=== PATIENT | male | born 1975 | race Caucasian/White ===

== ENCOUNTER 2024-09-29 12:29 | Inpatient (IN) | payer OTHER, SELFPAY ==
[2024-09-29] VITALS (29 sets, daily range): BP systolic 121–157; BP diastolic 81–102; PULSE 94–114; RESP 15–33; TEMP 36.7–36.9; O2SAT 94–100; BMI 35.4; BMI 35.6
--- NOTE | ~2024-09-29 | XR_ITS ---
CHEST RADIOGRAPH, PA AND LATERAL CLINICAL HISTORY: lower extremity edema . COMPARISON: 04/22/2013 TECHNIQUE: PA and lateral views of the chest. FINDINGS The cardiomediastinal silhouette is unremarkable. Blunting of the bilateral costophrenic sulci consistent with small bilateral pleural effusions. Increased interstitial markings are identified bilaterally, findings suggesting mild pulmonary vascul ar congestion. The lungs are otherwise clear. IMPRESSION: Bilateral pleural effusions, left greater than right. Mild pulmonary vascular congestion. Reviewed, dictated and finalized at location A.
--- NOTE | ~2024-09-29 | CT_ITS ---
EXAMINATION: CT abdomen pelvis w con DATE: 09/29/2024 16:26 INDICATION: Lower abdominal pain. Diarrhea TECHNIQUE: Computed tomography (CT) of the abdomen and pelvis was performed without intravenous contr ast. The dose-length product was 1207.41 mGy-cm. COMPARISON: None. FINDINGS: Small bilateral pleural effusions. Small consolidations in the lower lobes likely compressi ve atelectasis. Heart is borderline enlarged. There are a few coronary artery calcifications. There i s a gastric band. There are a few small patchy opacities in the lower lungs. The spleen, adrenal glan ds, pancreas are unremarkable. Gallbladder is unremarkable. There are a few too small to characterize low-attenuation lesions in the kidneys. Abdominal aorta is not aneurysmal. No enlarged lymph nodes i n the abdomen. Liver is heterogeneous. No enlarged lymph nodes in the pelvis. Bladder is unremarkable. Small amount of nonspecific anasarca. Prostate gland is mildly enlarged and partially calcified. Small amount of nonspecific fluid and fat stranding scattered throughout the abdomen and pelvis. No appendicitis. Segment focal thickening of the green of the mid transverse colon. Differential includes incomplete b owel wall distention, focal colitis or mass. Direct visualization is recommended. Probable congenital variant of the L4 vertebral body. IMPRESSION: 1. Segment focal thickening of the green of the mid transverse colon. Differential includes incomplet e bowel wall distention, focal colitis or mass. Direct visualization is recommended. 2. Small amount of nonspecific fluid and fat saturated scattered throughout the abdomen and pelvis. 3. Small bilateral pleural effusions. 4. Small consolidations in the lower lobes likely compressive atelectasis. 5. Small patchy opacities in the lower lungs. 6. Liver is heterogeneous possibly due to patchy focal fatty infiltration or hepatocellular disease. Other etiologies are possible. Consider a liver mass MRI for further assessment. Findings as above. Reviewed, dictated and finalized at location A. IMPRESSION: 1. Segment focal thickening of the green of the mid transverse colon. Different ial includes incomplete bowel wall distention, focal colitis or mass. Direct vi sualization is recommended. 2. Small amount of nonspecific fluid and fat saturated scattered throughout the abdomen and pelvis. 3. Small bilateral pleural effusions. 4. Small consolidations in the lower lobes likely compressive atelectasis. 5. Small patchy opacities in the lower lungs. 6. Liver is heterogeneous possibly due to patchy focal fatty infiltration or he patocellular disease. Other etiologies are possible. Consider a liver mass MRI for further assessment. Findings as above.
--- OUTSIDE RECORDS SUMMARY | 2024-09-29 13:16 | XMS_ITS | Encounter Summary ---
Author Organization [facility] Healthcare Address [address] [place] [address] Care Team Providers Care Bottler Helper Name Role Phone Roland Salmeron MD Primary Care Provider [phone] Reason for Visit * Reason Comments Abdominal Pain Pressure in his abdo marino area, X 4 weeks, Bowel movements are very small amounts, Gained 20 to 30 pounds since the beginning of August Encounter Details Date Type Department Care Team (Late st Contact Info) Description 09/29/2024 11:45 AM CDT Office Visit [facility] [address] [address] Maribel Doss NP [address] [place] [address] [address] [place] [address] Abdominal pressure (Primary Dx); Weight gain; Change in bowel movement; Elevated blood pressure reading in office with diagnosis of hypertension; Wound of right lower extremity, initial encounter Social History Tobacco Use Types Packs/Day Years Used Date Smoking Tobacco: Former Cigars Q uit: 2009 Passive Smoke Exposure: Never Smokeless Tobacco: Never Alcohol Use Standard Drinks/Week Comments No 0 (1 standard drink = 0.6 oz pur e alcohol) AUDIT-C Answer Date Recorded Q1: How often do you have a drink containing alcohol? Never 04/07/2024 Q2: How many drinks containi ng alcohol do you have on a typical day when you are drinking? Patient does not drink Q3: How often do you have si x or more drinks on one occasion? Never 04/07/2024 PHQ-2 Answer Date Recorded PHQ-2 Total Score (If total score is 3 or more points, staff should administer the PHQ-9) 0 08/14/2023 Education Answer Date Recorded What is the highest level of school you have completed or the highest degree you have received? 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 Not on file Not on f ile documented as of this encounter Last Filed Vital Signs Vital Sign Reading Time Taken Comments Blood Pressure 170/106 09/29/2024 11:43 AM CDT Pulse 114 09/29/2024 11:43 AM CDT Temperature 36.3 C (97.3 F) 09/29/2024 11:43 AM CDT Respiratory Rate 18 09/29/2024 11:4 3 AM CDT Oxygen Saturation 99% 09/29/2024 11: 43 AM CDT Inhaled Oxygen Concentration - - Weight 115.3 kg (254 lb 3.2 oz) 025 11:43 AM CDT Height 175.3 cm (5' 9.02) 09/29/2024 1 1:43 AM CDT Body Mass Index 37.52 09/29/2024 11:43 AM CDT documented in this encounter Patient Instructions * Patient Instructions* Maribel Doss NP - 09/29/2024 11:45 AM CDT documented in this encounter Ordered Prescriptions Prescription Sig Dispense Quantity Refills Last Filled Start Date End Date mupirocin (BACTROBAN) 2 % ointmentIndication s:Wound of right lower extremity, initial encounter Apply topically 3 (three) times a day 22 g 09/29/2024 doxycycline (VIBRAMYCIN) 100 mg capsuleIndications :Wound of right lower extremity, initial encounter Take 1 tablet/capsule (100 mg total) by mouth 2 (two) times a day for 10 days 20 tablet/capsule 09/29/2024 documented in this encounter Progress Notes * Maribel Doss, SCREEN PRINTING MACHINE OPERATOR HELPER - 09/29/2024 11:45 AM CDT Images from the original note were not included. Subjective/Objective Patient ID: Dillon Alex is a 49 y.o. male. This patient has verbally consented to recording this visit in order to utilize AI technology in generating this note. Chief Complaint Abdominal Pain (Pressure in his abdominal area, X 4 weeks, /Bowel movements are very small amounts,/Gained 20 to 30 pounds since the beginning of August) History of Present Illness Dillon Alex is a 49 year old male with diabetes who presents with abdominal pressure and significant weight gain. He has been experiencing abdominal pressure for the past four weeks, beginning around early August. The pressure is described as a feeling of compaction in the abdomen, particularly noticeable when lying down or engaging in physical activities such as moving furniture. No sharp abdominal pain is present, but he describes a sensation sanjay to being 'punched in the stomach'. He noted a significant weight gain of thirty pounds over the last four to five weeks, initially attributing some of it to birthday celebrations. He has a history of gastric band surgery, which affects his ability to vomit; only saliva or stomach acid may come up if he eats too fast. He has not experienced recent vomiting episodes. He reports decreased urination despite high water intake, consuming three to four 40-ounce bottles of water daily. He also notes a change in bowel habits over the past month, with bowel movements becoming less frequent and consisting of small, pebble-like stools. His last bowel movement was the daybefore the visit and was described as very difficult. He has noticed swelling in his feet and legs. He does not wear compression socks and has not experienced numbness or loss of sensation in his legs. He has a wound on his right leg, which has been present for about a week following an injury. The wound is weeping, and he is concerned about it due to his diabetic status. Both legs are equally swollen, but only the right leg has the wound. No recent vomiting, sharp abdominal pain, or numbness in the legs. He confirms swelling in both feet and legs, decreased urination, and changes in bowel movements. Review of Systems All other systems reviewed and are negative. Physical Exam EXTREMITIES: 1+ pitting edema in both legs and feet. SKIN: Weeping wound on right lower leg. Physical Exam Vitals reviewed. Constitutional: General: He is not in acute distress. Appearance: Normal appearance. He is not ill-appearing. HENT: Head: Normocephalic. Mouth/Throat: Lips: [place]. Cardiovascular: Rate and Rhythm: Regular rhythm. Tachycardia present. Heart sounds: Normal heart sounds. Pulmonary: Effort: Pulmonary effort is normal. Breath sounds: Normal breath sounds. Abdominal: General: Bowel sounds are normal. There is no distension. Palpations: Abdomen is soft. Tenderness: There is abdominal tenderness. There is no guarding or rebound. Comments: Patient with generalized tenderness/pressure with palpation over his abdomen. Musculoskeletal: Right lower le+ Edema present. Left lower le+ Edema present. Skin: General: Skin is warm. Comments: Right lower leg abrasion that is approximately 6 cm in diameter, there is macerated skin noted to wound bed. Wound is surrounded with erythema. No active drainage noted. Neurological: Mental Status: He is alert and oriented to person, place, and time. Psychiatric: Mood and Affect: Mood normal. Behavior: Behavior is cooperative. Vitals: 09/29/24 1143 BP: (!) 170/106 Pulse: 114 Resp: 18 Temp: 36.3 ??C (97.3 ??F) SpO2: 99% Weight: 115.3 kg (254 lb 3.2 oz) Height: 175.3 cm (5' 9.02) Past Medical History: Diagnosis Date Chronic combined systolic and diastolic heart failure (HCC) 2013 Congestive heart failure, NYHA class 1, chronic, combined - (Added by TW Conv) COVID 03/06/2021 History of noncompliance with medical treatment, presenting hazards to health 05/19/2021 Other benign neoplasm of skin of unspecified part of face Benign neoplasm of skin of face - (Added by TW Conv) Personal history of other endocrine, nutritional and metabolic disease History of type 2 diabetes mellitus - (Added by TW Conv) Type 2 diabetes mellitus with hyperglycemia (HCC) Diabetes mellitus type 2, uncontrolled - (Added by TW Conv) Current Outpatient Medications: amLODIPine (NORVASC) 5 mg tablet, Take 2 tablets (10 mg total) by mouth daily, Disp: 90 tablet, Rfl: 3 atorvastatin (LIPITOR) 20 mg tablet, Take 1 tablet (20 mg total) by mouth daily, Disp: 90 tablet, Rfl: 3 benzonatate (TESSALON) 200 mg capsule, Take 1 capsule (200 mg total) by mouth 3 (three) times a dayas needed for cough, Disp: 30 capsule, Rfl: 0 diclofenac sodium (VOLTAREN) 1 % gel, Apply 2 g topically 4 (four) times a day as needed, Disp: , Rfl: empagliflozin (JARDIANCE) 25 mg tablet, Take 1 tablet (25 mg total) by mouth daily, Disp: , Rfl: ergocalciferol (VITAMIN D) 50,000 unit capsule, Take 1 capsule (50,000 Units total) by mouth once aweek, Disp: 12 capsule, Rfl: 3 fluticasone propionate (FLONASE) 50 mcg/actuation nasal spray, 2 sprays daily, Disp: , Rfl: furosemide (LASIX) 20 mg tablet, Take 1 tablet (20 mg total) by mouth daily, Disp: 90 tablet, Rfl: 3 gabapentin (NEURONTIN) 300 mg capsule, Take 1 capsule (300 mg total) by mouth 3 (three) times a day, Disp: 270 capsule, Rfl: 3 hydroCHLOROthiazide (HYDRODIURIL) 25 mg tablet, Take 1 tablet (25 mg total) by mouth daily, Disp: 30 tablet, Rfl: 2 insulin glargine (LANTUS) 100 unit/mL vial for injection, Inject 80 Units under the skin nightly PLEASE DISPENSE PENS NOT THE VIALS, Disp: 67.5 mL, Rfl: 3 lancets 33 gauge misc, , Disp: , Rfl: lidocaine viscous (XYLOCAINE) 2 % solution, Apply 10 mL to the mouth or throat every 6 (six) hours as needed (sore throat) May mix with 30 ml of Mylanta, Disp: 100 mL, Rfl: 0 losartan (COZAAR) 100 mg tablet, Take 1 tablet (100 mg total) by mouth daily, Disp: 90 tablet, Rfl:3 metFORMIN (GLUCOPHAGE) 1,000 mg tablet, Take 1 tablet (1,000 mg total) by mouth 2 (two) times a daywith meals, Disp: 180 tablet, Rfl: 3 naproxen (NAPROSYN) 500 mg tablet, Take 1 tablet (500 mg total) by mouth, Disp: , Rfl: omeprazole (PriLOSEC) 40 mg capsule, Take 1 capsule (40 mg total) by mouth daily, Disp: 90 capsule,Rfl: 3 ondansetron (ZOFRAN) 4 mg tablet, , Disp: , Rfl: OneTouch Verio test strips strip, Use to test blood sugar 2 times per day., Disp: 100 each, Rfl: 11 pregabalin (LYRICA) 50 mg capsule, Take 1 capsule (50 mg total) by mouth 2 (two) times a day, Disp:30 capsule, Rfl: 0 sod picosulf-mag ox-citric ac (Clenpiq) 10 mg-3.5 gram- 12 gram/175 mL solution, Take as directed, Disp: 350 mL, Rfl: 0 spironolactone (ALDACTONE) 25 mg tablet, Take 1 tablet (25 mg total) by mouth daily, Disp: 30 tablet, Rfl: 2 doxycycline (VIBRAMYCIN) 100 mg capsule, Take 1 tablet/capsule (100 mg total) by mouth 2 (two) times a day for 10 days, Disp: 20 tablet/capsule, Rfl: 0 mupirocin (BACTROBAN) 2 % ointment, Apply topically 3 (three) times a day, Disp: 22 g, Rfl: 0 Allergies Allergen Reactions No Known Allergies Other (See comments) Reaction: Social History Tobacco Use Smoking status: Former Types: Cigars Quit date: 2009 Years since quittin.6 Passive exposure: Never Smokeless tobacco: Never Substance and Sexual Activity Drug use: Not Currently Comment: quit alcohol 8 years ago Sexual activity: Not Currently Partners: Female Alcohol Use: Not At Risk (04/07/2024) AUDIT-C Frequency of Alcohol Consumption: Never Average Number of Drinks: Patient does not drink Frequency of Binge Drinking: Never Past Surgical History: Procedure Laterality Date LAPAROSCOPIC GASTRIC BANDING Laparosc Gastric Restrictive Proc By Adjustable Gastric Band - (Added by TW Conv) Assessment/Plan 1. Abdominal pressure (Primary) 2. Weight gain 3. Change in bowel movement 4. Elevated blood pressure reading in office with diagnosis of hypertension 5. Wound of right lower extremity, initial encounter - doxycycline (VIBRAMYCIN) 100 mg capsule; Take 1 tablet/capsule (100 mg total) by mouth 2 (two) times a day for 10 days Dispense: 20 tablet/capsule; Refill: 0 - mupirocin (BACTROBAN) 2 % ointment; Apply topically 3 (three) times a day Dispense: 22 g; Refill:0 Results No results found for this or any previous visit (from the past 4 hours). Assessment & Plan Abdominal distension and pressure with abnormal bowel movements and rapid abnormal weight gain Abdominal distension, pain, and rapid weight gain suggest possible intestinal blockage or abdominalpathology. Differential includes fluid retention possibly due to renal dysfunction. Gastric band surgery may contribute. - Order abdominal CT scan to evaluate for intestinal blockage or other abdominal pathology. - Order blood work to assess renal function and other potential causes of fluid retention. - Recommend follow-up with primary care for further evaluation and management. - Consider ER evaluation if symptoms worsen. Bilateral lower extremity edema Bilateral lower extremity edema with pitting suggests fluid retention possibly due to renal dysfunction or systemic causes. Compression socks not used. - Recommend follow-up with primary care for evaluation of potential renal dysfunction and management of edema. - Consider use of compression socks after further evaluation. Right lower extremity wound with drainage in diabetic patient Right lower extremity wound with drainage in diabetic patient poses high risk for infection and complications such as osteomyelitis or sepsis. - Prescribe antibiotics to treat the wound infection. - Take a picture of the wound for medical records. - Recommend follow-up with primary care for wound management and monitoring. Education --Pt advise going to the ER for further workup and testing to rule out potential acute abdomen versus abdominal blockage versus acute kidney failure. Discussed with patient that the [facility] unfortunately does not order blood work or do CT scans. Patient verbalized understanding and states that he will go to the ER. EMS declined Disposition Treatment plan including expectations, follow up, and return precautions discussed with patient/parent, verbalizes understanding. Medication dosage, use, and potential adverse reactions discussed with patient/parent. Advised to follow up with PCP if symptoms do not resolve as expected or sooner if condition worsens. Signs/symptoms warranting ER evaluation reviewed. Patient and/or guardian was given an opportunity to ask questions, questions answered. Maribel Doss NP This office note has been partially dictated using Empriv[employer] software, and as a result portions of the record may have been created with this software. Occasional wrong-word or '[id number]' substitutions may have occurred due to the inherent limitations of voice recognition software. Read the chartcarefully and recognize, using context, where substitutions have occurred. Cosigned by Ruben Reyes MD at 09/29/2024 12:10 PM CDT documented in this encounter Plan of Treatment Not on file documented as of this encounter Visit Diagnoses Diagnosis Abdominal pressure- Primary Abdominal pain, unspecified site Weight gain Other symptoms concerning nutrition, metabolism, and development Change in bowel movement Elevated blood pressure reading in office with diagnosis of hypertension Wound of right lower extremity, initial encounter documented in this encounter Discontinued Medications Medication Sig Discontinue Reason Start Date End Da te mupirocin (BACTROBAN) 2 % ointmentIndications:Helen lulitis of left lower extremity Apply topically 3 (three) times a day Therapy completed 03/01/2024 09/29/2024 documented as of this encounter Care Teams Bottler Helper Relationship Specialty Start Date End Date Roland Salmeron MD [address] [place] [address] PCP - General Family Medicine 05/17/21 documented as of this encounter
--- OUTSIDE RECORDS SUMMARY | 2024-09-29 13:16 | XMS_ITS | Clinical Summary ---
Author Organization [facility] Address [address] [place] [address] Care Team Providers Care Retail Assistant Name Role Phone Unavailable Primary Care Provider Unavailabl e Source Comments [facility],non-owned Affiliates and Associated Physician Practices is amultiple site organization consisting of ambulatory clinics and hospital sitesin [place], [place], [place] and [place]. This disclosure is being madepursuant to the Care Everywhere program and may not contain all information available regarding this patient. Last updated 17.[facility] Allergies No known active allergies Medications * Be aware that medications may not be up to date on this document. Alwaysverify current medications with the patient. diclofenac sodium (Voltaren) 1 % gel Apply 2 (two) g to affected area 4 times daily as needed 2 g 3 3 Active atorvastatin (Lipitor) 20 MG tablet Take 1 (one) tablet by mouth once daily 2 Active empagliflozin (Jardiance) 25 MG tablet Take 1 (one) tablet by mouth once daily 2 Active fluticasone propionate (Flonase) 50 MCG/ACT nasal spray SHAKE LIQUID AND USE 2 SPRAYS IN EACH NOSTRIL DAILY 2 Active insulin glargine (Lantus/Semgle e) 100 units/ml injection Inject 80 (eighty) Units subcutaneously at bedtime 2 Active B-D ULTRA-FINE 33 LANCETS MISC Use to test blood sugar 2 times per day. 1 Active naproxen (Naprosyn) 500 MG tablet Take 1 (one) tablet by mouth 2 times daily with morning and evening meal 2 Active ondansetron (Zofran) 4 MG tablet 2 Active pregabalin (Lyrica) 50 MG capsule Take 1 (one) capsule by mouth 2 times daily 2 Active furosemide (Lasix) 20 MG tablet Take 1 (one) tablet by mouth once daily 2 Active vitamin D, ergocalciferol , (Drisdol) 1.25 MG (15436 UT) capsuleIndicat ions:Idiopathi c peripheral neuropathy,Low vitamin D level TAKE 1 CAPSULE BY MOUTH EVERY 7 DAYS 12 capsule 4 Active gabapentin (Neurontin) 300 MG capsule Take 1 (one) capsule by mouth 3 times daily 90 capsule 3 4 Active Active Problems No known active problems Social History Tobacco Use Types Packs/Day Years Used Date Smoking Tobacco: Never Smokeless Tobacco: Never Tobacco Cessation:Counseling Given: Not Answered PHQ-2 Answer Date Recorded Patient Health Questionnaire-2 Score 0 10/08/2023 Sex and Gender Information Value Date Recorded Sex Assigned at Not on file 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 Gender Identity Not on file Sexual Orientation Not on file Last Filed Vital Signs Vital Sign Reading Time Taken Comments Blood Pressure 157/98 06/26/2023 1:50 PM CDT Pulse 98 06/26/2023 1:50 PM CDT Temperature 36.8 C (98.3 F) 06/26/2023 1:50 PM CDT Respiratory Rate 16 06/26/2023 1:50 PM CDT Oxygen Saturation 99% 06/19/2023 1:23 PM CDT Inhaled Oxygen Concentration - - Weight 106.6 kg (235 lb) 06/26/2023 1:50 PM CDT Height 175.3 cm (5' 9) 06/26/2023 1:50 PM CDT Body Mass Index 34.7 06/26/2023 1:50 PM CDT Plan of Treatment Health Maintenance Due Date Last Done Comments COLOGUARD (AGES 45-75) - COLON CA SCREENING 1977 COLON MONITORING 1977 COLONOSCOPY - COLON CA SCREENING 1977 CT COLONOGRAPHY - COLON CA SCREENING 1977 Colorectal Cancer Screening 1977 FIT - COLON CA SCREENING 1977 FLEX SIG - COLON CA SCREENING 1977 HIV SCREENING 1992 HEPATITIS C SCREENING 08/12/1995 DTAP/TDAP/TD VACCINES (1 - Tdap) 1996 HEPATITIS B VACCINE (1 of 3 - 19+ 3-dose series) 1996 COVID-19 VACCINE (1 - season) 2023 DEPRESSION SCREENING 02/13/2024 10/09/2023 INFLUENZA VACCINE (#1) 2024 2, 12/29/2018, 01/27/2018, Additional history exists SCREENING FOR DIABETES 05/30/2025 3, 02/21/2022, 02/21/2022, Additional history exists ZOSTER VACCINE (1 of 2) 08/17/2027 HIB VACCINE Aged Out No longer eligi ble based on patient's age to complete this topic HPV VACCINE Aged Out No longer eligi ble based on patient's age to complete this topic MENINGOCOCCAL (Group B) VACCINE SHARED DECISION-MAKING Aged Out No longer eligible based on patient's age to complete this topic MENINGOCOCCAL GROUPS A/C/Y/W VACCINE Aged Out No longer eligible based on patient's age to complete this topic PNEUMOCOCCAL VACCINE Aged Out No long er eligible based on patient's age to complete this topic Insurance [facility]
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
--- NOTE | 2024-09-29 13:45 | ED.EXTPRO ---
HPI - Extremity Problem General Chief complaint: Extremity Problem,Nontraumatic <Reena Fowler PA-C - Last Filed: 09/30/24 09:32> Stated complaint: bilateral leg swelling <Reena Fowler PA-C - Last Filed: 09/30/24 09:32> Time Seen by Provider: 09/29/24 13:45 <Reena Fowler PA-C - Last Filed: 09/30/24 09:32> Focused HPI: This is a 49 year old male that presents to the ER for lower extremity edema. Reports he has gained about 30 lbs in the last month. Reports constipation. He is not urinating that much. Reports abdominal bloating/fullness. Reports history of CHF. He is not currently on diuretics. GENERAL: Well-appearing, well-nourished, and in no acute distress. HEAD: Normocephalic, atraumatic. CHEST: Clear to auscultation. ?No respiratory distress. HEART: Regular rate and rhythm.? NEURO: ?Alert and oriented x3. Patient screened in triage and initial orders placed.? ?Additional care and disposition to be based upon?diagnostic testing and treatment. <Reena Fowler PA-C - Last Filed: 09/30/24 09:32> History of Present Illness HPI Narrative: Agree with HPI <Brian Sifuentes MD - Last Filed: 09/29/24 21:54> Related Data Home medications: Home Medications ?Medication ?Instructions ?Recorded ?Confirmed ?Last Taken ?Type doxycycline hyclate 100 mg capsule 100 mg PO Q12H 09/29/24 09/29/24 Unknown History insulin glargine 100 unit/mL 80 unit subcut QPM 09/29/24 09/29/24 09/28/24 History subcutaneous solution (Lantus U-100 Insulin) metformin 1,000 mg tablet 1,000 mg PO DAILY 09/29/24 09/29/24 09/29/24 History mupirocin 2 % topical ointment 1 applic topical TID 09/29/24 09/29/24 Unknown History <RAVI Carrera Last Filed: 09/30/24 09:32> Allergies/Adverse reactions: Allergies Allergy/AdvReac Type Severity Reaction Status Date / Time No Known Allergies Allergy Verified 09/29/24 12:51 <Reena Fowler PA-C - Last Filed: 09/30/24 09:32> Review of Systems Review of Systems: Gen.: Denies fevers or chills Eyes: Denies eye pain or visual change ENT: Denies congestion Respiratory: Denies shortness of breath or cough CV: Denies chest pain or palpitations GI: Denies abdominal pain nausea, emesis or diarrhea denies burning, urgency, frequency or hematuria Musculoskeletal: Denies back pain or muscle pain. Leg swelling Neuro: Denies numbness, tingling, weakness or focal weakness Skin: Denies rash Except as documented, all other systems reviewed and negative <Brian Sifuentes MD - Last Filed: 09/29/24 21:54> [facility] Past Medical History Medical History: Medical History (Updated 09/30/24 @ 09:21 by Laila Bragg DO) Alcoholism in recovery In recovery since 2013 Essential hypertension Type 2 diabetes mellitus treated with insulin CHF (congestive heart failure) <Reena Fowler PA-C - Last Filed: 09/30/24 09:32> Surgical History Surgical History: Surgical History (Updated 09/29/24 @ 23:27 by Laila Bragg DO) History of laparoscopic adjustable gastric banding <Reena Fowler PA-C - Last Filed: 09/30/24 09:32> Family History Family History: Family History (Updated 09/29/24 @ 21:24 by Nenita Solano RN) Father Aortic valve replaced <Reena Fowler PA-C - Last Filed: 09/30/24 09:32> Social History Social History: Social History (Updated 09/29/24 @ 23:31 by Laila Bragg DO) Social History: He lives in [place]. 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 Code status: Full code (patient has living will) Surrogate decision maker: Smoking status: Never smoker Alcohol intake: former Substance use: never Lack of Transportation: No Lack of Food: Never True Current Housing: I Have Housing Concerned About Future Housing: No Difficulty Paying Gas/Electric Bills: No Difficulty Paying for Meds: No Currently Unemployed: No Education: Associate Degree Difficulty w/ Childcare or Family Care: No Spiritual care concerns: No <Reena Fowler PA-C - Last Filed: 09/30/24 09:32> Exam Narrative: APPEARANCE: No acute distress, nontoxic, resting in bed EYES: EOMI HEENT: Normocephalic, atraumatic, OMM RESPIRATORY: No respiratory distress Clear to auscultation bilaterally with no rhonchi wheezing or rales. CARDIOVASCULAR: Regular rate and rhythm without murmurs rubs or gallops. ABDOMINAL: Soft, nontender, nondistended, no rebound or guarding MUSCULOSKELETAl: Moves all extremities. 2+ pitting edema bilateral lower extremities. NEURO: Awake and alert. Following commands, speech normal, no focal deficits SKIN:: Open wound to the RLE without active drainage. PSYCHIATRIC: Normal affect/mood, <Brian Sifuentes MD - Last Filed: 09/29/24 21:54> Course Vital Signs Vital signs: Vital Signs Temperature 98.4 F 09/29/24 12:50 Pulse Rate 110 H 09/29/24 12:50 Respiratory Rate 18 09/29/24 12:50 Blood Pressure 148/102 H 09/29/24 12:50 Pulse Oximetry 98 09/29/24 12:50 Oxygen Delivery Room Air 09/29/24 12:50 Temperature 97.8 F 09/30/24 07:15 Pulse Rate 90 09/30/24 07:15 Respiratory Rate 14 09/30/24 07:15 Blood Pressure 111/66 09/30/24 07:15 Pulse Oximetry 98 09/30/24 07:15 Oxygen Delivery Room Air 09/30/24 04:00 <Reena Fowler PA-C - Last Filed: 09/30/24 09:32> Vital Signs Temperature 98.4 F 09/29/24 12:50 Pulse Rate 110 H 09/29/24 12:50 Respiratory Rate 18 09/29/24 12:50 Blood Pressure 148/102 H 09/29/24 12:50 Pulse Oximetry 98 09/29/24 12:50 Oxygen Delivery Room Air 09/29/24 12:50 Temperature 97.8 F 09/30/24 07:15 Pulse Rate 90 09/30/24 07:15 Respiratory Rate 14 09/30/24 07:15 Blood Pressure 111/66 09/30/24 07:15 Pulse Oximetry 98 09/30/24 07:15 Oxygen Delivery Room Air 09/30/24 04:00 <Brian Sifuentes MD - Last Filed: 09/29/24 21:54> MDM - Extremity (Nontraumatic) MDM Narrative Medical decision making narrative: 49-year-old male presents to the ED for leg swelling and lower abdominal distension/swelling. Initial EKG was obtained and did show concerns for ST elevations. At, 1435, I spoke with Dr. Traore, interventional cardiology, suspects these are old ST elevations given he is asymptomatic. Patient was adamant that he was not having any chest pain, shortness of breath, abdominal pain, numbness, tingling. Patient's symptomatology is reassuring that there is no active ischemia. BNP was significantly elevated at greater than 5000. Chest x-ray did show pulmonary vascular congestion. Troponin elevated at 1.1, spoke with cards again, continues to recommend trending trops, start heparin if increasing, no heparin if decreasing. Repeat troponin was stable so heparin was not started at this time patient was given 40 mg Lasix due to the pulmonary vascular congestion and significant leg swelling. He will require admission given elevated troponins with EKG changes as well as CHF. Patient was agreeable to plan. I discussed the case with hospitalist who will admit the patient. <Brian Sifuentes MD - Last Filed: 09/29/24 21:54> Differential Diagnosis Differential diagnosis: Likely other (ACS, CHF, stasis ulcers, cellulitis, electrolyte abnormality) <Brian Sifuentes MD - Last Filed: 09/29/24 21:54> Lab Data Attestation: I reviewed the patient's lab results. <Brian Sifuentes MD - Last Filed: 09/29/24 21:54> Result diagrams: 09/30/24 03:42 09/30/24 03:42 <Reena Fowler PA-C - Last Filed: 09/30/24 09:32> Labs: Lab Results 09/29/24 09/29/24 09/29/24 Range/Units 14:41 16:09 17:30 WBC 8.1 (4.5-10.0) K/mm3 RBC 4.81 (4.6-6.20) M/mm3 Hgb 13.5 L (14.0-18.0) g/dL Hct 41.2 L (42.0-52.0) % MCV 85.7 (80-100) fl MCH 28.1 (26-34) pg MCHC 32.8 (32-36) g/dl RDW 14.3 (11.5-14.5) % Plt Count 392 H (150-375) k/mm3 MPV 9.9 (7.4-10.4) fl Immature Gran % (Auto) 0.4 (0-0.5) % Neut % (Auto) 63.1 (45.5-73.1) % Lymph % (Auto) 26.9 (18.3-44.2) % Linn % (Auto) 8.0 (2.6-8.5) % Eos % (Auto) 0.9 (0-4.4) % Baso % (Auto) 0.7 (0.2-1.2) % Lymph # (Auto) 2.19 (0.9-3.2) K/mm3 Linn # (Auto) 0.7 H (0.1-0.6) K/mm3 Eos # (Auto) 0.1 (0-0.3) K/mm3 Baso # (Auto) 0.1 (0.0-0.1) K/mm3 Abs Immat Gran (auto) 0.03 (0.00-0.031) K/mm3 Absolute Neuts (auto) 5.1 (1.3-6.7) K/mm3 Absolute Nucleated RBC 0.000 (0.0-0.012) K/mm3 Nucleated RBC % 0.0 (0.0-0.2) % PT 14.8 H (11.1-14.7) Seconds INR 1.2 APTT 25.2 (22.3-36.8) Seconds Sodium 134 L (137-145) mmol/L Potassium 4.2 (3.4-5.0) mmol/L Chloride 102 (98-107) mmol/L Carbon Dioxide 27 (22-30) mmol/L Anion Gap 5 (4-12) mmol/L BUN 17 (9-20) mg/dL Creatinine 0.78 (0.7-1.3) mg/dL Estim Creat Clear Calc 127 ml/min Estimated GFR > 60 (59 - ) Glucose 269 H (65-110) mg/dL Calcium 9.0 (8.4-10.2) mg/dL Total Bilirubin 0.7 (0.2-1.3) mg/dL AST 46 (17-59) U/L ALT 83 H (6-50) U/L Alkaline Phosphatase 112 (38-126) U/L Troponin I 1.350 H* 1.350 H* (0.000-0.034) ng/mL NT-Pro-B Natriuret Pep 5660 H (19.9-100) pg/mL Total Protein 6.9 (6.3-8.2) g/dL Albumin 3.3 L (3.5-5.1) g/dL Lipase 40 (23-300) U/L Urine Color Yellow (Yellow) Urine Appearance Cloudy H (Clear) Urine pH 7.5 (5.0-9.0) Ur Specific [place] 1.012 (1.001-1.035) Urine Protein 2+ H (Negative) mg/dL Urine Glucose (UA) 3+ H (Negative) mg/dL Urine Ketones Negative (Negative) mg/dL Ur Blood (Man) Trace (Negative) Urine Nitrate Negative (Negative) Urine Bilirubin Negative (Negative) Urine Urobilinogen 0.2 (<2.0) mg/dL Leukocyte Esterase Rfl 2+ H (Negative) YAW/UL Urine RBC 0-2 (0-2) /hpf Urine WBC 11-20 H (0-3) /hpf Ur Squamous Epith Cells Occasional (Few) /hpf Urine Bacteria Rare /hpf Urine Casts 0-2 <Reena Fowler PA-C - Last Filed: 09/30/24 09:32> Lab Results 09/29/24 09/29/24 09/29/24 Range/Units 14:41 16:09 17:30 WBC 8.1 (4.5-10.0) K/mm3 RBC 4.81 (4.6-6.20) M/mm3 Hgb 13.5 L (14.0-18.0) g/dL Hct 41.2 L (42.0-52.0) % MCV 85.7 (80-100) fl MCH 28.1 (26-34) pg MCHC 32.8 (32-36) g/dl RDW 14.3 (11.5-14.5) % Plt Count 392 H (150-375) k/mm3 MPV 9.9 (7.4-10.4) fl Immature Gran % (Auto) 0.4 (0-0.5) % Neut % (Auto) 63.1 (45.5-73.1) % Lymph % (Auto) 26.9 (18.3-44.2) % Linn % (Auto) 8.0 (2.6-8.5) % Eos % (Auto) 0.9 (0-4.4) % Baso % (Auto) 0.7 (0.2-1.2) % Lymph # (Auto) 2.19 (0.9-3.2) K/mm3 Linn # (Auto) 0.7 H (0.1-0.6) K/mm3 Eos # (Auto) 0.1 (0-0.3) K/mm3 Baso # (Auto) 0.1 (0.0-0.1) K/mm3 Abs Immat Gran (auto) 0.03 (0.00-0.031) K/mm3 Absolute Neuts (auto) 5.1 (1.3-6.7) K/mm3 Absolute Nucleated RBC 0.000 (0.0-0.012) K/mm3 Nucleated RBC % 0.0 (0.0-0.2) % PT 14.8 H (11.1-14.7) Seconds INR 1.2 APTT 25.2 (22.3-36.8) Seconds Sodium 134 L (137-145) mmol/L Potassium 4.2 (3.4-5.0) mmol/L Chloride 102 (98-107) mmol/L Carbon Dioxide 27 (22-30) mmol/L Anion Gap 5 (4-12) mmol/L BUN 17 (9-20) mg/dL Creatinine 0.78 (0.7-1.3) mg/dL Estim Creat Clear Calc 127 ml/min Estimated GFR > 60 (59 - ) Glucose 269 H (65-110) mg/dL Calcium 9.0 (8.4-10.2) mg/dL Total Bilirubin 0.7 (0.2-1.3) mg/dL AST 46 (17-59) U/L ALT 83 H (6-50) U/L Alkaline Phosphatase 112 (38-126) U/L Troponin I 1.350 H* 1.350 H* (0.000-0.034) ng/mL NT-Pro-B Natriuret Pep 5660 H (19.9-100) pg/mL Total Protein 6.9 (6.3-8.2) g/dL Albumin 3.3 L (3.5-5.1) g/dL Lipase 40 (23-300) U/L Urine Color Yellow (Yellow) Urine Appearance Cloudy H (Clear) Urine pH 7.5 (5.0-9.0) Ur Specific Mes[place] 1.012 (1.001-1.035) Urine Protein 2+ H (Negative) mg/dL Urine Glucose (UA) 3+ H (Negative) mg/dL Urine Ketones Negative (Negative) mg/dL Ur Blood (Man) Trace (Negative) Urine Nitrate Negative (Negative) Urine Bilirubin Negative (Negative) Urine Urobilinogen 0.2 (<2.0) mg/dL Leukocyte Esterase Rfl 2+ H (Negative) YAW/UL Urine RBC 0-2 (0-2) /hpf Urine WBC 11-20 H (0-3) /hpf Ur Squamous Epith Cells Occasional (Few) /hpf Urine Bacteria Rare /hpf Urine Casts 0-2 <Brian Sifuentes MD - Last Filed: 09/29/24 21:54> Imaging Data Radiologist's impression: Impressions Chest X-Ray 09/29/24 15:20 IMPRESSION: Bilateral pleural effusions, left greater than right. Mild pulmonary vascular congestion. Abdomen/Pelvis CT 09/29/24 16:27 IMPRESSION: 1. Segment focal thickening of the green of the mid transverse colon. Differential includes incomplete bowel wall distention, focal colitis or mass. Direct visualization is recommended. 2. Small amount of nonspecific fluid and fat saturated scattered throughout the abdomen and pelvis. 3. Small bilateral pleural effusions. 4. Small consolidations in the lower lobes likely compressive atelectasis. 5. Small patchy opacities in the lower lungs. 6. Liver is heterogeneous possibly due to patchy focal fatty infiltration or hepatocellular disease. Other etiologies are possible. Consider a liver mass MRI for further assessment. Findings as above. <Brian Sifuentes MD - Last Filed: 09/29/24 21:54> ECG Data EKG #1: Attestation EKG: I personally reviewed and interpreted this ECG as follows: <Brian Sifuentes MD - Last Filed: 09/29/24 21:54> ECG completion date: 09/29/24 <Brian Sifuentes MD - Last Filed: 09/29/24 21:54> ECG completion time: 14:28 <Brian Sifuentes MD - Last Filed: 09/29/24 21:54> Interpretation: Sinus tachycardia rate of 108, normal axis, normal intervals, ST elevations in III and AVF with depression in I aVL <Brian Sifuentes MD - Last Filed: 09/29/24 21:54> EKG #2: Attestation EKG: I personally reviewed and interpreted this ECG as follows: <Brian Sifuentes MD - Last Filed: 09/29/24 21:54> ECG completion date: 09/29/24 <Brian Sifuentes MD - Last Filed: 09/29/24 21:54> ECG completion time: 14:33 <Brian Sifuentes MD - Last Filed: 09/29/24 21:54> Interpretation: Sinus tachycardia rate of 109, normal axis, normal intervals, ST elevations in III and AVF with depression in I aVL. No change from prior <Brian Sifuentes MD - Last Filed: 09/29/24 21:54> EKG #3: Attestation EKG: I personally reviewed and interpreted this ECG as follows: <Brian Sifuentes MD - Last Filed: 09/29/24 21:54> ECG completion date: 09/29/24 <Brian Sifuentes MD - Last Filed: 09/29/24 21:54> ECG completion time: 17:13 <Brian Sifuentes MD - Last Filed: 09/29/24 21:54> Prior ECG tracings: available for review <Brian Sifuentes MD - Last Filed: 09/29/24 21:54> Interpretation: Sinus tachycardia rate of 106 normal axis and intervals, continued ST-elevation mentioned in III and AVF with depression in aVL. No change from prior <Brian Sifuentes MD - Last Filed: 09/29/24 21:54> Critical Care Time Critical Care Time Critical Care Time: Yes <Reena Fowler PA-C - Last Filed: 09/30/24 09:32> Total Critical Care Time: 35 <Reena Fowler PA-C - Last Filed: 09/30/24 09:32> Discharge Plan Discharge Clinical Impression: Elevated troponin, Acute electrocardiogram changes, Acute hyperglycemia CHF (congestive heart failure) Qualifiers: Heart failure type: unspecified Heart failure chronicity: acute on chronic Qualified Code(s): I50.9 - Heart failure, unspecified <Reena Fowler PA-C - Last Filed: 09/30/24 09:32> Patient Disposition: Still a Patient <Reena Fowler PA-C - Last Filed: 09/30/24 09:32> Condition: Stable <Reena Fowler PA-C - Last Filed: 09/30/24 09:32>
--- NOTE | 2024-09-29 13:46 | ECG_ITS ---
Test Date: 2024-09-29 14:28:39 Measurements Intervals [place] Rate: 108 P: 35 AR: 151 QRS: 37 QRSD: 114 T: -63 QT: 338 QTc: 454 Interpretive Statements SINUS TACHYCARDIA INCOMPLETE LEFT BUNDLE BRANCH BLOCK INFERIOR INFARCT, AGE INDETERMINATE ANTEROLATERAL INFARCT, AGE INDETERMINATE ST-T WAVE ABNORMALITY IN HIGH LATERAL LEADS- CONSIDER ISCHEMIA ABNORMAL ECG No previous ECG available for comparison Electronically Signed On 09-29-2024 15:03:39 CDT by Colin Perdomo D.O.
[2024-09-29 14:55] LABS: Hematocrit 41.2 % (42.0-52.0); Hemoglobin 13.5 g/dL (14.0-18.0); Immature Granulocyte Percent A 0.4 % (0-0.5); Lymphocytes Absolute Auto 2.19 K/mm3 (0.9-3.2); Mean Corpuscular HGB Conc 32.8 g/dl (32-36); Mean Corpuscular Hemoglobin 28.1 pg (26-34); Mean Corpuscular Volume 85.7 fl (80-100); Nucleated Red Blood Cells Absolute Auto 0.000 K/mm3 (0.0-0.012); Nucleated Red Blood Cells Perc 0.0 % (0.0-0.2); Platelet Count Result 392 k/mm3 (150-375); Red Blood Count 4.81 M/mm3 (4.6-6.20); White Blood Count 8.1 K/mm3 (4.5-10.0)
[2024-09-29 15:05] LABS: Alanine Aminotransferase 83 U/L (6-50); Albumin Level 3.3 g/dL (3.5-5.1); Alkaline Phosphatase 112 U/L (38-126); Anion Gap 5 mmol/L (4-12); Aspartate Amino Transferase 46 U/L (17-59); Bilirubin,Total 0.7 mg/dL (0.2-1.3); Blood Urea Nitrogen 17 mg/dL (9-20); Calcium 9.0 mg/dL (8.4-10.2); Carbon Dioxide 27 mmol/L (22-30); Chloride 102 mmol/L (98-107); Estimated CRCL calculation 127 ml/min; Estimated Glomerular Filt Rate > 60; Glucose 269 mg/dL (65-110); Lipase 40 U/L (23-300); Potassium 4.2 mmol/L (3.4-5.0); Sodium 134 mmol/L (137-145); Total Protein 6.9 g/dL (6.3-8.2)
[2024-09-29 15:09] LABS: INR 1.2; Partial Thromboplastin Time 25.2 Seconds (22.3-36.8); Prothrombin Time 14.8 Seconds (11.1-14.7)
[2024-09-29 15:14] LABS: NT Pro B Type Natriuretic Pept 5660 pg/mL (19.9-100)
[2024-09-29 16:12] LABS: Troponin I 1.350 ng/mL (0.000-0.034)
[2024-09-29 16:40] LABS: Add Urine Microscopic? YES; Appearance Urine Cloudy (Clear); Glucose Urine UA 3+ mg/dL (Negative); Leukocyte Esterase Ur 2+ LEU/UL (Negative); Nitrate Urine Negative (Negative); Non Pathogenic Casts 0-2; Specific Grav Ur 1.012 (1.001-1.035)
--- OUTSIDE RECORDS SUMMARY | 2024-09-29 16:42 | XMS_ITS | Clinical Summary ---
Author Organization [facility] Address [address] [place] [address] Care Team Providers Care Roller Shop Supervisor Name Role Phone Roland Salemron MD Primary Care Provider [phone] Allergies Active Allergy Reactions Criticality Noted Date [...] a1c Assessment & Plan (03/25/2022 12:31 PM FUR DRUMMER): BMI Follow-up includes: nutrition counseling, exercise counseling and education provided. Weight is down from last couple visits Continuing insulin, Jardiance, metformin BP has worsened, increasing amlodipine to 10 mg daily Continue losartan, furosemide Assessment & Plan (02/22/2022 3:04 PM FUR DRUMMER): BMI Follow-up includes: nutrition counseling, exercise counseling and education provided. Referral to religious educator, number to schedule has been given [...] 08/22/2021 Assessment & Plan (04/22/2022 2:05 PM FUR DRUMMER): Adding hydrochlorothiazide 25 mg daily Continue amlodipine, [...] 05/18/2021 Assessment & Plan (04/22/2022 2:07 PM FUR DRUMMER): BMI Follow-up includes: nutrition counseling, exercise counseling and education provided. Assessment & Plan (05/19/2021 11:21 AM CDT): BMI Follow-up includes: nutrition counseling, exercise counseling and education provided. Dysphagia, oropharyngeal phase 05/13/2020 Overview (05/13/2020): Over the past year 8197-3712 a slow onset of food sticking has [...] call them to schedule the initial visit ([phone]) Will repeat overdue echocardiogram as well Assessment & Plan (03/25/2020 8:36 AM FUR DRUMMER): I explained today that his lifestyle and [...] plan Assessment & Plan (03/25/2020 8:30 AM FUR DRUMMER): Today is uncontrolled with marked lack of [...] months. Assessment & Plan (02/25/2018 4:31 PM FUR DRUMMER): Diabetes is improving with treatment. Continue current treatment regimen. Dietary recommendations for ADA diet. Regular aerobic exercise. Discussed foot care. Diabetes will be reassessed in 3 months. Bacterial sinusitis 04/13/2016 Adverse effect of angiotensin-converting enzyme inhibitor 12/02/2015 Tinea corporis 02/18/2015 Nondependent alcohol abuse, in remission 014 Overview (05/25/2017): Impression: SOBER 2 YEARS 05/20/15 Hypertension 02/27/2013 Assessment & Plan (03/25/2020 8:29 AM FUR DRUMMER): Uncomntrolled, the compliance is a question Obstructive sleep apnea syndrome 02/27/2013 Snoring 12/11/2011 Morbid obesity 12/02/2009 Overview (05/25/2017): Impression: losing weight but paradoxically the A1C is up Resolved Problems Problem Noted Date Diagnosed Date Resolved Date COVID 03/06/2021 05/18/2021 Type 2 diabetes mellitus with hyperglycemia 06/05/2017 11/19/2017 Encounters Date Type Department Care Team Description 09/29/2024 11:45 AM CDT Office Visit [facility] [address] [phone] Maribel Doss NP Abdominal pressure (Primary Dx); Weight gain; Change in bowel movement; Elevated blood pressure reading in office with diagnosis of hypertension; Wound of right lower extremity, initial encounter 07/04/2024 Results Follow-Up [facility] [address] [phone] Evens Larose NP Throat culture Throat 07/02/2024 3:39 PM CDT - 07/02/2024 11:59 PM CDT Hospital Encounter [address] [id number] Sore throat Discharge Disposition: Discharge to home or self care 07/02/2024 3:00 PM CDT Office Visit [facility] [address] [phone] Gregoria Escobar NP Nasal congestion [...] on file Legal Sex Male 12:30 AM FUR DRUMMER Gender Identity Male 08/22/2021 1:34 PM CDT [...] (HCC) LIPID PANEL Routine 02/21/2022 9:17 AM FUR DRUMMER Hypertensive heart disease with chronic combined systolic and diastolic congestive heart failure (HCC) ALBUMIN CREATININE RATIO, URINE Routine 02/21/2022 9:17 AM FUR DRUMMER Obesity, diabetes, and hypertension syndrome (HCC) DIABETES FOOT EXAM Routine 03/25/2020 from Last 3 Months or Most Recently Relevant to Health Maintenance Results * Throat culture Throat (07/02/2024 3:39 PM CDT) Report Final Report: Negative Comment:Testing performed by : [facility], [address] [place]., [address] Throat 07/02/2024 3:39 PM CDT 07/03/2024 12:55 AM CDT Narrative EULALIO Brown 07/03/2024 10:03 PM CDT Testing performed by [facility] ([phone]). Gregoria Escobar NP LAB MICROBIOLOGY - GENERAL ORDERABLES Final Result EULALIO [address] Department [place] [address] * POCT rapid strep A [...] Ag POC Presumptive Negative Presumptive Negative, Invalid [facility] Nasal 07/02/2024 3:24 PM CDT Gregoria Escobar NP POINT OF CARE TEST ORDERAB LES Edited Result - Final Performing Organization Address City/[facility]/ZIP Co de Phone Number [facility] ED[facility] [address] * eGFR (05/30/2022 2:58 PM CDT) [...] LAB BLOOD ORDERABLES Final Result EULALIO ROMEO [address] Department [place] [address] * (ABNORMAL) Hemoglobin A1c (05/30/2022 2:58 PM CDT) Hgb A1C 11.5(H) 4.0 - 5.6 % EULALIO ROMEO Estimated Average Glucose 283 mg/dL EULALIO Comment: The ADA recommends reporting an estimated Average Glucose (eAG) with all Hemoglobin A1c results using the equation derived from a study of 507 normal and diabetic adults. Minority populations were underrepresented and children were not included. (Diabetes Care 31:1204-2939, 2008). The eAG is not equivalent to a fasting glucose. Blood 05/30/2022 2:58 PM CDT 05/30/2022 6:40 PM CDT Result [facility] Roland Salmeron MD LAB BLOOD ORDERABLES Final Result Performing Organization Address [facility] Phone Number [facility] [id number] [place] [address] * (ABNORMAL) Albumin Creatinine Ratio, Urine (02/21/2022 9:17 AM FUR DRUMMER) Albumin Ur 987.5 mg/L EULALIO Comment: Interpretive Data No reference range established. Current interpretive data was last revised 2018. Creatinine Ur 57.7 mg/dL EULALIO Comment: Interpretive Data No reference range established. Current interpretive data was last revised 2018. Albumin Creatinine Ratio, Ur 1,711(H) 1 - 29 mg/g EULALIO Urine 02/21/2022 9:17 AM FUR DRUMMER 02/21/2022 6:01 PM FUR DRUMMER Result [facility] Roland Salmeron MD LAB URINE ORDERABLES Final Result Performing Organization Address [facility] Phone Number [facility] [address] [address] [place] [address] * (ABNORMAL) Lipid panel (02/21/2022 9:17 AM FUR DRUMMER) Cholesterol 201(H) 30 - 199 mg/dL EULALIO [...] 6 EULALIO ROMEO Blood 02/21/2022 9:17 AM FUR DRUMMER 02/21/2022 6:01 PM FUR DRUMMER Roland Salmeron MD LAB BLOOD ORDERABLES Final Result EULALIO [address] [address] Department [place] [address] * DIABETES FOOT EXAM (03/25/2020) Diabetic Foot Exam Normal Historical Provider HEALTH MAINTENANCE Final Result from Last 3 Months or Most Recently Relevant to Health Maintenance Insurance CHOICE [facility] [place] [facility] H[facility]/PPO Address: [address] [place] [address] [facility] H[facility]/PPO Address: [address] [place] [address] [facility] CHOICE PLUS [employer] OPEN ACCESS [facility] CHOICE PLUS Care Teams Roller Shop Supervisor Relationship Specialty Start Date End Date Roland Salmeron MD [address] [place], [place] [id number] PCP - General Family Medicine 05/17/21
--- OUTSIDE RECORDS SUMMARY | 2024-09-29 16:42 | XMS_ITS | Encounter Summary ---
Author Organization [facility] Healthcare Address [address] [place] [address] Care Team Providers Care Tetryl Screen Operator Name Role Phone Roland Salmeron MD Primary Care Provider [phone] Reason for Visit * Reason Comments Abdominal Pain Pressure in his abdo marino area, X 4 weeks, Bowel movements are very small amounts, Gained 20 to 30 pounds since the beginning of August Encounter Details Date Type Department Care Team (Late st Contact Info) Description 09/29/2024 11:45 AM CDT Office Visit [facility] at [address] [address] Maribel Doss NP [address] [place] [address] [address] [place] [address] Abdominal pressure (Primary Dx); Weight [...] on file Legal Sex Male 12:30 AM REGISTRAR MUSEUM Gender Identity Male 08/22/2021 1:34 PM CDT [...] this encounter Progress Notes * Maribel Doss, SPEECH PATHOLOGY TEACHER - 09/29/2024 11:45 AM CDT Images from [...] not ill-appearing. HENT: Head: Normocephalic. Mouth/Throat: Lips: [place]. Cardiovascular: Rate and Rhythm: Regular rhythm. Tachycardia [...] office note has been partially dictated using Aw[employer] software, and as a result portions of the record may have been created with this software. Occasional wrong-word or '[id number]' substitutions may have occurred due to the [...] documented as of this encounter Care Teams Tetryl Screen Operator Relationship Specialty Start Date End Date Roland Salmeron MD [address] [place] [address] PCP - General Family Medicine 05/17/21 documented as of this encounter
--- OUTSIDE RECORDS SUMMARY | 2024-09-29 16:42 | XMS_ITS | Clinical Summary ---
Author Organization [facility] [employer] Address [address] [facility] [place] [address] Care Team Providers Care Airline Customer Service Agent Name Role Phone Unavailable Primary Care Provider Unavailabl e Source Comments [facility] [employer],non-owned Affiliates and Associated Physician Practices is amultiple site organization consisting of ambulatory clinics and hospital sitesin [place], [place], [place] and [place]. This disclosure is being madepursuant to the Care Everywhere program and may not contain all information available regarding this patient. 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
--- NOTE | 2024-09-29 17:40 | ECG_ITS ---
Test Date: 2024-09-29 17:13:00 Measurements Intervals Cash Rate: 106 P: 37 MN: 150 QRS: 58 QRSD: 114 T: -72 QT: 336 QTc: 447 Interpretive Statements SINUS TACHYCARDIA INCOMPLETE LEFT BUNDLE BRANCH BLOCK INFERIOR INFARCT, AGE INDETERMINATE ANTEROLATERAL INFARCT, AGE INDETERMINATE BORDERLINE ST-T WAVE ABNORMALITY- HIGH LATERAL LEADS BASELINE ARTIFACT- I, II, AVR ABNORMAL ECG Compared to ECG 09/29/2024 14:28:39 NO SIGNIFICANT CHANGE Electronically Signed On 09-29-2024 19:47:23 CDT by Colin Perdomo D.O.
[2024-09-29 17:59] LABS: Troponin I 1.350 ng/mL (0.000-0.034)
[2024-09-29] MEDS: FUROSEMIDE INJ 40 MG/4 ML VIAL IV PUSH (18:19)
--- NOTE | 2024-09-29 21:21 | ADMGEN ---
This patient, Dillon Alex, was admitted to IMU Room 200-01 at 2108. Patient/family oriented to hospital policies and general routines including ID bracelet, bed and alarms, visiting hours, pain management, procedures, bathroom and other care routines, personal items, smoking policy, room service/diet, and visiting hours. Information on how to activate the Rapid Response Team has been discussed. Patient/Family are encouraged to report perceived risks to care and to ask questions if they do not understand what they are told or what they should do.
--- NOTE | 2024-09-29 23:17 | PM.IMHP ---
H&P: HPI History of Present Illness Date/Time: 09/29/24 23:17 Chief Complaint: Abdominal and leg swelling Narrative: 49-year-old male with a past medical history of insulin-dependent diabetes mellitus, CHF, essential hypertension and prior lap band surgery who presented to the ER from home due to lower extremity edema, abdominal swelling and 30 lb weight gain in the last month. The patient reports that he keeps a close track of his weight since he had the gastric band procedure about 15 years ago. He reports that his weight usually runs around 215-220 lb. Over the last month despite in a changing his diet he has gained 30 lb. He reports that over the last week is subsequently noticed increasing lower extremity swelling. He reports that swelling a goes all the way up into his thighs and reports that his abdomen also feels bloated. He denies any shortness of breath or cough. He reports that he was diagnosed with CHF 11 years ago but he has not followed up with a lute packer or applier in many years. He is not on any diuretics. On review of the old electronic medical record system the patient's echocardiogram at that time demonstrated normal diastolic and systolic function but the patient's right ventricle was not well visualized. The patient does have diabetes that is poorly controlled. He only checks his blood sugar once in the morning. He reports that his glucoses range between 150 into the mid 200s. He does not know what his last A1c was. He denies any diagnosis of diabetic retinopathy neuropathy or nephropathy. However he does admit that he has been having foamy urine for quite some time he also has a distant history of heavy alcohol use but quit drinking alcohol when he became ill in 2013 with the last episode of ?CHF?. He reports that he does not drink at all now. He states that he did develop an area of ulcer infection on his right lower extremity a couple of weeks ago. It sounds like he may have developed the ulcer due to discomfort from his skin being tight and scratching at his legs. He denies any drainage from the area or increased warmth. He was prescribed doxycycline and Bactroban ointment as outpatient and just got them filled before coming to the ER. He had not taken a doses of the antibiotics. He denies any fevers or chills. He denies any nausea or vomiting. He denies known history of cirrhosis or liver disease. CT in the ER demonstrated changes that be consistent with hepatic steatosis. He does report some lower abdominal discomfort that he associates with just generalized so loading. He states that he usually has normally formed bowel movements but over the last few days has been having some harder stools that her ball like in nature. He denies any hematochezia or melena. Patient body habitus and posterior oropharynx leave him at risk for obstructive sleep apnea however he denies any history of snoring or daytime fatigue. Although it does sound like he does fall asleep in his recliner somewhat frequently. Chest x-ray in the ER demonstrated bilateral pleural effusions left greater than right and mild pulmonary vascular congestion. EKG demonstrated ST and T-wave abnormalities high lateral leads, inferior and anterior lateral infarct age indeterminate, incomplete left bundle-branch block with sinus tachycardia. Patient's initial troponin was elevated to 1.1 with repeat troponin profile flat. Patient was prescribed doxycycline and Bactroban ointment today as outpatient. Review of Systems Review of Systems: 12 systems were reviewed with pertinent positives and negatives per HPI. Except as documented in the HPI, all other systems were reviewed and are negative. [facility] Past Medical History Medical History Alcoholism in recovery In recovery since 2013 Essential hypertension Type 2 diabetes mellitus treated with insulin CHF (congestive heart failure) Surgical History Surgical History History of laparoscopic adjustable gastric banding Family History Family History Father Aortic valve replaced Social History Social History (Updated 10/01/24 @ 01:04 by Laila Bragg DO) Social History: He lives in [place]. 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 He has a history of alcoholism in recovery she she she. The the drink heavily for about 10 years but quit drinking alcohol in 2014. Code status: Full code (patient has living will) Surrogate decision maker: Ruben (brother) Smoking status: Never smoker Alcohol intake: former Alcohol use details: Quit 2014 Substance use: never Lack of Transportation: No Lack of Food: Never True Current Housing: I Have Housing Concerned About Future Housing: No Difficulty Paying Gas/Electric Bills: No Difficulty Paying for Meds: No Currently Unemployed: No Education: Associate Degree Difficulty w/ Childcare or Family Care: No Spiritual care concerns: No Meds Home Medications and Allergies Home Medications ?Medication ?Instructions ?Recorded ?Confirmed ?Type doxycycline hyclate 100 mg capsule 100 mg PO Q12H 09/29/24 09/29/24 History insulin glargine 100 unit/mL 80 unit subcut QPM 09/29/24 09/29/24 History subcutaneous solution (Lantus U-100 Insulin) metformin 1,000 mg tablet 1,000 mg PO DAILY 09/29/24 09/29/24 History mupirocin 2 % topical ointment 1 applic topical TID 09/29/24 09/29/24 History Allergies Allergy/AdvReac Type Severity Reaction Status Date / Time No Known Allergies Allergy Verified 09/29/24 12:51 Vital Signs Vital Signs - 24 hr 09/29/24 12:50 09/29/24 15:13 09/29/24 15:15 Temperature 98.4 F Pulse Rate 110 H 114 H 109 H Respiratory Rate 18 15 30 H Blood Pressure 148/102 H Pulse Oximetry 98 Oxygen Delivery Room Air 09/29/24 15:30 09/29/24 15:31 09/29/24 16:54 Temperature Pulse Rate 106 H 106 H 104 H Respiratory Rate 27 H 27 H 27 H Blood Pressure 142/87 H Pulse Oximetry 98 99 100 Oxygen Delivery 09/29/24 17:00 09/29/24 17:01 09/29/24 17:15 Temperature Pulse Rate 103 H 100 107 H Respiratory Rate 30 H 26 H 29 H Blood Pressure 140/95 H 154/98 H Pulse Oximetry 100 Oxygen Delivery 09/29/24 17:16 09/29/24 17:30 09/29/24 17:31 Temperature Pulse Rate 103 H 98 99 Respiratory Rate 33 H 29 H 28 H Blood Pressure 148/98 H Pulse Oximetry 100 100 100 Oxygen Delivery 09/29/24 17:45 09/29/24 17:46 09/29/24 18:00 Temperature Pulse Rate 98 97 101 H Respiratory Rate 26 H 24 H 21 H Blood Pressure 141/97 H 141/97 H Pulse Oximetry 100 100 98 Oxygen Delivery 09/29/24 18:01 09/29/24 18:18 09/29/24 18:59 Temperature Pulse Rate 101 H 97 96 Respiratory Rate 26 H 21 H 17 Blood Pressure Pulse Oximetry 100 99 98 Oxygen Delivery 09/29/24 19:00 09/29/24 19:35 09/29/24 19:46 Temperature Pulse Rate 96 Respiratory Rate 20 Blood Pressure Pulse Oximetry 98 100 98 Oxygen Delivery 09/29/24 20:09 09/29/24 20:15 09/29/24 20:16 Temperature Pulse Rate 98 97 94 Respiratory Rate 23 H 21 H 22 H Blood Pressure 131/88 Pulse Oximetry 97 100 100 Oxygen Delivery 09/29/24 20:32 09/29/24 20:45 09/29/24 20:47 Temperature Pulse Rate Respiratory Rate Blood Pressure 121/81 Pulse Oximetry 96 94 95 Oxygen Delivery 09/29/24 21:25 Temperature 98.1 F Pulse Rate 102 H Respiratory Rate 19 Blood Pressure 157/98 H Pulse Oximetry 99 Oxygen Delivery Exam Narrative: Weight 109.3 kg BMI 35.6 Const: Other: Obese, no acute distress HENMT: Other: Mucous membranes are moist, no oral pharyngeal erythema, crowded posterior oropharynx Eyes: Other: Pupils are equal and reactive, no scleral icterus, no conjunctival pallor Neck: Other: Large neck circumference, no lymphadenopathy, no JVD Resp: Other: Clear to auscultation bilaterally, no increased work of breathing Cardio: Other: Regular rate, regular rhythm, 2+ bilateral radial pedal pulses, no JVD GI: Other: Distended, non tender, normoactive bowel sounds Skin: Other: The irregularly shaped ulcer of the knee right lateral cummins with no surrounding erythema or evidence of infection, no drainage,, patient also has a smaller area of irritation the medial right ankle and the ER shallow ulceration on the is lateral or the left as well, he has a hematoma to the tip of the right great toe Neuro: Other: Alert oriented x4, speech is clear, no facial asymmetry, no localizing neurologic deficits noted during the course of casual conversation Extrem: Other: 2+ pitting edema of lower extremities up to the calf, no clubbing, no cyanosis, moves all extremities equally, ulcers as discussed above Psych: Other: Unusual affect but overall all generally pleasant and cooperative, intact judgment and insight H&P: Results Labs Labs: Laboratory Tests 09/29/24 14:41 09/29/24 14:41 09/29/24 09/29/24 09/29/24 14:41 16:09 17:30 WBC 8.1 RBC 4.81 Hgb 13.5 L Hct 41.2 L MCV 85.7 MCH 28.1 MCHC 32.8 RDW 14.3 Plt Count 392 H MPV 9.9 Immature Gran % (Auto) 0.4 Neut % (Auto) 63.1 Lymph % (Auto) 26.9 [place] % (Auto) 8.0 Eos % (Auto) 0.9 Baso % (Auto) 0.7 Lymph # (Auto) 2.19 [place] # (Auto) 0.7 H Eos # (Auto) 0.1 Baso # (Auto) 0.1 Abs Immat Gran (auto) 0.03 Absolute Neuts (auto) 5.1 Absolute Nucleated RBC 0.000 Nucleated RBC % 0.0 PT 14.8 H INR 1.2 APTT 25.2 Sodium 134 L Potassium 4.2 Chloride 102 Carbon Dioxide 27 Anion Gap 5 BUN 17 Creatinine 0.78 Estim Creat Clear Calc 127 Estimated GFR > 60 Glucose 269 H Calcium 9.0 Total Bilirubin 0.7 AST 46 ALT 83 H Alkaline Phosphatase 112 Troponin I 1.350 H* 1.350 H* NT-Pro-B Natriuret Pep 5660 H Total Protein 6.9 Albumin 3.3 L Lipase 40 Urine Color Yellow Urine Appearance Cloudy H Urine pH 7.5 Ur Specific [place] 1.012 Urine Protein 2+ H Urine Glucose (UA) 3+ H Urine Ketones Negative Ur Blood (Man) Trace Urine Nitrate Negative Urine Bilirubin Negative Urine Urobilinogen 0.2 Leukocyte Esterase Rfl 2+ H Urine RBC 0-2 Urine WBC 11-20 H Ur Squamous Epith Cells Occasional Urine Bacteria Rare Urine Casts 0-2 Impressions Chest X-Ray 09/29/24 15:20 IMPRESSION: Bilateral pleural effusions, left greater than right. Mild pulmonary vascular congestion. Abdomen/Pelvis CT 09/29/24 16:27 IMPRESSION: 1. Segment focal thickening of the green of the mid transverse colon. Differential includes incomplete bowel wall distention, focal colitis or mass. Direct visualization is recommended. 2. Small amount of nonspecific fluid and fat saturated scattered throughout the abdomen and pelvis. 3. Small bilateral pleural effusions. 4. Small consolidations in the lower lobes likely compressive atelectasis. 5. Small patchy opacities in the lower lungs. 6. Liver is heterogeneous possibly due to patchy focal fatty infiltration or hepatocellular disease. Other etiologies are possible. Consider a liver mass MRI for further assessment. Findings as above. EK EKGs personally reviewed interpreted Cardiology interpretation of most recent EKG below Test Date: 2024-09-29 17:13:00 Measurements Intervals [place] Rate: 106 P: 37 NM: 150 QRS: 58 QRSD: 114 T: -72 QT: 336 QTc: 447 Interpretive Statements SINUS TACHYCARDIA INCOMPLETE LEFT BUNDLE BRANCH BLOCK INFERIOR INFARCT, AGE INDETERMINATE ANTEROLATERAL INFARCT, AGE INDETERMINATE BORDERLINE ST-T WAVE ABNORMALITY- HIGH LATERAL LEADS BASELINE ARTIFACT- I, II, AVR ABNORMAL ECG Compared to ECG 09/29/2024 14:28:39 NO SIGNIFICANT CHANGE All imaging and EKGs personally reviewed and interpreted. And unless stated otherwise agree with radiologic and cardiology interpretation. Assessment and Plan Assessment and plan (1) Elevated troponin: Code(s): R79.89 - Other specified abnormal findings of blood chemistry Status: Acute (2) CHF (congestive heart failure): Qualifiers: Heart failure chronicity: acute on chronic Heart failure type: unspecified Qualified Code(s): I50.9 - Heart failure, unspecified Code(s): I50.9 - Heart failure, unspecified Status: Acute (3) Acute electrocardiogram changes: Code(s): R94.31 - Abnormal electrocardiogram [ECG] [EKG] Status: Acute (4) Type 2 diabetes mellitus with hyperglycemia, with long-term current use of insulin: Code(s): E11.65 - Type 2 diabetes mellitus with hyperglycemia; 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 Status: Acute (5) Proteinuria: Qualifiers: Proteinuria type: unspecified Qualified Code(s): R80.9 - Proteinuria, unspecified Code(s): R80.9 - Proteinuria, unspecified Status: Acute (6) Hepatic steatosis: Code(s): K76.0 - Fatty (change of) liver, not elsewhere classified Status: Acute (7) Ulcer of right lower extremity: Qualifiers: Non-pressure ulcer stage: unspecified non-pressure ulcer stage Qualified Code(s): L97.919 - 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 lower leg with unspecified severity Code(s): L97.919 - 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 lower leg with unspecified severity Status: Acute Plan Patient presents with significant weight gain and pleural effusions with clinical picture consistent with CHF exacerbation. Patient not on diuretics at home or on any antihypertensives. Patient's blood pressures were ranging in the 130s to 150s range systolic. Patient did receive 40 of IV Lasix in the ER. Will continue Lasix 40 mg IV daily. Will monitor strict I&O's and daily weights. Will obtain echocardiogram to further evaluate patient's baseline cardiac structure and function. Will change patient's diet to consistent carbohydrate fluid restricted to 1.5 L. will check BMP and magnesium level with a.m. labs. The patient's EKG was abnormal but changes appear to be chronic and patient's troponin was also elevated but with flat troponin profile. Patient is not having current chest pain. Troponin elevation likely due to patient's CHF exacerbation. He likely does have some underlying coronary artery disease in would benefit from further evaluation by Cardiology as outpatient. The patient would benefit from beta-divina and if systolic function is low he would also benefit from addition of Entresto. The patient is edema could also be multifactorial due to proteinuria. Proteinuria likely due to diabetes. Patient may also have some component of synthetic dysfunction of his liver given his distant history of alcohol abuse. All of which may be playing component in the patient's lower extremity and abdominal edema. Patient does have type 2 diabetes mellitus treated as type 1 with insulin therapy with hyperglycemia. Will obtain A1c to evaluate patient's baseline glycemic control bilious significantly elevated currently with glucoses in the 200s. Will add high-dose sliding scale insulin and Accu-Cheks a.c. HS as well as hypoglycemia protocol as needed. Will discontinue patient's metformin. Given his heart failure he would benefit from the addition of Jardiance. Patient also has evidence of proteinuria he likely has at least some component of diabetic nephropathy. And again would benefit from initiation of CHRISTINE-inhibitor for kidney protective indications. Patient does have a ulceration of the right lower extremity. The patient denies any fevers or chills and does not have a white count. The ulcer is by the patient's report of being relatively new seems to be more chronic and edges seem consistent with some portion of granulation tissue in appearance to me. There is no surrounding erythema or drainage to suggest acute infection. Will hold off on antibiotic therapy at this time. Will consult Wound Care. The importance of glycemic control was discussed with the patient in great detail MEDICAL DECISION MAKING NARRATIVE -Spoke with the ED provider in detail regarding patient's evaluation, workup and management -Patient seen and examined at bedside -Collaborated with patient's nurse at the bedside in detail and addressed all concerns -Labs, electrolytes, radiology, investigations and test results reviewed -ED/Consult/Nursing/Ancilliary notes on the chart reviewed and appreciated -Spoke with patient and all questions answered. Patient is in agreement with plan. Quality VTE Prophylaxis VTE prophylaxis: pharmacologic ordered (Lovenox 40 mg subQ daily.) Hospitalist [facility] Advance Care Plan I have confirmed that the patient's Advanced Care Plan is present, code status is documented, or surrogate decision maker is listed in patient medical record.: Yes Medication Reconciliation I have utilized all available resources to obtain, update and review the patients current medications (includes all prescriptions, OTC, herbals, cannabis, and nutritional supplements).: Yes
[2024-09-30] VITALS (17 sets, daily range): BP systolic 109–146; BP diastolic 66–95; PULSE 85–98; RESP 14–20; TEMP 36.4–36.9; O2SAT 95–100; BMI 35.1
--- NOTE | 2024-09-30 | ECHO_ITS ---
Patient Info Name: Dillon Alex Age: 49 years : 1975 Gender: Male Ht: 69 in Wt: 240 lbs BSA: 2.34 m2 HR: 85 bpm BP: 131 / 86 mmHg Heart Rhythm: Sinus Rhythm Technical Quality: Fair Exam Date: 09/30/2024 7:33 AM Patient Status: I Admit Date: 09/29/2024 Exam Type: CA echo dop color flow w con Complete two-dimensional, color flow and Doppler transthoracic echocardiogram is performed with contrast to opacify the left ventricle and to improve the deliniation of the left ventricle endocardial borders. Staff Referring Physician: Brian Sifuentes Nuclear Medicine Specialist: Micaela Sandhu Attending Provider: Ivan Parker Contrast/Agitated Saline Contrast/Ag. Saline: Definity Amount: 3.00 ml Administered By: Micaela Sandhu Existing IV Access: Yes IV Access Condition: patent with no signs of infiltration Summary 1. Left ventricular systolic function is mildly reduced, estimated at 40-45. 2. There is mildly increased left ventricular wall thickness. 3. The left ventricular diastolic function is grade II diastolic dysfunction. 4. The mid anteroseptal is akinetic. 5. The apical septum, apical lateral wall, apical inferior wall, apical cap, and mid anterior wall are hypokinetic. 6. There is mild mitral valve regurgitation. 7. There is mild tricuspid valve regurgitation. 8. No pulmonary hypertension, estimated pulmonary arterial systolic pressure is 24 mmHg. 9. Pleural effusion. Left Ventricle Left ventricular chamber dimension is normal. Left ventricular systolic function is mildly reduced, estimated at 40-45. There is mildly increased left ventricular wall thickness. Left ventricular septal wall motion is normal. The left ventricular diastolic function is grade II diastolic dysfunction. The mid anteroseptal is akinetic. The apical septum, apical lateral wall, apical inferior wall, apical cap, and mid anterior wall are hypokinetic. Right Ventricle Right ventricular chamber dimension is normal. Right ventricular systolic function is normal. Left Atria Left atrial chamber dimension is normal. Right Atria Right atrial chamber dimension is normal. Aortic Valve The aortic valve is trileaflet. There is no aortic valve sclerosis. There is no aortic valve stenosis. There is no aortic valve regurgitation. Pulmonic Valve The pulmonic valve is normal. There is no pulmonic valve stenosis. There is no pulmonic regurgitation. Mitral Valve The mitral valve has normal leaflets. There is no mitral valve stenosis. There is mild mitral valve regurgitation. Tricuspid Valve The tricuspid valve leaflets are normal. There is no significant tricuspid valve stenosis. There is mild tricuspid valve regurgitation. No pulmonary hypertension, estimated pulmonary arterial systolic pressure is 24 mmHg. Pericardium/Pleural The pericardium appears normal. There is no pericardial effusion. Inferior Vena Cava Normal inferior vena cava with >50% collapse upon inspiration consistent with normal right atrial pressure, 5 mmHg. Aorta The aortic root size at the sinus of Valsalva is normal. The prox ascending aorta size is normal. Left Ventricular Outflow Tract Name Value Normal LVOT 2D LVOT Diameter 2.0 cm LVOT Doppler LVOT Peak Velocity 93 cm/s LVOT Peak Gradient 3 mmHg LVOT Mean Gradient 2 mmHg LVOT VTI 14 cm LVOT VTI/AV VTI Ratio 0.7 LVOT Stroke Volume 46 ml LVOT CO 4.0 l/min LVOT CI 1.7 l/min/m2 Pulmonic Valve Name Value Normal RVOT Doppler RVOT Peak Velocity 69 cm/s RVOT Peak Gradient 2 mmHg PV Doppler PV Peak Velocity 88 cm/s PV Peak Gradient 3 mmHg Mitral Valve Name Value Normal MV Diastolic Function MV E Peak Velocity 93 cm/s MV A Peak Velocity 53 cm/s MV E/A 1.7 MV Decel Time (PW) 87 ms MV Annular TDI MV E/e' (Septal) 17.6 MV E/e' (Lateral) 9.0 MV E/e' (Average) 13.3 Tricuspid Valve Name Value Normal TV Regurgitation Doppler TR Peak Velocity 219 cm/s TR Peak Gradient 19 mmHg Estimated PAP/RSVP RA Pressure 5 mmHg <=5 PA Systolic Pressure 24 mmHg <36 RV Systolic Pressure 24 mmHg <36 TV Annular TDI TV Lateral Amisha s' Velocity 11.5 cm/s >=9.5 Aorta Name Value Normal Ascending Aorta Ao Root Diameter (MM) 3.3 cm Ao Root Diam Index (MM) 1.4 cm/m2 Aortic Valve Name Value Normal AV Doppler AV Peak Velocity 119 cm/s AV Peak Gradient 6 mmHg AV Mean Gradient 3 mmHg AV VTI 19 cm AV Area (Cont Eq VTI) 2.4 cm2 >=3.0 AV Area (Cont Eq Erasto) 2.5 cm2 AV DI (Erasto) 0.79 AV Regurgitation 2D LVOT Area 3.2 cm2 Ventricles Name Value Normal LV Dimensions 2D/MM IVS Diastolic Thickness (2D) 1.0 cm 0.6-1.0 LVID Diastole (2D) 5.3 cm 4.2-5.8 LVIW Diastolic Thickness (2D) 0.7 cm 0.6-1.0 LVID Systole (2D) 4.3 cm 2.5-4.0 LVOT Diameter 2.0 cm LV Mass (2D Cubed) 170.90 g 88.00-224.00 LV Mass Index (2D Cubed) 73 g/m2 49-115 Relative Wall Thickness (2D) 0.27 <=0.42 LV Fractional Shortening/Ejection Fraction 2D/MM LV Fractional Shortening (2D) 20 % 25-43 LV EF (2D Teichholz) 41 % LV Diastolic Volume (4C MOD) 152 ml LV EF (4C MOD) 40 % LV Diastolic Volume (2C MOD) 150 ml LV EF (2C MOD) 37 % LV Diastolic Volume (BP MOD) 151 ml 62-150 LV Diastolic Volume Index (BP MOD) 64 ml/m2 34-74 LV Systolic Volume (BP MOD) 93 ml 21-61 LV Systolic Volume Index (BP MOD) 40 ml/m2 11-31 LV EF (BP MOD) 38 % 52-72 LV Diastolic Length (4C) 9.7 cm LV Systolic Length (4C) 9.1 cm LV Stroke Volume (4C MOD) 60 ml Atria Name Value Normal LA Dimensions LA Dimension (MM) 5.0 cm 3.0-4.0 LA Volume (4C A-L) 52 ml LA Volume (BP A-L) 58 ml RA Dimensions RA Area (4C) 16.0 cm2 <=18.0 Wall Motion Scoring Report Signatures
[2024-09-30] MEDS: INSULIN GLARGINE (*BKC) 100 UNITS/ML 80 UNITS SUB-Q ×2 (00:13→17:19)
[2024-09-30 05:23] LABS: Hematocrit 41.6 % (42.0-52.0); Hemoglobin 13.4 g/dL (14.0-18.0); Mean Corpuscular HGB Conc 32.2 g/dl (32-36); Mean Corpuscular Hemoglobin 27.9 pg (26-34); Mean Corpuscular Volume 86.7 fl (80-100); Platelet Count Result 385 k/mm3 (150-375); Red Blood Count 4.80 M/mm3 (4.6-6.20); White Blood Count 7.2 K/mm3 (4.5-10.0)
[2024-09-30 05:49] LABS: Hemoglobin A1C 12.4 % (<5.7)
[2024-09-30 05:53] LABS: Thyroid Stimulating Hormone Reflex 2.570 uIU/mL (0.465-4.68)
[2024-09-30 05:55] LABS: Anion Gap 5 mmol/L (4-12); Blood Urea Nitrogen 12 mg/dL (9-20); Calcium 8.9 mg/dL (8.4-10.2); Carbon Dioxide 28 mmol/L (22-30); Chloride 103 mmol/L (98-107); Estimated CRCL calculation 142 ml/min; Estimated Glomerular Filt Rate > 60; Glucose 174 mg/dL (65-110); Magnesium 1.7 mg/dL (1.6-2.3); Potassium 3.4 mmol/L (3.4-5.0); Sodium 136 mmol/L (137-145)
[2024-09-30 06:44] LABS: Cholesterol 164 mg/dL (0-200); HDL Direct 37 mg/dL; Triglycerides 108 mg/dL (<150)
[2024-09-30] MEDS: PERFLUTREN LIPID MICROSPHERES 1.5 ML VIAL DILUTED TO 10 ML TOTAL VOLUME IV PUSH (07:36)
--- NOTE | 2024-09-30 08:44 | P.CONCA_ITS ---
<Statement entered by Moses Chua MD - 10/03/24 10:45> The service was provided by the the nurse practitioner independently. i was available in the hospital in case I was needed Assessment and Plan Assessment and plan (1) CHF (congestive heart failure): Qualifiers: Heart failure chronicity: acute on chronic Heart failure type: u nspecified Qualified Code(s): I50.9 - Heart failure, unspecified Code(s): I50.9 - Heart failure, unspecified Status: Acute Assessment and Plan: Evidence of CHF with significant bilateral lower extremity edema, pulmonary edema and pleural effusions on CXR, and NT-ProBNP 5660. * Increase furosemide to 40mg IV b.i.d. * Echo is ordered and pending * Strict I&O * daily weights (2) Elevated troponin: Code(s): R79.89 - Other specified abnormal findings of blood chemistry Status: Acute Assessment and Plan: Troponin 1.350, 1.350, 1.090. He does not have chest pain and troponin trend not consistent with ACS. Cannot rule out underlying coronary artery disease. Will await results of echocardiogram - if he has LV dyscuntion or wall motion abnormalities will plan for LHC prior to discharge. Otherwise, ischemic evaluation can be pursued as outpatient. 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 Appreciate GI recommendations. (5) Type 2 diabetes mellitus with hyperglycemia, with long-term current use of insulin: Code(s): E11.65 - Type 2 diabetes mellitus with hyperglycemia; Z79.4 - jail (current) use of insulin Status: Acute Assessment and Plan: Uncontrolled Hgb A1c 12.4. Management per hospitalist History of Present Illness History of Present Illness Consult date/time: 09/30/24 08:44 Requesting physician: Laila Bragg, DO Consult reason: Other (elevated trops) Reason For Visit: NSTEMI, CHF Narrative: Dillon Alex is a 49-year-old male with type 2 diabetes mellitus, hypertension, history of congestive heart failure. This is a patient who comes to the hospital with a chief complaint 30 lb weight gain and bilateral lower extremity swelling. Cardiology is consulted because of elevated troponin levels. Patient reports rapid accumulation fluid in bilateral lower extremities over the past 4 days. He has also gained about 30 lb in 1 month. He does report a history of congestive heart failure exacerbation about 11 years ago but he does not remember if an echocardiogram was performed at that time. He has not had any problems with CHF sent. He denies any chest pain, palpitations, syncope, or presyncope. 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 He is resting comfortably in bed at the time of my visit and has no active complaints. Review of Systems 2 Review of Systems: All systems reviewed & are unremarkable except as noted in HPI and below PMFSH Past Medical History Medical History Alcoholism in recovery In recovery since 2013 Essential hypertension Type 2 diabetes mellitus treated with insulin CHF (congestive heart failure) Surgical History Surgical History History of laparoscopic adjustable gastric banding Family History Family History Father Aortic valve replaced Social History Social History Social History: He lives in [place]. 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 Code status: Full code (patient has living will) Surrogate decision maker: Smoking status: Never smoker Alcohol intake: former Substance use: never Lack of Transportation: No Lack of Food: Never True Current Housing: I Have Housing Concerned About Future Housing: No Difficulty Paying Gas/Electric Bills: No Difficulty Paying for Meds: No Currently Unemployed: No Education: Associate Degree Difficulty w/ Childcare or Family Care: No Spiritual care concerns: No Meds Home Medications and Allergies Home Medications ?Medication ?Instructions ?Recorded ?Confirmed ?Type doxycycline hyclate 100 mg capsule 100 mg PO Q12H 09/1209/29/24 History insulin glargine 100 unit/mL 80 unit subcut QPM 09/29/24 History subcutaneous solution (Lantus U-100 Insulin) metformin 1,000 mg tablet 1,000 mg PO DAILY 09/29/24 0 09/29/24 History mupirocin 2 % topical ointment 1 applic topical TID 09/29/24 History Allergies Allergy/AdvReac Type Severity Reaction Status Date / Time No Known Allergies Allergy Verified 09/29/24 12:51 Vital Signs Vital Signs - 24 hr 09/29/24 12:50 09/29/24 15:13 09/29/24 15:15 Temperature 36.9 C Pulse Rate 110 H 114 H 109 H Respiratory Rate 18 15 30 H Blood Pressure 148/102 H Pulse Oximetry 98 Oxygen Delivery Room Air 09/29/24 15:30 09/29/24 15:31 09/29/24 16:54 Temperature Pulse Rate 106 H 106 H 104 H Respiratory Rate 27 H 27 H 27 H Blood Pressure 142/87 H Pulse Oximetry 98 99 100 Oxygen Delivery 09/29/24 17:00 09/29/24 17:01 09/29/24 17:15 Temperature Pulse Rate 103 H 100 107 H Respiratory Rate 30 H 26 H 29 H Blood Pressure 140/95 H 154/98 H Pulse Oximetry 100 Oxygen Delivery 09/29/24 17:16 09/29/24 17:30 09/29/24 17:31 Temperature Pulse Rate 103 H 98 99 Respiratory Rate 33 H 29 H 28 H Blood Pressure 148/98 H Pulse Oximetry 100 100 100 Oxygen Delivery 09/29/24 17:45 09/29/24 17:46 09/29/24 18:00 Temperature Pulse Rate 98 97 101 H Respiratory Rate 26 H 24 H 21 H Blood Pressure 141/97 H 141/97 H Pulse Oximetry 100 100 98 Oxygen Delivery 09/29/24 18:01 09/29/24 18:18 09/29/24 18:59 Temperature Pulse Rate 101 H 97 96 Respiratory Rate 26 H 21 H 17 Blood Pressure Pulse Oximetry 100 99 98 Oxygen Delivery 09/29/24 19:00 09/29/24 19:35 09/29/24 19:46 Temperature Pulse Rate 96 Respiratory Rate 20 Blood Pressure Pulse Oximetry 98 100 98 Oxygen Delivery 09/29/24 20:09 09/29/24 20:15 09/29/24 20:16 Temperature Pulse Rate 98 97 94 Respiratory Rate 23 H 21 H 22 H Blood Pressure 131/88 Pulse Oximetry 97 100 100 Oxygen Delivery 09/29/24 20:32 09/29/24 20:45 09/29/24 20:47 Temperature Pulse Rate Respiratory Rate Blood Pressure 121/81 Pulse Oximetry 96 94 95 Oxygen Delivery 09/29/24 21:25 09/29/24 22:00 09/29/24 23:31 Temperature 36.7 C Pulse Rate 102 H 101 H Respiratory Rate 19 Blood Pressure 157/98 H Pulse Oximetry 99 Oxygen Delivery Room Air 09/30/24 00:00 09/30/24 00:00 09/30/24 00:00 Temperature 36.9 C Pulse Rate 93 97 Respiratory Rate 18 Blood Pressure 146/95 H Pulse Oximetry 100 Oxygen Delivery Room Air 09/30/24 02:00 09/30/24 04:00 09/30/24 04:00 Temperature Pulse Rate 89 89 Respiratory Rate Blood Pressure Pulse Oximetry Oxygen Delivery Room Air 09/30/24 04:00 09/30/24 06:00 09/30/24 07:15 Temperature 36.4 C 36.6 C Pulse Rate 94 85 90 Respiratory Rate 18 14 Blood Pressure 131/86 111/66 Pulse Oximetry 100 98 Oxygen Delivery Exam 2 Const: General: comfortable, no acute distress, alert and awake O rientation/consciousness: patient oriented x3 HENMT: Head: normal to inspection Eyes: General: appearance normal, both eyes and all related structures P upils: Equal, round and reactive pupils present Neck: Neck: normal visual inspection, supple and no JVD Carotids: normal carotid upstroke Resp: Effort & Inspection: normal respiratory effort Auscultation: crackles and diminished lung sounds Cardio: Rate: regular rate Rhythm: regular rhythm Heart sounds: S1 normal heart sound present, S2 normal heart sound present and no murmurs GI: Auscultation: normal bowel sounds Skin: General skin exam: normal color Wounds: wounds noted Neuro: General: patient oriented x3 Cranial nerves: Yes Equal, round and reactive pupils present Extrem: General: normal to inspection, edema and pedal edema Psych: Appearance: grossly normal Mental Status: mental status grossly normal Results Labs and Meds 09/30/24 03:42 09/30/24 03:42 Lab results: Cardiac Enzymes 09/29/24 09/29/24 Range/Units 14:41 17:30 AST 46 (17-59) U/L Troponin I 1.350 H* 1.350 H* (0.000-0.034) ng/mL Coagulation 09/29/24 Range/Units 14:41 PT 14.8 H (11.1-14.7) Seconds APTT 25.2 (22.3-36.8) Seconds Lipids 09/30/24 Range/Units 03:39 Triglycerides 108 (<150) mg/dL Cholesterol 164 (0-200) mg/dL CBC 09/29/24 09/30/24 Range/Units 14:41 03:42 WBC 8.1 7.2 (4.5-10.0) K/mm3 RBC 4.81 4.80 (4.6-6.20) M/mm3 Hgb 13.5 L 13.4 L (14.0-18.0) g/dL Hct 41.2 L 41.6 L (42.0-52.0) % Plt Count 392 H 385 H (150-375) k/mm3 Lymph # (Auto) 2.19 (0.9-3.2) K/mm3 Harvey # (Auto) 0.7 H (0.1-0.6) K/mm3 Eos # (Auto) 0.1 (0-0.3) K/mm3 Baso # (Auto) 0.1 (0.0-0.1) K/mm3 Comprehensive Metabolic Panel 09/29/24 09/30/24 Range/Units 14:41 03:42 Sodium 134 L 136 L (137-145) mmol/L Potassium 4.2 3.4 (3.4-5.0) mmol/L Chloride 102 103 (98-107) mmol/L Carbon Dioxide 27 28 (22-30) mmol/L BUN 17 12 D (9-20) mg/dL Creatinine 0.78 0.67 L (0.7-1.3) mg/dL Glucose 269 H 174 H (65-110) mg/dL Calcium 9.0 8.9 (8.4-10.2) mg/dL AST 46 (17-59) U/L ALT 83 H (6-50) U/L Alkaline Phosphatase 112 (38-126) U/L Total Protein 6.9 (6.3-8.2) g/dL Albumin 3.3 L (3.5-5.1) g/dL Intake and Output 09/29/24 09/30/24 09/30/24 23:59 07:59 15:59 Intake Total 100 Balance 100 Intake: Oral 100 Other: # Unmeasured Voids 4 Patient Weight 09/30/24 23:59 Weight 107.8 kg
--- NOTE | 2024-09-30 09:19 | IVDEFINITY ---
Prior to administration of IV Definity the patient was educated on the risks and benefits of the imaging enhancing agent including potential adverse side effects. The patient verbalized understanding. Allergies were verified. No exclusion criteria were identified and at least one of the following inclusion criteria were met: 1) physician request, 2) patient technically difficult to image (per the [place] [employer] guidelines of two or more segments not discernable within the apical view), or 3) questionable left ventricular function. ?
[2024-09-30] MEDS: FUROSEMIDE INJ 40 MG/4 ML VIAL IV PUSH ×2 (09:57→16:30)
[2024-09-30 10:25] LABS: Troponin I 1.090 ng/mL (0.000-0.034)
--- NOTE | 2024-09-30 10:47 | WPDGICN ---
Assessment and Plan Assessment and plan (1) Lower abdominal pain: Code(s): R10.30 - Lower abdominal pain, unspecified Status: Acute (2) Constipation: Code(s): K59.00 - Constipation, unspecified Status: Acute (3) Colitis: Code(s): K52.9 - Noninfective gastroenteritis and colitis, unspecified Status: Acute (4) Hepatic steatosis: Code(s): K76.0 - Fatty (change of) liver, not elsewhere classified Status: Acute (5) Elevated ALT measurement: Code(s): R74.01 - Elevation of levels of liver transaminase levels Status: Acute (6) CHF (congestive heart failure): Code(s): I50.9 - Heart failure, unspecified Status: Acute (7) Type 2 diabetes mellitus with hyperglycemia, with long-term current use of insulin: Code(s): E11.65 - Type 2 diabetes mellitus with hyperglycemia; Z79.4 - technician terminal and repeater (current) use of insulin Status: Acute Plan 1. Lower abdominal pain/colitis: Patient has never had a colonoscopy. Family Hx negative for CRC or IBD. CT showed segment focal thickening of the green of the mid transverse colon. Differential includes incomplete bowel wall distention, focal colitis or mass. Small amount of nonspecific fluid and fat saturated scattered throughout the abdomen and pelvis. Patient states that prior to his admission he was having lower abdominal discomfort but denies pain. Patient states that he normally has daily BM's but around the same time he started having lower leg swelling he also started having constipation. Patient was having daily BM's but states that they were small and incomplete and required straining. Patient had been off his diuretics for a few months. Uncontrolled CHF and poorly controlled diabetes likely contributing to clinical presentation. A1c on admission 12.4, BNP 5660. patient advised to follow up with me outpatient at which time we can address his constipation if it is still occurring once his CHF and diabetes are addressed this hospitalization and to also schedule a colonoscopy once more stable Start Miralax BID while hospitalized and decrease to once daily if diarrhea occurs no need to emergent endoscopic evvaluation at this time 2. Hepatic steatosis/elevated ALT: CT showed liver is heterogeneous possibly due to patchy focal fatty infiltration or hepatocellular disease. Other etiologies are possible. Consider a liver mass MRI for further assessment. LFT's normal except elevated ALT at 83. Hx of ETOH abuse be denies alcohol use since 2013. Will discuss scheduling repeat imaging outpatient elevated ALT may be secondary to fatty liver as the patient has multiple risk factors 3. CHF/elevated troponin/elevated BNP: Patient with BNP 5660 and positive troponin x 3 primary care team and cardiology following Thank you very much for allowing me to share in the care of this very nice patient. This report may have been done utilizing a voice recognition system. Attempts have been made to correct errors. However, there may be uncorrected grammatical, spelling, and recognition errors present. GI Consult Note Consult date/time: 09/30/24 10:47 Reason for consult: Abnormal CT digestive HPI: Dillon Alex is a 49 year old male with PMSH of insulin depend diabetes, CHF, HTN, lap band and Hx of ETOH abuse in recovery since 2013. He presented to the ER yesterday with complaints of lower extremity swelling. Patient with known Hx of CHF and had not been taking his diuretics. GI has been consulted to abnormal CT digestive. Patient was accompanied by his mother Nimo throughout the entire visit. Patient states that he had not been taking his diuretics for a few months prior to admission and had gained around 30 lb. He was having significant lower extremity edema and wounds as well as abdominal distention over the past few weeks. Around the same time that he started gaining weight in noticing leg swelling he started having constipation. He states that he was having daily bowel movements but states that they were small, hard and incomplete. He has not had a bowel movement over the past 2 days. He has tried no [id number] medications for his constipation but states that he is still passing gas regularly. He complains of generalized abdominal discomfort but denies pain. He denies nausea, vomiting, odynophagia, dysphagia, reflux, regurgitation, early satiety, appetite or weight loss. He denies any diarrhea, hematochezia, or melena. He is a recovering alcoholic and has not had any alcohol consumption since 2013. He denies any tobacco or marijuana use. Family history negative for CRC or IBD. He denies any NSAID, aspirin, or anticoagulant use. ENDOSCOPY HISTORY: Patient has never had an EGD or colonoscopy LABS AND STOOL STUDIES: Labs 09/30/2024: Sodium 136, potassium 3.4, BUN 12, creatinine 0.67, GFR >60, calcium 8.9 WBC 7, Hgb 13, Hct 42, MCV 87, platelets 385, INR 1.2 Total bilirubin 0.7, AST 46, ALT 83, Alkaline Phos 112, albumin 3.3 Troponins positive x3, BNP 5660, triglyceride 108, lipase 40 TSH 2.570, magnesium 1.7 and hemoglobin A1c 12.4 IMAGING: CT abd/pelvis w/contrast 09/29/2024: IMPRESSION: 1. Segment focal thickening of the green of the mid transverse colon. Differential includes incomplete bowel wall distention, focal colitis or mass. Direct visualization is recommended. 2. Small amount of nonspecific fluid and fat saturated scattered throughout the abdomen and pelvis. 3. Small bilateral pleural effusions. 4. Small consolidations in the lower lobes likely compressive atelectasis. 5. Small patchy opacities in the lower lungs. 6. Liver is heterogeneous possibly due to patchy focal fatty infiltration or hepatocellular disease. Other etiologies are possible. Consider a liver mass MRI for further assessment. Chest Xray 09/29/2024: IMPRESSION: Bilateral pleural effusions, left greater than right. Mild pulmonary vascular congestion. Review of Systems Constitutional: Constitutional: Reports as per HPI ENT: Reports as per HPI Cardiovascular: Cardiovascular: Reports as per HPI, Denies chest pain, Reports pedal edema, Reports leg edema and Reports dyspnea (with activity) Respiratory: Respiratory: Denies cough and Reports dyspnea Gastrointestinal: Gastrointestinal: Reports as per HPI Musculoskeletal: Musculoskeletal: Reports as per HPI Integumentary/Breasts: Skin/Breast: Reports wounds Comments: wounds to lower legs and right big toe Psychiatric: Psychiatric: Reports as per HPI Endocrine: Endocrine: Reports no additional endocrine complaints Hematologic/Lymphatic: Hematologic/Lymphatic: Reports no additional hematologic/lymphatic complaints [facility] Past Medical History Medical History (Updated 09/30/24 @ 12:35 by Marisela Sibley APRN) Alcoholism in recovery In recovery since 2013 Essential hypertension Type 2 diabetes mellitus treated with insulin CHF (congestive heart failure) Surgical History Surgical History (Updated 09/29/24 @ 23:27 by Laila Bragg DO) History of laparoscopic adjustable gastric banding Family History Family History (Updated 09/29/24 @ 21:24 by Nenita Solano RN) Father Aortic valve replaced Social History Social History (Updated 09/29/24 @ 23:31 by Laila Bragg DO) Social History: He lives in [place]. 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 Code status: Full code (patient has living will) Surrogate decision maker: Smoking status: Never smoker Alcohol intake: former Substance use: never Lack of Transportation: No Lack of Food: Never True Current Housing: I Have Housing Concerned About Future Housing: No Difficulty Paying Gas/Electric Bills: No Difficulty Paying for Meds: No Currently Unemployed: No Education: Associate Degree Difficulty w/ Childcare or Family Care: No Spiritual care concerns: No Meds Home Medications and Allergies Home Medications ?Medication ?Instructions ?Recorded ?Confirmed ?Type doxycycline hyclate 100 mg capsule 100 mg PO Q12H 09/29/24 09/29/24 History insulin glargine 100 unit/mL 80 unit subcut QPM 09/29/24 09/29/24 History subcutaneous solution (Lantus U-100 Insulin) metformin 1,000 mg tablet 1,000 mg PO DAILY 09/29/24 09/29/24 History mupirocin 2 % topical ointment 1 applic topical TID 09/29/24 09/29/24 History Allergies Allergy/AdvReac Type Severity Reaction Status Date / Time No Known Allergies Allergy Verified 09/29/24 12:51 Vital Signs Vital Signs - 24 hr 09/29/24 12:50 09/29/24 15:13 09/29/24 15:15 Temperature 98.4 F Pulse Rate 110 H 114 H 109 H Respiratory Rate 18 15 30 H Blood Pressure 148/102 H Pulse Oximetry 98 Oxygen Delivery Room Air 09/29/24 15:30 09/29/24 15:31 09/29/24 16:54 Temperature Pulse Rate 106 H 106 H 104 H Respiratory Rate 27 H 27 H 27 H Blood Pressure 142/87 H Pulse Oximetry 98 99 100 Oxygen Delivery 09/29/24 17:00 09/29/24 17:01 09/29/24 17:15 Temperature Pulse Rate 103 H 100 107 H Respiratory Rate 30 H 26 H 29 H Blood Pressure 140/95 H 154/98 H Pulse Oximetry 100 Oxygen Delivery 09/29/24 17:16 09/29/24 17:30 09/29/24 17:31 Temperature Pulse Rate 103 H 98 99 Respiratory Rate 33 H 29 H 28 H Blood Pressure 148/98 H Pulse Oximetry 100 100 100 Oxygen Delivery 09/29/24 17:45 09/29/24 17:46 09/29/24 18:00 Temperature Pulse Rate 98 97 101 H Respiratory Rate 26 H 24 H 21 H Blood Pressure 141/97 H 141/97 H Pulse Oximetry 100 100 98 Oxygen Delivery 09/29/24 18:01 09/29/24 18:18 09/29/24 18:59 Temperature Pulse Rate 101 H 97 96 Respiratory Rate 26 H 21 H 17 Blood Pressure Pulse Oximetry 100 99 98 Oxygen Delivery 09/29/24 19:00 09/29/24 19:35 09/29/24 19:46 Temperature Pulse Rate 96 Respiratory Rate 20 Blood Pressure Pulse Oximetry 98 100 98 Oxygen Delivery 09/29/24 20:09 09/29/24 20:15 09/29/24 20:16 Temperature Pulse Rate 98 97 94 Respiratory Rate 23 H 21 H 22 H Blood Pressure 131/88 Pulse Oximetry 97 100 100 Oxygen Delivery 09/29/24 20:32 09/29/24 20:45 09/29/24 20:47 Temperature Pulse Rate Respiratory Rate Blood Pressure 121/81 Pulse Oximetry 96 94 95 Oxygen Delivery 09/29/24 21:25 09/29/24 22:00 09/29/24 23:31 Temperature 98.1 F Pulse Rate 102 H 101 H Respiratory Rate 19 Blood Pressure 157/98 H Pulse Oximetry 99 Oxygen Delivery Room Air 09/30/24 00:00 09/30/24 00:00 09/30/24 00:00 Temperature 98.4 F Pulse Rate 93 97 Respiratory Rate 18 Blood Pressure 146/95 H Pulse Oximetry 100 Oxygen Delivery Room Air 09/30/24 02:00 09/30/24 04:00 09/30/24 04:00 Temperature Pulse Rate 89 89 Respiratory Rate Blood Pressure Pulse Oximetry Oxygen Delivery Room Air 09/30/24 04:00 09/30/24 06:00 09/30/24 07:15 Temperature 97.6 F 97.8 F Pulse Rate 94 85 90 Respiratory Rate 18 14 Blood Pressure 131/86 111/66 Pulse Oximetry 100 98 Oxygen Delivery Exam Const: General: cooperative, comfortable, no acute distress and well developed Orientation/consciousness: oriented to person, oriented to place, oriented to time and patient oriented x3 HENMT: Head: normal to inspection, normocephalic and atraumatic Mouth: Yes Normal oral and palatal mucosa present and Yes moist mucous membranes Eyes: General: appearance normal, both eyes and all related structures Conjunctivae: conjunctivae normal Sclera: sclerae normal Pupils: Equal, round and reactive pupils present Neck: Neck: normal visual inspection Chest: Chest palpation & inspection: normal inspection of the chest Resp: Effort & Inspection: normal respiratory effort and able to speak in complete sentences Auscultation: clear to auscultation bilaterally Cardio: Jugular venous distension: no JVD Rate: regular rate Rhythm: regular rhythm Heart sounds: S1 normal heart sound present and S2 normal heart sound present GI: Inspection: distended GI Palp: Yes Soft to palpation, No Tenderness to palpation present (GI), No Guarding due to palpation present (GI) and Yes No hepatosplenomegaly present Auscultation: normal bowel sounds Rectal Exam: deferred Skin: General skin exam: normal color Wounds: wounds noted Other: bilateral lower legs and right big toe Neuro: General: oriented to person, oriented to place, oriented to time and patient oriented x3 Cranial nerves: Yes Equal, round and reactive pupils present Speech: normal speech Extrem: General: normal to inspection and no clubbing, cyanosis or edema Psych: Appearance: grossly normal and well kempt Affect: normal affect Results Labs 09/30/24 03:42 09/30/24 03:42 Labs: Short CBC 09/29/24 09/30/24 Range/Units 14:41 03:42 WBC 8.1 7.2 (4.5-10.0) K/mm3 Hgb 13.5 L 13.4 L (14.0-18.0) g/dL Hct 41.2 L 41.6 L (42.0-52.0) % Plt Count 392 H 385 H (150-375) k/mm3 BMP 09/29/24 09/30/24 14:41 03:42 Sodium 134 L 136 L Potassium 4.2 3.4 Chloride 102 103 Carbon Dioxide 27 28 BUN 17 12 D Creatinine 0.78 0.67 L Glucose 269 H 174 H Calcium 9.0 8.9 Cardiac Enzymes 09/29/24 09/29/24 09/30/24 Range/Units 14:41 17:30 03:42 Troponin I 1.350 H* 1.350 H* 1.090 H* (0.000-0.034) ng/mL Liver Function 09/29/24 Range/Units 14:41 Total Bilirubin 0.7 (0.2-1.3) mg/dL AST 46 (17-59) U/L ALT 83 H (6-50) U/L Alkaline Phosphatase 112 (38-126) U/L Albumin 3.3 L (3.5-5.1) g/dL Urine 09/29/24 Range/Units 16:09 Urine Color Yellow (Yellow) Urine Appearance Cloudy H (Clear) Urine pH 7.5 (5.0-9.0) Ur Specific [place] 1.012 (1.001-1.035) Urine Protein 2+ H (Negative) mg/dL Urine Glucose (UA) 3+ H (Negative) mg/dL
[2024-09-30] MEDS: MAGNESIUM SULF 2 GM/WATER 50ML 2 GM/50 ML BAG IVPB (11:41)
[2024-09-30] MEDS: POTASSIUM CHLORIDE INJ 40 MEQ in SODIUM CHLORIDE 0.9% IV 500 ML 130 MEQ IVPB (11:41)
[2024-09-30] MEDS: EMPAGLIFLOZIN 5 MG TABLET PO (11:58)
[2024-09-30] MEDS: ASPIRIN 81 MG ENTERIC TABLET PO (11:59)
[2024-09-30] MEDS: POTASSIUM CHLORIDE 20 MEQ PACKET (FOR LIQUID) 40 MEQ PO (11:59)
[2024-09-30] MEDS: DOCUSATE SODIUM 100 MG CAPSULE PO (11:59)
[2024-09-30] MEDS: ENOXAPARIN 120 MG/0.8 ML SYRINGE 110 MG SUB-Q (12:01)
[2024-09-30] MEDS: MUPIROCIN 2% OINT 22 GM TUBE 1 APPLIC TOPICAL (16:30)
--- NOTE | 2024-09-30 17:08 | P.PNIM_ITS ---
Progress Note: A&P Assessment and Plan (1) Elevated troponin: Code(s): R79.89 - Other specified abnormal findings of blood chemistry Status: Acute (2) CHF (congestive heart failure): Qualifiers: Heart failure chronicity: acute on chronic Heart failure type: unspecified Qualified Code(s): I50.9 - Heart failure, unspecified Code(s): I50.9 - Heart failure, unspecified Status: Acute (3) Acute electrocardiogram changes: Code(s): R94.31 - Abnormal electrocardiogram [ECG] [EKG] Status: Acute (4) Type 2 diabetes mellitus with hyperglycemia, with long-term current use of insulin: Code(s): E11.65 - Type 2 diabetes mellitus with hyperglycemia; Z79.4 - assisted (current) use of insulin Status: Acute (5) Proteinuria: Qualifiers: Proteinuria type: unspecified Qualified Code(s): R80.9 - Proteinuria, unspecified Code(s): R80.9 - Proteinuria, unspecified Status: Acute (6) Hepatic steatosis: Code(s): K76.0 - Fatty (change of) liver, not elsewhere classified Status: Acute (7) Ulcer of right lower extremity: Qualifiers: Non-pressure ulcer stage: unspecified non-pressure ulcer stage Qualif ied Code(s): L97.919 - 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 lower leg with unspecified severity Code(s): L97.919 - 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 lower leg with unspecified severity Status: Acute Plan Elevated Troponin ECHO pendign No chest pain Cardiology evaluated and impression is less likely ACS GIven one dose full dose lovenox, monitor cardiology following Possible CHF Leg edema with pulm edema and pleural effusions continue Lasix F/u with ECHo report cardiology following Focal colonic wall thickening on CT GI consulted, reocmmended outpatient follow up GI following DM2 SSI with accucheks monitor Bilateral lower extremities ulcer with surrounding erythema continue Doxycycline prescribed outpatient DVT prophylaxis on Sq Lovenox Subjective Date/time seen: 09/30/24 17:08 Interval history: Comfortable at bedside Review of Systems Review of Systems: 12 systems were reviewed with pertinent positives and negatives per HPI. Except as documented in the HPI, all other systems were reviewed and are negative. Exam Narrative: Weight 109.3 kg BMI 35.6 Objective Data Vital Signs Vital Signs: Vital Signs - 24 hr 09/29/24 17:15 09/29/24 17:16 09/29/24 17:30 Temperature Pulse Rate 107 H 103 H 98 Respiratory Rate 29 H 33 H 29 H Blood Pressure 154/98 H 148/98 H Pulse Oximetry 100 100 100 Oxygen Delivery 09/29/24 17:31 09/29/24 17:45 09/29/24 17:46 Temperature Pulse Rate 99 98 97 Respiratory Rate 28 H 26 H 24 H Blood Pressure 141/97 H Pulse Oximetry 100 100 100 Oxygen Delivery 09/29/24 18:00 09/29/24 18:01 09/29/24 18:18 Temperature Pulse Rate 101 H 101 H 97 Respiratory Rate 21 H 26 H 21 H Blood Pressure 141/97 H Pulse Oximetry 98 100 99 Oxygen Delivery 09/29/24 18:59 09/29/24 19:00 09/29/24 19:35 Temperature Pulse Rate 96 96 Respiratory Rate 17 20 Blood Pressure Pulse Oximetry 98 98 100 Oxygen Delivery 09/29/24 19:46 09/29/24 20:09 09/29/24 20:15 Temperature Pulse Rate 98 97 Respiratory Rate 23 H 21 H Blood Pressure Pulse Oximetry 98 97 100 Oxygen Delivery 09/29/24 20:16 09/29/24 20:32 09/29/24 20:45 Temperature Pulse Rate 94 Respiratory Rate 22 H Blood Pressure 131/88 121/81 Pulse Oximetry 100 96 94 Oxygen Delivery 09/29/24 20:47 09/29/24 21:25 09/29/24 22:00 Temperature 98.1 F Pulse Rate 102 H 101 H Respiratory Rate 19 Blood Pressure 157/98 H Pulse Oximetry 95 99 Oxygen Delivery 09/29/24 23:31 09/30/24 00:00 09/30/24 00:00 Temperature 98.4 F Pulse Rate 93 Respiratory Rate 18 Blood Pressure 146/95 H Pulse Oximetry 100 Oxygen Delivery Room Air Room Air 09/30/24 00:00 09/30/24 02:00 09/30/24 04:00 Temperature Pulse Rate 97 89 Respiratory Rate Blood Pressure Pulse Oximetry Oxygen Delivery Room Air 09/30/24 04:00 09/30/24 04:00 09/30/24 06:00 Temperature 97.6 F Pulse Rate 89 94 85 Respiratory Rate 18 Blood Pressure 131/86 Pulse Oximetry 100 Oxygen Delivery 09/30/24 07:15 09/30/24 08:00 09/30/24 08:00 Temperature 97.8 F Pulse Rate 90 91 Respiratory Rate 14 Blood Pressure 111/66 Pulse Oximetry 98 97 Oxygen Delivery Room Air 09/30/24 10:00 09/30/24 11:25 09/30/24 12:00 Temperature 97.8 F Pulse Rate 89 95 93 Respiratory Rate 16 Blood Pressure 130/86 Pulse Oximetry 97 Oxygen Delivery 09/30/24 12:00 09/30/24 14:00 09/30/24 15:28 Temperature 98.1 F Pulse Rate 98 93 Respiratory Rate 18 Blood Pressure 109/87 Pulse Oximetry 99 Oxygen Delivery Room Air 09/30/24 16:00 09/30/24 16:00 Temperature Pulse Rate 94 Respiratory Rate Blood Pressure Pulse Oximetry Oxygen Delivery Room Air Intake/Output Intake/Output: Intake & Output 09/27/24 09/28/24 09/29/24 09/30/24 23:59 23:59 23:59 23:59 Intake Total 500 Output Total 2300 Balance -1800 Meds/Results Medications: Active Medications Generic Name Dose Route Start Last Admin Trade Name Freq PRN Reason Stop Dose Admin Aspirin 81 mg 09/30/24 11:00 09/30/24 11:59 Aspirin 81 Mg Enteric Tablet PO 81 mg QAM RIAN Administration Dextrose 12.5 gm 09/29/24 23:18 Dextrose 50% 25 Gm/50 Ml Syringe IV PUSH PRN PRN Hypoglycemia Protocol Docusate Sodium 100 mg 09/30/24 10:14 09/30/24 11:59 Docusate Sodium 100 Mg Capsule PO 100 mg Q12H PRN Administration Constipation Doxycycline Hyclate 100 mg 09/30/24 11:00 09/30/24 11:30 Doxycycline Hyclate 100 Mg Tablet PO Not Given Q12HR RIAN Empagliflozin 5 mg 09/30/24 09:00 09/30/24 11:58 Empagliflozin 5 Mg Tablet PO 5 mg DAILY RIAN Administration Enoxaparin Sodium 40 mg 09/30/24 09:00 Enoxaparin 40 Mg/0.4 Ml Syringe SUB-Q On Hold: 09/30/24 09:00 DAILY RIAN Resume: 10/01/24 09:00 Furosemide 40 mg 09/30/24 17:00 09/30/24 16:30 Furosemide Inj 40 Mg/4 Ml Vial IV PUSH 40 mg BID RIAN Administration Glucagon 1 mg 09/29/24 23:18 Glucagon For Inj 1 Mg Vial IM PRN PRN Hypoglycemia Protocol Glucose 15 gm 09/29/24 23:18 Glucose Oral Gel 15 Gm Of Glucse In 37.5 Gm Tube PO PRN PRN Hypoglycemia Protocol Dextrose 1,000 mls @ 100 mls/hr 09/29/24 23:18 Dextrose 5% 1,000 Ml IVPB PRN PRN Hypoglycemia Protocol Insulin Aspart 4 - 8 units 09/30/24 08:00 09/30/24 16:30 Insulin Aspart (*Bkc) 100 Units/Ml SUB-Q Not Given TIDWM ON LICENSE OF [facility] Protocol Insulin Aspart 1 - 3 units 09/30/24 21:00 Insulin Aspart (*Bkc) 100 Units/Ml SUB-Q HS ON LICENSE OF [facility] Protocol Insulin Glargine 80 units 09/30/24 18:00 Insulin Glargine (*Bkc) 100 Units/Ml SUB-Q QPM ON LICENSE OF [facility] Mupirocin 1 applic 09/30/24 09:30 09/30/24 16:30 Mupirocin 2% Oint 22 Gm Tube TOPICAL 1 applic TID RIAN Administration Ondansetron HCl 4 mg 09/29/24 18:48 Ondansetron Inj 4 Mg/2 Ml Vial IV PUSH Q4H PRN Nausea Radiology Results: ITS Impressions Chest X-Ray 09/29/24 15:20 IMPRESSION: Bilateral pleural effusions, left greater than right. Mild pulmonary vascular congestion. Abdomen/Pelvis CT 09/29/24 16:27 IMPRESSION: 1. Segment focal thickening of the green of the mid transverse colon. Differential includes incomplete bowel wall distention, focal colitis or mass. Direct visualization is recommended. 2. Small amount of nonspecific fluid and fat saturated scattered throughout the abdomen and pelvis. 3. Small bilateral pleural effusions. 4. Small consolidations in the lower lobes likely compressive atelectasis. 5. Small patchy opacities in the lower lungs. 6. Liver is heterogeneous possibly due to patchy focal fatty infiltration or he patocellular disease. Other etiologies are possible. Consider a liver mass MRI for further assessment. Findings as above. Labs Labs: Laboratory Results - last 24 hr 09/29/24 09/30/24 09/30/24 17:30 00:07 03:39 WBC RBC Hgb Hct MCV MCH MCHC RDW Plt Count MPV Sodium Potassium Chloride Carbon Dioxide Anion Gap BUN Creatinine Estim Creat Clear Calc Estimated GFR Glucose POC Capillary Glucose 196 H Hemoglobin A1c Calcium Magnesium Troponin I 1.350 H* Triglycerides 108 Cholesterol 164 LDL Cholesterol Direct 96 HDL Direct 37 TSH (Reflex) 09/30/24 09/30/24 09/30/24 03:42 09:54 11:26 WBC 7.2 RBC 4.80 Hgb 13.4 L Hct 41.6 L MCV 86.7 MCH 27.9 MCHC 32.2 RDW 14.4 Plt Count 385 H MPV 10.5 H Sodium 136 L Potassium 3.4 Chloride 103 Carbon Dioxide 28 Anion Gap 5 BUN 12 D Creatinine 0.67 L Estim Creat Clear Calc 142 Estimated GFR > 60 Glucose 174 H POC Capillary Glucose 93 83 Hemoglobin A1c 12.4 H Calcium 8.9 Magnesium 1.7 Troponin I 1.090 H* Triglycerides Cholesterol LDL Cholesterol Direct HDL Direct TSH (Reflex) 2.570 09/30/24 15:23 WBC RBC Hgb Hct MCV MCH MCHC RDW Plt Count MPV Sodium Potassium Chloride Carbon Dioxide Anion Gap BUN Creatinine Estim Creat Clear Calc Estimated GFR Glucose POC Capillary Glucose 99 Hemoglobin A1c Calcium Magnesium Troponin I Triglycerides Cholesterol LDL Cholesterol Direct HDL Direct TSH (Reflex) Quality VTE Prophylaxis VTE prophylaxis: pharmacologic ordered (Lovenox 40 mg subQ daily.)
[2024-09-30] MEDS: DOXYCYCLINE HYCLATE 100 MG TABLET PO (20:13)
[2024-10-01] VITALS (30 sets, daily range): BP systolic 118–148; BP diastolic 68–99; PULSE 79–105; RESP 14–22; TEMP 36.4–36.9; O2SAT 95–100
[2024-10-01 03:27] LABS: Hematocrit 41.7 % (42.0-52.0); Hemoglobin 13.5 g/dL (14.0-18.0); Immature Granulocyte Percent A 0.4 % (0-0.5); Lymphocytes Absolute Auto 2.04 K/mm3 (0.9-3.2); Mean Corpuscular HGB Conc 32.4 g/dl (32-36); Mean Corpuscular Hemoglobin 27.8 pg (26-34); Mean Corpuscular Volume 86.0 fl (80-100); Nucleated Red Blood Cells Absolute Auto 0.000 K/mm3 (0.0-0.012); Nucleated Red Blood Cells Perc 0.0 % (0.0-0.2); Platelet Count Result 337 k/mm3 (150-375); Red Blood Count 4.85 M/mm3 (4.6-6.20); White Blood Count 7.4 K/mm3 (4.5-10.0)
[2024-10-01 03:40] LABS: Alanine Aminotransferase 52 U/L (6-50); Albumin Level 3.0 g/dL (3.5-5.1); Alkaline Phosphatase 81 U/L (38-126); Anion Gap 6 mmol/L (4-12); Aspartate Amino Transferase 36 U/L (17-59); Bilirubin,Total 0.3 mg/dL (0.2-1.3); Blood Urea Nitrogen 14 mg/dL (9-20); Calcium 8.8 mg/dL (8.4-10.2); Carbon Dioxide 29 mmol/L (22-30); Chloride 105 mmol/L (98-107); Estimated CRCL calculation 125 ml/min; Estimated Glomerular Filt Rate > 60; Glucose 47 mg/dL (65-110); Magnesium 2.0 mg/dL (1.6-2.3); Potassium 3.6 mmol/L (3.4-5.0); Sodium 140 mmol/L (137-145); Total Protein 6.0 g/dL (6.3-8.2)
[2024-10-01] MEDS: DEXTROSE 50% 25 GM/50 ML SYRINGE IV PUSH ×3 (03:53→13:07)
[2024-10-01] MEDS: EMPAGLIFLOZIN 5 MG TABLET PO (09:05)
[2024-10-01] MEDS: DOXYCYCLINE HYCLATE 100 MG TABLET PO ×2 (09:05→20:28)
[2024-10-01] MEDS: ASPIRIN 81 MG ENTERIC TABLET PO (09:05)
[2024-10-01] MEDS: FUROSEMIDE INJ 40 MG/4 ML VIAL IV PUSH ×2 (09:06→17:26)
[2024-10-01] MEDS: MUPIROCIN 2% OINT 22 GM TUBE 1 APPLIC TOPICAL ×2 (09:06→12:33)
[2024-10-01] MEDS: ENOXAPARIN 40 MG/0.4 ML SYRINGE SUB-Q (09:39)
--- NOTE | 2024-10-01 11:18 | PM.IMPN ---
Progress Note: A&P Assessment and Plan (1) Elevated troponin: Code(s): R79.89 - Other specified abnormal findings of blood chemistry Status: Acute (2) CHF (congestive heart failure): Qualifiers: Heart failure chronicity: acute on chronic Heart failure type: unspecified Qualified Code(s): I50.9 - Heart failure, unspecified Code(s): I50.9 - Heart failure, unspecified Status: Acute (3) Acute electrocardiogram changes: Code(s): R94.31 - Abnormal electrocardiogram [ECG] [EKG] Status: Acute (4) Type 2 diabetes mellitus with hyperglycemia, with long-term current use of insulin: Code(s): E11.65 - Type 2 diabetes mellitus with hyperglycemia; Z79.4 - assisted (current) use of insulin Status: Acute (5) Proteinuria: Qualifiers: Proteinuria type: unspecified Qualified Code(s): R80.9 - Proteinuria, unspecified Code(s): R80.9 - Proteinuria, unspecified Status: Acute (6) Hepatic steatosis: Code(s): K76.0 - Fatty (change of) liver, not elsewhere classified Status: Acute (7) Ulcer of right lower extremity: Qualifiers: Non-pressure ulcer stage: unspecified non-pressure ulcer stage Qualified Code(s): L97.919 - 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 lower leg with unspecified severity Code(s): L97.919 - 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 lower leg with unspecified severity Status: Acute Plan Plan Elevated Troponin Troponin 1.35 ECHO Ef 40-45% No chest pain For cardiac cath cardiology following Cardiomyopathy Leg edema with pulm edema and pleural effusions ECHO 40-45% continue Lasix 40mg po cardiology following Focal colonic wall thickening on CT GI consulted, recommended outpatient follow up GI following DM2 SSI with accucheks monitor Bilateral lower extremities ulcer with surrounding erythema continue Doxycycline prescribed outpatient DVT prophylaxis on Sq Lovenox Subjective Date/time seen: 10/01/24 11:18 Interval history: Comfortable at bedside For cardiac cath today per surgery Review of Systems Review of Systems: 12 systems were reviewed with pertinent positives and negatives per HPI. Except as documented in the HPI, all other systems were reviewed and are negative. Exam Narrative: Weight 109.3 kg BMI 35.6 Const: Other: Obese, no acute distress HENMT: Other: Mucous membranes are moist, no oral pharyngeal erythema, crowded posterior oropharynx Eyes: Other: Pupils are equal and reactive, no scleral icterus, no conjunctival pallor Neck: Other: Large neck circumference, no lymphadenopathy, no JVD Resp: Other: Clear to auscultation bilaterally, no increased work of breathing Cardio: Other: Regular rate, regular rhythm, 2+ bilateral radial pedal pulses, no JVD GI: Other: Distended, non tender, normoactive bowel sounds Skin: Other: The irregularly shaped ulcer of the knee right lateral cumm[place] with no surrounding erythema or evidence of infection, no drainage,, patient also has a smaller area of irritation the medial right ankle and the ER shallow ulceration on the is lateral or the left as well, he has a hematoma to the tip of the right great toe Neuro: Other: Alert oriented x4, speech is clear, no facial asymmetry, no localizing neurologic deficits noted during the course of casual conversation Extrem: Other: 2+ pitting edema of lower extremities up to the calf, no clubbing, no cyanosis, moves all extremities equally, ulcers as discussed above Psych: Other: Unusual affect but overall all generally pleasant and cooperative, intact judgment and insight Objective Data Vital Signs Vital Signs: Vital Signs - 24 hr 09/30/24 11:25 09/30/24 12:00 09/30/24 12:00 Temperature 97.8 F Pulse Rate 95 93 Respiratory Rate 16 Blood Pressure 130/86 Pulse Oximetry 97 Oxygen Delivery Room Air 09/30/24 14:00 09/30/24 15:28 09/30/24 16:00 Temperature 98.1 F Pulse Rate 98 93 94 Respiratory Rate 18 Blood Pressure 109/87 Pulse Oximetry 99 Oxygen Delivery 09/30/24 16:00 09/30/24 18:00 09/30/24 19:53 Temperature 98.2 F Pulse Rate 98 98 Respiratory Rate 20 Blood Pressure 126/88 Pulse Oximetry 99 Oxygen Delivery Room Air 09/30/24 20:00 09/30/24 20:00 09/30/24 22:00 Temperature Pulse Rate 98 87 Respiratory Rate Blood Pressure Pulse Oximetry Oxygen Delivery Room Air 09/30/24 23:59 10/01/24 00:00 10/01/24 00:00 Temperature 98.1 F Pulse Rate 85 85 Respiratory Rate 18 Blood Pressure 116/70 Pulse Oximetry 95 Oxygen Delivery Room Air 10/01/24 02:00 10/01/24 03:46 10/01/24 04:00 Temperature 97.6 F Pulse Rate 79 90 Respiratory Rate 16 Blood Pressure 125/68 Pulse Oximetry 95 Oxygen Delivery Room Air 10/01/24 04:00 10/01/24 06:00 10/01/24 07:56 Temperature Pulse Rate 87 96 Respiratory Rate Blood Pressure Pulse Oximetry 95 Oxygen Delivery Room Air 10/01/24 08:00 10/01/24 08:00 10/01/24 08:00 Temperature 97.9 F Pulse Rate 89 96 Respiratory Rate 18 Blood Pressure 148/94 H Pulse Oximetry 100 Oxygen Delivery Room Air 10/01/24 10:00 Temperature Pulse Rate 99 Respiratory Rate Blood Pressure Pulse Oximetry Oxygen Delivery Intake/Output Intake/Output: Intake & Output 09/28/24 09/29/24 09/30/24 10/01/24 23:59 23:59 23:59 23:59 Intake Total 500 994 Output Total 4600 1200 Balance -4100 -206 Meds/Results Medications: Active Medications Generic Name Dose Route Start Last Admin Trade Name Freq PRN Reason Stop Dose Admin Aspirin 81 mg 09/30/24 11:00 10/01/24 09:05 Aspirin 81 Mg Enteric Tablet PO 81 mg QAM RIAN Administration Carvedilol 6.25 mg 10/01/24 21:00 Carvedilol 6.25 Mg Tablet PO Q12HR RIAN Dextrose 12.5 gm 09/29/24 23:18 10/01/24 03:53 Dextrose 50% 25 Gm/50 Ml Syringe IV PUSH 12.5 gm PRN PRN Administration Hypoglycemia Protocol Docusate Sodium 100 mg 09/30/24 10:14 09/30/24 11:59 Docusate Sodium 100 Mg Capsule PO 100 mg Q12H PRN Administration Constipation Doxycycline Hyclate 100 mg 09/30/24 11:00 10/01/24 09:05 Doxycycline Hyclate 100 Mg Tablet PO 100 mg Q12HR RIAN Administration Empagliflozin 5 mg 09/30/24 09:00 10/01/24 09:05 Empagliflozin 5 Mg Tablet PO 5 mg DAILY RIAN Administration Enoxaparin Sodium 40 mg 10/01/24 09:00 10/01/24 09:39 Enoxaparin 40 Mg/0.4 Ml Syringe SUB-Q 40 mg DAILY RIAN Administration Furosemide 40 mg 10/02/24 09:00 Furosemide 40 Mg Tablet PO DAILY RIAN Glucagon 1 mg 09/29/24 23:18 Glucagon For Inj 1 Mg Vial IM PRN PRN Hypoglycemia Protocol Glucose 15 gm 09/29/24 23:18 Glucose Oral Gel 15 Gm Of Glucse In 37.5 Gm Tube PO PRN PRN Hypoglycemia Protocol Dextrose 1,000 mls @ 100 mls/hr 09/29/24 23:18 Dextrose 5% 1,000 Ml IVPB PRN PRN Hypoglycemia Protocol Insulin Aspart 4 - 8 units 09/30/24 08:00 10/01/24 08:50 Insulin Aspart (*Bkc) 100 Units/Ml SUB-Q Not Given TIDWM [facility] Protocol Insulin Aspart 1 - 3 units 09/30/24 21:00 09/30/24 19:53 Insulin Aspart (*Bkc) 100 Units/Ml SUB-Q Not Given HS [facility] Protocol Insulin Glargine 40 units 10/01/24 18:00 Insulin Glargine (*Bkc) 100 Units/Ml SUB-Q QPM RIAN Losartan Potassium 12.5 mg 10/02/24 09:00 Losartan Potassium 12.5 Mg Tablet PO DAILY RIAN Mupirocin 1 applic 09/30/24 09:30 10/01/24 09:06 Mupirocin 2% Oint 22 Gm Tube TOPICAL 1 applic TID RIAN Administration Ondansetron HCl 4 mg 09/29/24 18:48 Ondansetron Inj 4 Mg/2 Ml Vial IV PUSH Q4H PRN Nausea Radiology Results: ITS Impressions Chest X-Ray 09/29/24 15:20 IMPRESSION: Bilateral pleural effusions, left greater than right. Mild pulmonary vascular congestion. Abdomen/Pelvis CT 09/29/24 16:27 IMPRESSION: 1. Segment focal thickening of the green of the mid transverse colon. Differential includes incomplete bowel wall distention, focal colitis or mass. Direct visualization is recommended. 2. Small amount of nonspecific fluid and fat saturated scattered throughout the abdomen and pelvis. 3. Small bilateral pleural effusions. 4. Small consolidations in the lower lobes likely compressive atelectasis. 5. Small patchy opacities in the lower lungs. 6. Liver is heterogeneous possibly due to patchy focal fatty infiltration or hepatocellular disease. Other etiologies are possible. Consider a liver mass MRI for further assessment. Findings as above. Labs Labs: Laboratory Results - last 24 hr 09/30/24 09/30/24 09/30/24 11:26 15:23 19:48 WBC RBC Hgb Hct MCV MCH MCHC RDW Plt Count MPV Immature Gran % (Auto) Neut % (Auto) Lymph % (Auto) [place] % (Auto) Eos % (Auto) Baso % (Auto) Lymph # (Auto) [place] # (Auto) Eos # (Auto) Baso # (Auto) Abs Immat Gran (auto) Absolute Neuts (auto) Absolute Nucleated RBC Nucleated RBC % Sodium Potassium Chloride Carbon Dioxide Anion Gap BUN Creatinine Estim Creat Clear Calc Estimated GFR Glucose POC Capillary Glucose 83 99 102 Calcium Magnesium Total Bilirubin AST ALT Alkaline Phosphatase Total Protein Albumin 10/01/24 10/01/24 10/01/24 03:22 03:52 04:02 WBC 7.4 RBC 4.85 Hgb 13.5 L Hct 41.7 L MCV 86.0 MCH 27.8 MCHC 32.4 RDW 14.4 Plt Count 337 MPV 9.7 Immature Gran % (Auto) 0.4 Neut % (Auto) 59.0 Lymph % (Auto) 27.6 [place] % (Auto) 11.4 H Eos % (Auto) 0.8 Baso % (Auto) 0.8 Lymph # (Auto) 2.04 [place] # (Auto) 0.8 H Eos # (Auto) 0.1 Baso # (Auto) 0.1 Abs Immat Gran (auto) 0.03 Absolute Neuts (auto) 4.4 Absolute Nucleated RBC 0.000 Nucleated RBC % 0.0 Sodium 140 Potassium 3.6 Chloride 105 Carbon Dioxide 29 Anion Gap 6 BUN 14 Creatinine 0.77 Estim Creat Clear Calc 125 Estimated GFR > 60 Glucose 47 L* POC Capillary Glucose 46 L* 117 H Calcium 8.8 Magnesium 2.0 Total Bilirubin 0.3 AST 36 ALT 52 H Alkaline Phosphatase 81 Total Protein 6.0 L Albumin 3.0 L 10/01/24 10/01/24 07:34 08:54 WBC RBC Hgb Hct MCV MCH MCHC RDW Plt Count MPV Immature Gran % (Auto) Neut % (Auto) Lymph % (Auto) [place] % (Auto) Eos % (Auto) Baso % (Auto) Lymph # (Auto) [place] # (Auto) Eos # (Auto) Baso # (Auto) Abs Immat Gran (auto) Absolute Neuts (auto) Absolute Nucleated RBC Nucleated RBC % Sodium Potassium Chloride Carbon Dioxide Anion Gap BUN Creatinine Estim Creat Clear Calc Estimated GFR Glucose POC Capillary Glucose 79 136 H Calcium Magnesium Total Bilirubin AST ALT Alkaline Phosphatase Total Protein Albumin Quality VTE Prophylaxis VTE prophylaxis: pharmacologic ordered (Lovenox 40 mg subQ daily.)
--- NOTE | 2024-10-01 13:53 | PC.NURSE ---
Notified Dr Albert of patients lower POC sugar checks. PT is NPO for cardiac cath that is scheduled for around 1400. Received order for D10 at 125ml/hr and to stop after procedure. Order read back and verified.
[2024-10-01] MEDS: DEXTROSE 10% 1,000 ML 125 ML IV CONT (14:04)
--- NOTE | 2024-10-01 14:25 | WPDMODSED ---
Moderate Sedation Note-Pt Data Patient Data Diagnosis: NSTEMI Procedure to be performed/Plan: Left heart catheterization Coronary angiography Allergies Allergy/AdvReac Type Severity Reaction Status Date / Time No Known Allergies Allergy Verified 09/29/24 12:51 Home Medications ?Medication ?Instructions ?Recorded ?Confirmed ?Type doxycycline hyclate 100 mg capsule 100 mg PO Q12H 09/29/24 09/29/24 History insulin glargine 100 unit/mL 80 unit subcut QPM 09/29/24 09/29/24 History subcutaneous solution (Lantus U-100 Insulin) metformin 1,000 mg tablet 1,000 mg PO DAILY 09/29/24 09/29/24 History mupirocin 2 % topical ointment 1 applic topical TID 09/29/24 09/29/24 History Current Medications: Active Medications Aspirin (Aspirin 81 Mg Enteric Tablet) 81 mg PO QAM [facility] Last Admin: 10/01/24 09:05 Dose: 81 mg Carvedilol (Carvedilol 6.25 Mg Tablet) 6.25 mg PO Q12HR [facility] Dextrose (Dextrose 50% 25 Gm/50 Ml Syringe) 12.5 gm IV PUSH PRN PRN; Protocol PRN Reason: Hypoglycemia Last Admin: 10/01/24 13:07 Dose: 12.5 gm Docusate Sodium (Docusate Sodium 100 Mg Capsule) 100 mg PO Q12H PRN PRN Reason: Constipation Last Admin: 09/30/24 11:59 Dose: 100 mg Doxycycline Hyclate (Doxycycline Hyclate 100 Mg Tablet) 100 mg PO Q12HR [facility] Last Admin: 10/01/24 09:05 Dose: 100 mg Empagliflozin (Empagliflozin 5 Mg Tablet) 5 mg PO DAILY [facility] Last Admin: 10/01/24 09:05 Dose: 5 mg Enoxaparin Sodium (Enoxaparin 40 Mg/0.4 Ml Syringe) 40 mg SUB-Q DAILY [facility] Last Admin: 10/01/24 09:39 Dose: 40 mg Furosemide (Furosemide 40 Mg Tablet) 40 mg PO DAILY [facility] Glucagon (Glucagon For Inj 1 Mg Vial) 1 mg IM PRN PRN; Protocol PRN Reason: Hypoglycemia Glucose (Glucose Oral Gel 15 Gm Of Glucse In 37.5 Gm Tube) 15 gm PO PRN PRN; Protocol PRN Reason: Hypoglycemia Dextrose (Dextrose 5% 1,000 Ml) 1,000 mls @ 100 mls/hr IVPB PRN PRN; Protocol PRN Reason: Hypoglycemia Dextrose (Dextrose 10%) 1,000 mls @ 125 mls/hr IV CONT .Q8H RIAN Last Admin: 10/01/24 14:04 Dose: 125 mls/hr Insulin Aspart (Insulin Aspart (*Bkc) 100 Units/Ml) 4 - 8 units SUB-Q TIDWM RIAN; Protocol Last Admin: 10/01/24 11:54 Dose: Not Given Insulin Aspart (Insulin Aspart (*Bkc) 100 Units/Ml) 1 - 3 units SUB-Q HS RIAN; Protocol Last Admin: 09/30/24 19:53 Dose: Not Given Insulin Glargine (Insulin Glargine (*Bkc) 100 Units/Ml) 40 units SUB-Q QPM RIAN Losartan Potassium (Losartan Potassium 12.5 Mg Tablet) 12.5 mg PO DAILY RIAN Mupirocin (Mupirocin 2% Oint 22 Gm Tube) 1 applic TOPICAL TID RIAN Last Admin: 10/01/24 12:33 Dose: 1 applic Ondansetron HCl (Ondansetron Inj 4 Mg/2 Ml Vial) 4 mg IV PUSH Q4H PRN PRN Reason: Nausea Sedation/Anesthesia: No previous sedation/anesthesia problems (including family history). [facility] Past Medical History Medical History Alcoholism in recovery In recovery since 2013 Essential hypertension Type 2 diabetes mellitus treated with insulin CHF (congestive heart failure) Surgical History Surgical History History of laparoscopic adjustable gastric banding Family History Family History Father Aortic valve replaced Social History Social History (Updated 10/01/24 @ 01:04 by Laila Bragg DO) Social History: He lives in [place]. 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 He has a history of alcoholism in recovery she she she. The the drink heavily for about 10 years but quit drinking alcohol in 2013. Code status: Full code (patient has living will) Surrogate decision maker: Ruben (brother) Smoking status: Never smoker Alcohol intake: former Alcohol use details: Quit 2013 Substance use: never Lack of Transportation: No Lack of Food: Never True Current Housing: I Have Housing Concerned About Future Housing: No Difficulty Paying Gas/Electric Bills: No Difficulty Paying for Meds: No Currently Unemployed: No Education: Associate Degree Difficulty w/ Childcare or Family Care: No Spiritual care concerns: No Mod Sed Physical Exam Physical Exam Pre Procedural Exam: Normal: Appearance, Eyes, Ears, Nose, Neck, Throat, Airway, Lungs, Heart Size, Heart Rate, Heart Rhythm, Neuro Exam, Abdomen, Liver, Kidneys, Spleen, Breasts, Genitalia, Extremities and Skin Hours since solid foods: 8 Hours since liquid intake: 8 Mallampati Classification: class II Internal Medicine - PN: Obj Da Vital Signs Vital Signs: Vital Signs - 24 hr 09/30/24 15:28 09/30/24 16:00 09/30/24 16:00 Temperature 36.7 C Pulse Rate 93 94 Respiratory Rate 18 Blood Pressure 109/87 Pulse Oximetry 99 Oxygen Delivery Room Air 09/30/24 18:00 09/30/24 19:53 09/30/24 20:00 Temperature 36.8 C Pulse Rate 98 98 Respiratory Rate 20 Blood Pressure 126/88 Pulse Oximetry 99 Oxygen Delivery Room Air 09/30/24 20:00 09/30/24 22:00 09/30/24 23:59 Temperature 36.7 C Pulse Rate 98 87 85 Respiratory Rate 18 Blood Pressure 116/70 Pulse Oximetry 95 Oxygen Delivery 10/01/24 00:00 10/01/24 00:00 10/01/24 02:00 Temperature Pulse Rate 85 79 Respiratory Rate Blood Pressure Pulse Oximetry Oxygen Delivery Room Air 10/01/24 03:46 10/01/24 04:00 10/01/24 04:00 Temperature 36.4 C Pulse Rate 90 87 Respiratory Rate 16 Blood Pressure 125/68 Pulse Oximetry 95 Oxygen Delivery Room Air 10/01/24 06:00 10/01/24 07:56 10/01/24 08:00 Temperature 36.6 C Pulse Rate 96 89 Respiratory Rate 18 Blood Pressure 148/94 H Pulse Oximetry 95 100 Oxygen Delivery Room Air 10/01/24 08:00 10/01/24 08:00 10/01/24 10:00 Temperature Pulse Rate 96 99 Respiratory Rate Blood Pressure Pulse Oximetry Oxygen Delivery Room Air 10/01/24 12:00 10/01/24 12:00 10/01/24 12:00 Temperature 36.5 C Pulse Rate 99 100 Respiratory Rate 22 H Blood Pressure 131/85 Pulse Oximetry 100 Oxygen Delivery Room Air Intake/Output Intake/Output: Intake & Output 09/28/24 09/29/24 09/30/24 10/01/24 23:59 23:59 23:59 23:59 Intake Total 500 994 Output Total 4600 8050 Balance -8890 -5363 Meds/Results Medications: Active Medications Generic Name Dose Route Start Last Admin Trade Name Freq PRN Reason Stop Dose Admin Aspirin 81 mg 09/30/24 11:00 10/01/24 09:05 Aspirin 81 Mg Enteric Tablet PO 81 mg QAM RIAN Administration Carvedilol 6.25 mg 10/01/24 21:00 Carvedilol 6.25 Mg Tablet PO Q12HR RIAN Dextrose 12.5 gm 09/29/24 23:18 10/01/24 13:07 Dextrose 50% 25 Gm/50 Ml Syringe IV PUSH 12.5 gm PRN PRN Administration Hypoglycemia Protocol Docusate Sodium 100 mg 09/30/24 10:14 09/30/24 11:59 Docusate Sodium 100 Mg Capsule PO 100 mg Q12H PRN Administration Constipation Doxycycline Hyclate 100 mg 09/30/24 11:00 10/01/24 09:05 Doxycycline Hyclate 100 Mg Tablet PO 100 mg Q12HR RIAN Administration Empagliflozin 5 mg 09/30/24 09:00 10/01/24 09:05 Empagliflozin 5 Mg Tablet PO 5 mg DAILY RIAN Administration Enoxaparin Sodium 40 mg 10/01/24 09:00 10/01/24 09:39 Enoxaparin 40 Mg/0.4 Ml Syringe SUB-Q 40 mg DAILY RIAN Administration Furosemide 40 mg 10/02/24 09:00 Furosemide 40 Mg Tablet PO DAILY RIAN Glucagon 1 mg 09/29/24 23:18 Glucagon For Inj 1 Mg Vial IM PRN PRN Hypoglycemia Protocol Glucose 15 gm 09/29/24 23:18 Glucose Oral Gel 15 Gm Of Glucse In 37.5 Gm Tube PO PRN PRN Hypoglycemia Protocol Dextrose 1,000 mls @ 100 mls/hr 09/29/24 23:18 Dextrose 5% 1,000 Ml IVPB PRN PRN Hypoglycemia Protocol Dextrose 1,000 mls @ 125 mls/hr 10/01/24 14:00 10/01/24 14:04 Dextrose 10% IV CONT 125 mls/hr .Q8H RIAN Administration Insulin Aspart 4 - 8 units 09/30/24 08:00 10/01/24 11:54 Insulin Aspart (*Bkc) 100 Units/Ml SUB-Q Not Given TIDWM [facility] Protocol Insulin Aspart 1 - 3 units 09/30/24 21:00 09/30/24 19:53 Insulin Aspart (*Bkc) 100 Units/Ml SUB-Q Not Given HS [facility] Protocol Insulin Glargine 40 units 10/01/24 18:00 Insulin Glargine (*Bkc) 100 Units/Ml SUB-Q QPM RIAN Losartan Potassium 12.5 mg 10/02/24 09:00 Losartan Potassium 12.5 Mg Tablet PO DAILY RIAN Mupirocin 1 applic 09/30/24 09:30 10/01/24 12:33 Mupirocin 2% Oint 22 Gm Tube TOPICAL 1 applic TID RIAN Administration Ondansetron HCl 4 mg 09/29/24 18:48 Ondansetron Inj 4 Mg/2 Ml Vial IV PUSH Q4H PRN Nausea Radiology Results: ITS Impressions Chest X-Ray 09/29/24 15:20 IMPRESSION: Bilateral pleural effusions, left greater than right. Mild pulmonary vascular congestion. Abdomen/Pelvis CT 09/29/24 16:27 IMPRESSION: 1. Segment focal thickening of the green of the mid transverse colon. Differential includes incomplete bowel wall distention, focal colitis or mass. Direct visualization is recommended. 2. Small amount of nonspecific fluid and fat saturated scattered throughout the abdomen and pelvis. 3. Small bilateral pleural effusions. 4. Small consolidations in the lower lobes likely compressive atelectasis. 5. Small patchy opacities in the lower lungs. 6. Liver is heterogeneous possibly due to patchy focal fatty infiltration or hepatocellular disease. Other etiologies are possible. Consider a liver mass MRI for further assessment. Findings as above. Labs 10/01/24 03:22 10/01/24 03:22 Labs: Laboratory Results - last 24 hr 09/30/24 09/30/24 10/01/24 15:23 19:48 03:22 WBC 7.4 RBC 4.85 Hgb 13.5 L Hct 41.7 L MCV 86.0 MCH 27.8 MCHC 32.4 RDW 14.4 Plt Count 337 MPV 9.7 Immature Gran % (Auto) 0.4 Neut % (Auto) 59.0 Lymph % (Auto) 27.6 [place] % (Auto) 11.4 H Eos % (Auto) 0.8 Baso % (Auto) 0.8 Lymph # (Auto) 2.04 [place] # (Auto) 0.8 H Eos # (Auto) 0.1 Baso # (Auto) 0.1 Abs Immat Gran (auto) 0.03 Absolute Neuts (auto) 4.4 Absolute Nucleated RBC 0.000 Nucleated RBC % 0.0 Sodium 140 Potassium 3.6 Chloride 105 Carbon Dioxide 29 Anion Gap 6 BUN 14 Creatinine 0.77 Estim Creat Clear Calc 125 Estimated GFR > 60 Glucose 47 L* POC Capillary Glucose 99 102 Calcium 8.8 Magnesium 2.0 Total Bilirubin 0.3 AST 36 ALT 52 H Alkaline Phosphatase 81 Total Protein 6.0 L Albumin 3.0 L 10/01/24 10/01/24 10/01/24 03:52 04:02 07:34 WBC RBC Hgb Hct MCV MCH MCHC RDW Plt Count MPV Immature Gran % (Auto) Neut % (Auto) Lymph % (Auto) [place] % (Auto) Eos % (Auto) Baso % (Auto) Lymph # (Auto) [place] # (Auto) Eos # (Auto) Baso # (Auto) Abs Immat Gran (auto) Absolute Neuts (auto) Absolute Nucleated RBC Nucleated RBC % Sodium Potassium Chloride Carbon Dioxide Anion Gap BUN Creatinine Estim Creat Clear Calc Estimated GFR Glucose POC Capillary Glucose 46 L* 117 H 79 Calcium Magnesium Total Bilirubin AST ALT Alkaline Phosphatase Total Protein Albumin 10/01/24 10/01/24 10/01/24 08:54 11:41 12:32 WBC RBC Hgb Hct MCV MCH MCHC RDW Plt Count MPV Immature Gran % (Auto) Neut % (Auto) Lymph % (Auto) [place] % (Auto) Eos % (Auto) Baso % (Auto) Lymph # (Auto) [place] # (Auto) Eos # (Auto) Baso # (Auto) Abs Immat Gran (auto) Absolute Neuts (auto) Absolute Nucleated RBC Nucleated RBC % Sodium Potassium Chloride Carbon Dioxide Anion Gap BUN Creatinine Estim Creat Clear Calc Estimated GFR Glucose POC Capillary Glucose 136 H 61 L 85 Calcium Magnesium Total Bilirubin AST ALT Alkaline Phosphatase Total Protein Albumin 10/01/24 10/01/24 13:02 13:46 WBC RBC Hgb Hct MCV MCH MCHC RDW Plt Count MPV Immature Gran % (Auto) Neut % (Auto) Lymph % (Auto) [place] % (Auto) Eos % (Auto) Baso % (Auto) Lymph # (Auto) [place] # (Auto) Eos # (Auto) Baso # (Auto) Abs Immat Gran (auto) Absolute Neuts (auto) Absolute Nucleated RBC Nucleated RBC % Sodium Potassium Chloride Carbon Dioxide Anion Gap BUN Creatinine Estim Creat Clear Calc Estimated GFR Glucose POC Capillary Glucose 66 76 Calcium Magnesium Total Bilirubin AST ALT Alkaline Phosphatase Total Protein Albumin ASA Classification/Sedation ASA Classification/Sedation ASA Class: III Emergent: No Risks: Risks, benefits and alternatives explained and patient/family accepted plan for sedation. Patient re-evaluated immediately prior to sedation.
--- NOTE | 2024-10-01 14:50 | PM.IMPN ---
Progress Note: A&P Assessment and Plan (1) Elevated troponin: Code(s): R79.89 - Other specified abnormal findings of blood chemistry Status: Acute (2) CHF (congestive heart failure): Qualifiers: Heart failure chronicity: acute on chronic Heart failure type: unspecified Qualified Code(s): I50.9 - Heart failure, unspecified Code(s): I50.9 - Heart failure, unspecified Status: Acute (3) Acute electrocardiogram changes: Code(s): R94.31 - Abnormal electrocardiogram [ECG] [EKG] Status: Acute (4) Type 2 diabetes mellitus with hyperglycemia, with long-term current use of insulin: Code(s): E11.65 - Type 2 diabetes mellitus with hyperglycemia; Z79.4 - skilled nursing (current) use of insulin Status: Acute (5) Proteinuria: Qualifiers: Proteinuria type: unspecified Qualified Code(s): R80.9 - Proteinuria, unspecified Code(s): R80.9 - Proteinuria, unspecified Status: Acute (6) Hepatic steatosis: Code(s): K76.0 - Fatty (change of) liver, not elsewhere classified Status: Acute (7) Ulcer of right lower extremity: Qualifiers: Non-pressure ulcer stage: unspecified non-pressure ulcer stage Qualified Code(s): L97.919 - 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 lower leg with unspecified severity Code(s): L97.919 - 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 lower leg with unspecified severity Status: Acute Plan Plan Elevated Troponin Troponin 1.35 ECHO Ef 40-45% No chest pain For cardiac cath cardiology following Cardiomyopathy Leg edema with pulm edema and pleural effusions ECHO 40-45% continue Lasix 40mg IV bid cardiology following Focal colonic wall thickening on CT GI consulted, recommended outpatient follow up GI following DM2 SSI with accucheks monitor Bilateral lower extremities ulcer with surrounding erythema continue Doxycycline prescribed outpatient DVT prophylaxis on Sq Lovenox Subjective Date/time seen: 10/01/24 14:50 Interval history: Comfortable at bedside cardiac cath rescheduled for today Review of Systems Review of Systems: 12 systems were reviewed with pertinent positives and negatives per HPI. Except as documented in the HPI, all other systems were reviewed and are negative. Exam Narrative: Weight 109.3 kg BMI 35.6 Const: Other: Obese, no acute distress HENMT: Other: Mucous membranes are moist, no oral pharyngeal erythema, crowded posterior oropharynx Eyes: Other: Pupils are equal and reactive, no scleral icterus, no conjunctival pallor Neck: Other: Large neck circumference, no lymphadenopathy, no JVD Resp: Other: Clear to auscultation bilaterally, no increased work of breathing Cardio: Other: Regular rate, regular rhythm, 2+ bilateral radial pedal pulses, no JVD GI: Other: Distended, non tender, normoactive bowel sounds Skin: Other: The irregularly shaped ulcer of the knee right lateral cummins with no surrounding erythema or evidence of infection, no drainage,, patient also has a smaller area of irritation the medial right ankle and the ER shallow ulceration on the is lateral or the left as well, he has a hematoma to the tip of the right great toe Neuro: Other: Alert oriented x4, speech is clear, no facial asymmetry, no localizing neurologic deficits noted during the course of casual conversation Extrem: Other: 2+ pitting edema of lower extremities up to the calf, no clubbing, no cyanosis, moves all extremities equally, ulcers as discussed above Psych: Other: Unusual affect but overall all generally pleasant and cooperative, intact judgment and insight Objective Data Vital Signs Vital Signs: Vital Signs - 24 hr 09/30/24 15:28 09/30/24 16:00 09/30/24 16:00 Temperature 98.1 F Pulse Rate 93 94 Respiratory Rate 18 Blood Pressure 109/87 Pulse Oximetry 99 Oxygen Delivery Room Air 09/30/24 18:00 09/30/24 19:53 09/30/24 20:00 Temperature 98.2 F Pulse Rate 98 98 Respiratory Rate 20 Blood Pressure 126/88 Pulse Oximetry 99 Oxygen Delivery Room Air 09/30/24 20:00 09/30/24 22:00 09/30/24 23:59 Temperature 98.1 F Pulse Rate 98 87 85 Respiratory Rate 18 Blood Pressure 116/70 Pulse Oximetry 95 Oxygen Delivery 10/01/24 00:00 10/01/24 00:00 10/01/24 02:00 Temperature Pulse Rate 85 79 Respiratory Rate Blood Pressure Pulse Oximetry Oxygen Delivery Room Air 10/01/24 03:46 10/01/24 04:00 10/01/24 04:00 Temperature 97.6 F Pulse Rate 90 87 Respiratory Rate 16 Blood Pressure 125/68 Pulse Oximetry 95 Oxygen Delivery Room Air 10/01/24 06:00 10/01/24 07:56 10/01/24 08:00 Temperature 97.9 F Pulse Rate 96 89 Respiratory Rate 18 Blood Pressure 148/94 H Pulse Oximetry 95 100 Oxygen Delivery Room Air 10/01/24 08:00 10/01/24 08:00 10/01/24 10:00 Temperature Pulse Rate 96 99 Respiratory Rate Blood Pressure Pulse Oximetry Oxygen Delivery Room Air 10/01/24 12:00 10/01/24 12:00 10/01/24 12:00 Temperature 97.7 F Pulse Rate 99 100 Respiratory Rate 22 H Blood Pressure 131/85 Pulse Oximetry 100 Oxygen Delivery Room Air Intake/Output Intake/Output: Intake & Output 09/28/24 09/29/24 09/30/24 10/01/24 23:59 23:59 23:59 23:59 Intake Total 500 994 Output Total 4600 2900 Balance -4100 -2549 Meds/Results Medications: Active Medications Generic Name Dose Route Start Last Admin Trade Name Freq PRN Reason Stop Dose Admin Aspirin 81 mg 09/30/24 11:00 10/01/24 09:05 Aspirin 81 Mg Enteric Tablet PO 81 mg QAM RIAN Administration Carvedilol 6.25 mg 10/01/24 21:00 Carvedilol 6.25 Mg Tablet PO Q12HR RIAN Dextrose 12.5 gm 09/29/24 23:18 10/01/24 13:07 Dextrose 50% 25 Gm/50 Ml Syringe IV PUSH 12.5 gm PRN PRN Administration Hypoglycemia Protocol Docusate Sodium 100 mg 09/30/24 10:14 09/30/24 11:59 Docusate Sodium 100 Mg Capsule PO 100 mg Q12H PRN Administration Constipation Doxycycline Hyclate 100 mg 09/30/24 11:00 10/01/24 09:05 Doxycycline Hyclate 100 Mg Tablet PO 100 mg Q12HR RIAN Administration Empagliflozin 5 mg 09/30/24 09:00 10/01/24 09:05 Empagliflozin 5 Mg Tablet PO 5 mg DAILY RIAN Administration Enoxaparin Sodium 40 mg 10/01/24 09:00 10/01/24 09:39 Enoxaparin 40 Mg/0.4 Ml Syringe SUB-Q 40 mg DAILY RIAN Administration Furosemide 40 mg 10/02/24 09:00 Furosemide 40 Mg Tablet PO DAILY RIAN Glucagon 1 mg 09/29/24 23:18 Glucagon For Inj 1 Mg Vial IM PRN PRN Hypoglycemia Protocol Glucose 15 gm 09/29/24 23:18 Glucose Oral Gel 15 Gm Of Glucse In 37.5 Gm Tube PO PRN PRN Hypoglycemia Protocol Dextrose 1,000 mls @ 100 mls/hr 09/29/24 23:18 Dextrose 5% 1,000 Ml IVPB PRN PRN Hypoglycemia Protocol Dextrose 1,000 mls @ 125 mls/hr 10/01/24 14:00 10/01/24 14:04 Dextrose 10% IV CONT 125 mls/hr .Q8H RIAN Administration Insulin Aspart 4 - 8 units 09/30/24 08:00 10/01/24 11:54 Insulin Aspart (*Bkc) 100 Units/Ml SUB-Q Not Given TIDWM [facility] Protocol Insulin Aspart 1 - 3 units 09/30/24 21:00 09/30/24 19:53 Insulin Aspart (*Bkc) 100 Units/Ml SUB-Q Not Given HS [facility] Protocol Insulin Glargine 40 units 10/01/24 18:00 Insulin Glargine (*Bkc) 100 Units/Ml SUB-Q QPM [facility] Losartan Potassium 12.5 mg 10/02/24 09:00 Losartan Potassium 12.5 Mg Tablet PO DAILY RIAN Mupirocin 1 applic 09/30/24 09:30 10/01/24 12:33 Mupirocin 2% Oint 22 Gm Tube TOPICAL 1 applic TID RIAN Administration Ondansetron HCl 4 mg 09/29/24 18:48 Ondansetron Inj 4 Mg/2 Ml Vial IV PUSH Q4H PRN Nausea Radiology Results: ITS Impressions Chest X-Ray 09/29/24 15:20 IMPRESSION: Bilateral pleural effusions, left greater than right. Mild pulmonary vascular congestion. Abdomen/Pelvis CT 09/29/24 16:27 IMPRESSION: 1. Segment focal thickening of the green of the mid transverse colon. Differential includes incomplete bowel wall distention, focal colitis or mass. Direct visualization is recommended. 2. Small amount of nonspecific fluid and fat saturated scattered throughout the abdomen and pelvis. 3. Small bilateral pleural effusions. 4. Small consolidations in the lower lobes likely compressive atelectasis. 5. Small patchy opacities in the lower lungs. 6. Liver is heterogeneous possibly due to patchy focal fatty infiltration or hepatocellular disease. Other etiologies are possible. Consider a liver mass MRI for further assessment. Findings as above. Labs Labs: Laboratory Results - last 24 hr 09/30/24 09/30/24 10/01/24 15:23 19:48 03:22 WBC 7.4 RBC 4.85 Hgb 13.5 L Hct 41.7 L MCV 86.0 MCH 27.8 MCHC 32.4 RDW 14.4 Plt Count 337 MPV 9.7 Immature Gran % (Auto) 0.4 Neut % (Auto) 59.0 Lymph % (Auto) 27.6 [place] % (Auto) 11.4 H Eos % (Auto) 0.8 Baso % (Auto) 0.8 Lymph # (Auto) 2.04 [place] # (Auto) 0.8 H Eos # (Auto) 0.1 Baso # (Auto) 0.1 Abs Immat Gran (auto) 0.03 Absolute Neuts (auto) 4.4 Absolute Nucleated RBC 0.000 Nucleated RBC % 0.0 Sodium 140 Potassium 3.6 Chloride 105 Carbon Dioxide 29 Anion Gap 6 BUN 14 Creatinine 0.77 Estim Creat Clear Calc 125 Estimated GFR > 60 Glucose 47 L* POC Capillary Glucose 99 102 Calcium 8.8 Magnesium 2.0 Total Bilirubin 0.3 AST 36 ALT 52 H Alkaline Phosphatase 81 Total Protein 6.0 L Albumin 3.0 L 10/01/24 10/01/24 10/01/24 03:52 04:02 07:34 WBC RBC Hgb Hct MCV MCH MCHC RDW Plt Count MPV Immature Gran % (Auto) Neut % (Auto) Lymph % (Auto) [place] % (Auto) Eos % (Auto) Baso % (Auto) Lymph # (Auto) [place] # (Auto) Eos # (Auto) Baso # (Auto) Abs Immat Gran (auto) Absolute Neuts (auto) Absolute Nucleated RBC Nucleated RBC % Sodium Potassium Chloride Carbon Dioxide Anion Gap BUN Creatinine Estim Creat Clear Calc Estimated GFR Glucose POC Capillary Glucose 46 L* 117 H 79 Calcium Magnesium Total Bilirubin AST ALT Alkaline Phosphatase Total Protein Albumin 10/01/24 10/01/24 10/01/24 08:54 11:41 12:32 WBC RBC Hgb Hct MCV MCH MCHC RDW Plt Count MPV Immature Gran % (Auto) Neut % (Auto) Lymph % (Auto) [place] % (Auto) Eos % (Auto) Baso % (Auto) Lymph # (Auto) [place] # (Auto) Eos # (Auto) Baso # (Auto) Abs Immat Gran (auto) Absolute Neuts (auto) Absolute Nucleated RBC Nucleated RBC % Sodium Potassium Chloride Carbon Dioxide Anion Gap BUN Creatinine Estim Creat Clear Calc Estimated GFR Glucose POC Capillary Glucose 136 H 61 L 85 Calcium Magnesium Total Bilirubin AST ALT Alkaline Phosphatase Total Protein Albumin 10/01/24 10/01/24 13:02 13:46 WBC RBC Hgb Hct MCV MCH MCHC RDW Plt Count MPV Immature Gran % (Auto) Neut % (Auto) Lymph % (Auto) [place] % (Auto) Eos % (Auto) Baso % (Auto) Lymph # (Auto) [place] # (Auto) Eos # (Auto) Baso # (Auto) Abs Immat Gran (auto) Absolute Neuts (auto) Absolute Nucleated RBC Nucleated RBC % Sodium Potassium Chloride Carbon Dioxide Anion Gap BUN Creatinine Estim Creat Clear Calc Estimated GFR Glucose POC Capillary Glucose 66 76 Calcium Magnesium Total Bilirubin AST ALT Alkaline Phosphatase Total Protein Albumin Quality VTE Prophylaxis VTE prophylaxis: pharmacologic ordered (Lovenox 40 mg subQ daily.)
--- NOTE | 2024-10-01 15:46 | PM.PNCARD ---
Progress Note: A&P Assessment and Plan (1) CHF (congestive heart failure): Qualifiers: Heart failure chronicity: acute on chronic Heart failure type: unspecified Qualified Code(s): I50.9 - Heart failure, unspecified Code(s): I50.9 - Heart failure, unspecified Status: Acute (2) Elevated troponin: Code(s): R79.89 - Other specified abnormal findings of blood chemistry Status: Acute (3) Ulcer of right lower extremity: Qualifiers: Non-pressure ulcer stage: unspecified non-pressure ulcer stage Qualified Code(s): L97.919 - 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 lower leg with unspecified severity Code(s): L97.919 - 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 lower leg with unspecified severity Status: Acute (4) Lower abdominal pain: Code(s): R10.30 - Lower abdominal pain, unspecified Status: Acute (5) Type 2 diabetes mellitus with hyperglycemia, with long-term current use of insulin: Code(s): E11.65 - Type 2 diabetes mellitus with hyperglycemia; Z79.4 - [facility] (current) use of insulin Status: Acute Plan 1. Acute systolic HF --- NYHA II-III, Stage C 2. NSTEMI 3. DM 4. HTN 5. Autism TTE (09/30/2024) EF 40-45%, GD II DD., mild LVH, Mid ant-septal akinetic, apical septum, apical lateral, apical cap and mid ant-lat wall are hypokinetic. mild MR, mild TR, EKG (09/29/2024) NSR, cannot rule out prior AEMI and IWMI -[facility]/coronary angiographic to be done today to assess coronary anatomy. Suspect multivessel disease -continue diuresis -will initiate him on guideline directed medical therapy for heart failure -continue aspirin 81 mg once daily -increase atorvastatin to 80 mg once daily -further recommendations post left heart catheterization Subjective Date/time seen: 10/01/24 15:46 Interval history: Comfortable at bedside No chest pain or dyspnea -4.6 L Creatinine 0.77 Review of Systems Review of Systems: All systems reviewed & are unremarkable except as noted in HPI and below Exam Narrative: Weight 109.3 kg BMI 35.6 Const: General: cooperative, comfortable, no acute distress, well developed, alert and awake Orientation/consciousness: oriented to person, oriented to place, oriented to time and patient oriented x3 Other: Obese, no acute distress HENMT: Head: normal to inspection, normocephalic and atraumatic Mouth: Yes Normal oral and palatal mucosa present and Yes moist mucous membranes Other: Mucous membranes are moist, no oral pharyngeal erythema, crowded posterior oropharynx Eyes: General: appearance normal, both eyes and all related structures Conjunctivae: conjunctivae normal Sclera: sclerae normal Pupils: Equal, round and reactive pupils present Other: Pupils are equal and reactive, no scleral icterus, no conjunctival pallor Neck: Neck: normal visual inspection, supple and no JVD Carotids: normal carotid upstroke Other: Large neck circumference, no lymphadenopathy, no JVD Chest: Chest palpation & inspection: normal inspection of the chest Resp: Effort & Inspection: normal respiratory effort and able to speak in complete sentences Auscultation: clear to auscultation bilaterally, crackles and diminished lung sounds Other: Clear to auscultation bilaterally, no increased work of breathing Cardio: Jugular venous distension: no JVD Rate: regular rate Rhythm: regular rhythm Heart sounds: S1 normal heart sound present, S2 normal heart sound present and no murmurs Other: Regular rate, regular rhythm, 2+ bilateral radial pedal pulses, no JVD GI: Inspection: distended Auscultation: normal bowel sounds Rectal Exam: deferred Other: Distended, non tender, normoactive bowel sounds Skin: General skin exam: normal color and wounds noted Wounds: wounds noted Other: The irregularly shaped ulcer of the knee right lateral cummins with no surrounding erythema or evidence of infection, no drainage,, patient also has a smaller area of irritation the medial right ankle and the ER shallow ulceration on the is lateral or the left as well, he has a hematoma to the tip of the right great toe Neuro: General: oriented to person, oriented to place, oriented to time and patient oriented x3 Cranial nerves: Yes Equal, round and reactive pupils present Speech: normal speech Other: Alert oriented x4, speech is clear, no facial asymmetry, no localizing neurologic deficits noted during the course of casual conversation Extrem: General: normal to inspection, no clubbing, cyanosis or edema, edema and pedal edema Other: 2+ pitting edema of lower extremities up to the calf, no clubbing, no cyanosis, moves all extremities equally, ulcers as discussed above Psych: Appearance: grossly normal and well kempt Mental Status: mental status grossly normal Affect: normal affect Other: Unusual affect but overall all generally pleasant and cooperative, intact judgment and insight Objective Data Vital Signs Vital Signs: Vital Signs - 24 hr 09/30/24 16:00 09/30/24 16:00 09/30/24 18:00 Temperature Pulse Rate 94 98 Pulse Rate [Bilateral Radial Palpation] Respiratory Rate Blood Pressure Pulse Oximetry Oxygen Delivery Room Air 09/30/24 19:53 09/30/24 20:00 09/30/24 20:00 Temperature 36.8 C Pulse Rate 98 98 Pulse Rate [Bilateral Radial Palpation] Respiratory Rate 20 Blood Pressure 126/88 Pulse Oximetry 99 Oxygen Delivery Room Air 09/30/24 22:00 09/30/24 23:59 10/01/24 00:00 Temperature 36.7 C Pulse Rate 87 85 Pulse Rate [Bilateral Radial Palpation] Respiratory Rate 18 Blood Pressure 116/70 Pulse Oximetry 95 Oxygen Delivery Room Air 10/01/24 00:00 10/01/24 02:00 10/01/24 03:46 Temperature 36.4 C Pulse Rate 85 79 90 Pulse Rate [Bilateral Radial Palpation] Respiratory Rate 16 Blood Pressure 125/68 Pulse Oximetry 95 Oxygen Delivery 10/01/24 04:00 10/01/24 04:00 10/01/24 06:00 Temperature Pulse Rate 87 96 Pulse Rate [Bilateral Radial Palpation] Respiratory Rate Blood Pressure Pulse Oximetry Oxygen Delivery Room Air 10/01/24 07:56 10/01/24 08:00 10/01/24 08:00 Temperature 36.6 C Pulse Rate 89 Pulse Rate [Bilateral Radial Palpation] Respiratory Rate 18 Blood Pressure 148/94 H Pulse Oximetry 95 100 Oxygen Delivery Room Air Room Air 10/01/24 08:00 10/01/24 10:00 10/01/24 12:00 Temperature 36.5 C Pulse Rate 96 99 99 Pulse Rate [Bilateral Radial Palpation] Respiratory Rate 22 H Blood Pressure 131/85 Pulse Oximetry 100 Oxygen Delivery 10/01/24 12:00 10/01/24 12:00 10/01/24 15:30 Temperature Pulse Rate 100 Pulse Rate [Bilateral Radial Palpation] 96 Respiratory Rate Blood Pressure Pulse Oximetry Oxygen Delivery Room Air 10/01/24 15:30 Temperature Pulse Rate 96 Pulse Rate [Bilateral Radial Palpation] Respiratory Rate 16 Blood Pressure 148/95 H Pulse Oximetry 98 Oxygen Delivery Room Air Intake/Output Intake/Output: Intake & Output 09/28/24 09/29/24 09/30/24 10/01/24 23:59 23:59 23:59 23:59 Intake Total 500 994 Output Total 4600 2900 Balance -3304 -0984 Meds/Results Medications: Active Medications Generic Name Dose Route Start Last Admin Trade Name Freq PRN Reason Stop Dose Admin Aspirin 81 mg 09/30/24 11:00 10/01/24 09:05 Aspirin 81 Mg Enteric Tablet PO 81 mg QAM RIAN Administration Atorvastatin Calcium 80 mg 10/02/24 21:00 Atorvastatin 40 Mg Tablet PO DAILY RIAN Carvedilol 6.25 mg 10/01/24 21:00 Carvedilol 6.25 Mg Tablet PO Q12HR RIAN Dextrose 12.5 gm 09/29/24 23:18 10/01/24 13:07 Dextrose 50% 25 Gm/50 Ml Syringe IV PUSH 12.5 gm PRN PRN Administration Hypoglycemia Protocol Docusate Sodium 100 mg 09/30/24 10:14 09/30/24 11:59 Docusate Sodium 100 Mg Capsule PO 100 mg Q12H PRN Administration Constipation Doxycycline Hyclate 100 mg 09/30/24 11:00 10/01/24 09:05 Doxycycline Hyclate 100 Mg Tablet PO 100 mg Q12HR RIAN Administration Empagliflozin 5 mg 09/30/24 09:00 10/01/24 09:05 Empagliflozin 5 Mg Tablet PO 5 mg DAILY RIAN Administration Enoxaparin Sodium 40 mg 10/01/24 09:00 10/01/24 09:39 Enoxaparin 40 Mg/0.4 Ml Syringe SUB-Q 40 mg DAILY RIAN Administration Furosemide 40 mg 10/01/24 17:00 Furosemide Inj 40 Mg/4 Ml Vial IV PUSH BID RIAN Glucagon 1 mg 09/29/24 23:18 Glucagon For Inj 1 Mg Vial IM PRN PRN Hypoglycemia Protocol Glucose 15 gm 09/29/24 23:18 Glucose Oral Gel 15 Gm Of Glucse In 37.5 Gm Tube PO PRN PRN Hypoglycemia Protocol Dextrose 1,000 mls @ 100 mls/hr 09/29/24 23:18 Dextrose 5% 1,000 Ml IVPB PRN PRN Hypoglycemia Protocol Dextrose 1,000 mls @ 125 mls/hr 10/01/24 14:00 10/01/24 14:04 Dextrose 10% IV CONT 125 mls/hr .Q8H RIAN Administration Insulin Aspart 4 - 8 units 09/30/24 08:00 10/01/24 11:54 Insulin Aspart (*Bkc) 100 Units/Ml SUB-Q Not Given TIDWM [facility] Protocol Insulin Aspart 1 - 3 units 09/30/24 21:00 09/30/24 19:53 Insulin Aspart (*Bkc) 100 Units/Ml SUB-Q Not Given HS [facility] Protocol Insulin Glargine 40 units 10/01/24 18:00 Insulin Glargine (*Bkc) 100 Units/Ml SUB-Q QPM RIAN Losartan Potassium 12.5 mg 10/02/24 09:00 Losartan Potassium 12.5 Mg Tablet PO DAILY RIAN Mupirocin 1 applic 09/30/24 09:30 10/01/24 12:33 Mupirocin 2% Oint 22 Gm Tube TOPICAL 1 applic TID RIAN Administration Ondansetron HCl 4 mg 09/29/24 18:48 Ondansetron Inj 4 Mg/2 Ml Vial IV PUSH Q4H PRN Nausea Radiology Results: ITS Impressions Chest X-Ray 09/29/24 15:20 IMPRESSION: Bilateral pleural effusions, left greater than right. Mild pulmonary vascular congestion. Abdomen/Pelvis CT 09/29/24 16:27 IMPRESSION: 1. Segment focal thickening of the green of the mid transverse colon. Differential includes incomplete bowel wall distention, focal colitis or mass. Direct visualization is recommended. 2. Small amount of nonspecific fluid and fat saturated scattered throughout the abdomen and pelvis. 3. Small bilateral pleural effusions. 4. Small consolidations in the lower lobes likely compressive atelectasis. 5. Small patchy opacities in the lower lungs. 6. Liver is heterogeneous possibly due to patchy focal fatty infiltration or hepatocellular disease. Other etiologies are possible. Consider a liver mass MRI for further assessment. Findings as above. Labs Labs: Laboratory Results - last 24 hr 09/30/24 09/30/24 10/01/24 15:23 19:48 03:22 WBC 7.4 RBC 4.85 Hgb 13.5 L Hct 41.7 L MCV 86.0 MCH 27.8 MCHC 32.4 RDW 14.4 Plt Count 337 MPV 9.7 Immature Gran % (Auto) 0.4 Neut % (Auto) 59.0 Lymph % (Auto) 27.6 [place] % (Auto) 11.4 H Eos % (Auto) 0.8 Baso % (Auto) 0.8 Lymph # (Auto) 2.04 [place] # (Auto) 0.8 H Eos # (Auto) 0.1 Baso # (Auto) 0.1 Abs Immat Gran (auto) 0.03 Absolute Neuts (auto) 4.4 Absolute Nucleated RBC 0.000 Nucleated RBC % 0.0 Sodium 140 Potassium 3.6 Chloride 105 Carbon Dioxide 29 Anion Gap 6 BUN 14 Creatinine 0.77 Estim Creat Clear Calc 125 Estimated GFR > 60 Glucose 47 L* POC Capillary Glucose 99 102 Calcium 8.8 Magnesium 2.0 Total Bilirubin 0.3 AST 36 ALT 52 H Alkaline Phosphatase 81 Total Protein 6.0 L Albumin 3.0 L 10/01/24 10/01/24 10/01/24 03:52 04:02 07:34 WBC RBC Hgb Hct MCV MCH MCHC RDW Plt Count MPV Immature Gran % (Auto) Neut % (Auto) Lymph % (Auto) [place] % (Auto) Eos % (Auto) Baso % (Auto) Lymph # (Auto) [place] # (Auto) Eos # (Auto) Baso # (Auto) Abs Immat Gran (auto) Absolute Neuts (auto) Absolute Nucleated RBC Nucleated RBC % Sodium Potassium Chloride Carbon Dioxide Anion Gap BUN Creatinine Estim Creat Clear Calc Estimated GFR Glucose POC Capillary Glucose 46 L* 117 H 79 Calcium Magnesium Total Bilirubin AST ALT Alkaline Phosphatase Total Protein Albumin 10/01/24 10/01/24 10/01/24 08:54 11:41 12:32 WBC RBC Hgb Hct MCV MCH MCHC RDW Plt Count MPV Immature Gran % (Auto) Neut % (Auto) Lymph % (Auto) [place] % (Auto) Eos % (Auto) Baso % (Auto) Lymph # (Auto) [place] # (Auto) Eos # (Auto) Baso # (Auto) Abs Immat Gran (auto) Absolute Neuts (auto) Absolute Nucleated RBC Nucleated RBC % Sodium Potassium Chloride Carbon Dioxide Anion Gap BUN Creatinine Estim Creat Clear Calc Estimated GFR Glucose POC Capillary Glucose 136 H 61 L 85 Calcium Magnesium Total Bilirubin AST ALT Alkaline Phosphatase Total Protein Albumin 10/01/24 10/01/24 13:02 13:46 WBC RBC Hgb Hct MCV MCH MCHC RDW Plt Count MPV Immature Gran % (Auto) Neut % (Auto) Lymph % (Auto) [place] % (Auto) Eos % (Auto) Baso % (Auto) Lymph # (Auto) [place] # (Auto) Eos # (Auto) Baso # (Auto) Abs Immat Gran (auto) Absolute Neuts (auto) Absolute Nucleated RBC Nucleated RBC % Sodium Potassium Chloride Carbon Dioxide Anion Gap BUN Creatinine Estim Creat Clear Calc Estimated GFR Glucose POC Capillary Glucose 66 76 Calcium Magnesium Total Bilirubin AST ALT Alkaline Phosphatase Total Protein Albumin Imaging My impression: TTE (10/01/2024) 1. Left ventricular systolic function is mildly reduced, estimated at 40-45. 2. There is mildly increased left ventricular wall thickness. 3. The left ventricular diastolic function is grade II diastolic dysfunction. 4. The mid anteroseptal is akinetic. 5. The apical septum, apical lateral wall, apical inferior wall, apical cap, and mid anterior wall are hypokinetic. 6. There is mild mitral valve regurgitation. 7. There is mild tricuspid valve regurgitation. 8. No pulmonary hypertension, estimated pulmonary arterial systolic pressure is 24 mmHg. 9. Pleural effusion.
--- NOTE | 2024-10-01 15:56 | WPDCARDPROC ---
Cardiac Cath Procedure Note Date of procedure:: 10/01/24 Performing physician:: Moses Chua MD Indication:: NSTEMI Acute systolic heart failure Brief clinical history:: gentleman came in with acute systolic heart failure with mildly impaired LV systolic function Procedure Procedure performed:: Left heart catheterization Coronary angiography Sedation/Medication given:: Versed 1 mg Fentanyl 25 mcg Access site:: Right radial artery Estimated blood loss:: 2 cc Procedure note:: Informed consent signed and placed in the chart. Patient transferred to mini lab operator room. Prepped and draped in usual sterile fashion. 2% lidocaine injected subcutaneously in right wrist area. 22-gauge venipuncture catheter used to access the right radial artery under ultrasound guidance. 6-FR slender sheath placed in right radial artery. Nitroglycerine and Verapamil were given intraarterial through the sheath. Versacore wire advanced under fluoroscopy 5F FL 4 diagnostic catheter engaged Left Main Coronary Artery. 5F FR 4 diagnostic catheter engaged Right Coronary Artery Multiple orthogonal angiogram obtained and reviewed 5F Pigtail diagnostic catheter crossed aortic valve to obtain LVEDP, LV angiogram deferred. Hemostasis was achieved by application of TR band. Findings:: LEFT HEART CATHETERIZATION FINDINGS: 1. Left main: The left main coronary artery is patent without any significant obstructive disease. Left main is long vessel which divides into LAD, circ and OM is branches 2. Left anterior descending: Large caliber vessel which gives rise to a small-moderate caliber diagonal branches which reaches the apex. Mid LAD has a BUSINESS INTELLIGENCE MANAGER after the takeoff of the 1st diagonal and 2 small caliber septal district gauger branches. 3. Ramus: Small-moderate caliber vessel which is a branching vessel and reaches the apex. The superior division of the ramus has 70-80% stenosis of the inferior division as 80-90% stenosis 4. Left circumflex: The left circumflex artery small to moderate caliber vessel which gives rise to a small OM1. The circumflex has 30-40% stenosis 4. Right coronary artery: The RCA is the dominant vessel which divides into PDA and PLV branches. Prox RCA has 99%/subtotal occlusion 5. Left ventricle: A. End-diastolic pressure 40-42 mmHg. B. LV gram deferred. C. No significant gradient across aortic valve on catheter pullback. Conclusion:: 1. Multivessel disease with BUSINESS INTELLIGENCE MANAGER of mid LAD and subtotal occlusion of prox RCA 2. Elevated LVEDP Assessment and Plan Assessment and plan (1) CHF (congestive heart failure): Qualifiers: Heart failure chronicity: acute on chronic Heart failure type: unspecified Qualified Code(s): I50.9 - Heart failure, unspecified Code(s): I50.9 - Heart failure, unspecified Status: Acute (2) Elevated troponin: Code(s): R79.89 - Other specified abnormal findings of blood chemistry Status: Acute Plan -transfer to the floor -will need to be transferred out for CABG -continue aspirin 81 mg once daily -start Lipitor 80 mg once daily -right and and medical therapy to be initiated with carvedilol and losartan
--- NOTE | 2024-10-01 18:44 | PC.NURSE ---
Called Zee to give report and was asked to call back after [phone]. [phone] Room [id number]
--- NOTE | 2024-10-02 19:01 | PM.TDS ---
Transfer Discharge Sum: Prov Provider Date of admission: 09/29/24 18:48 Primary care physician: Roland Salmeron, Admitting clinician: Ivan Parker MD Consults: 09/30/24 Consult to Physician Routine Comment: Notified Steph Suero of consult Consulting Provider: Moses Chua Reason for consultation: Elevated trops Has provider been notified: Yes Wound/ET Consult Routine Reason for Consult:: Multiple open wounds to RLE. Wound/ET Consult Routine Reason for Consult:: Right lower extremity wound DS: Admitting Diagnosis Discharge Date 10/01/24 Admitting Diagnosis Abdominal and leg swelling DS: Discharge Diagnosis Discharge Diagnosis (1) CHF (congestive heart failure): Qualifiers: Heart failure chronicity: acute on chronic Heart failure type: unspecified Qualified Code(s): I50.9 - Heart failure, unspecified Code(s): I50.9 - Heart failure, unspecified Status: Acute Transfer Discharge Sum: Med Medications Active and Home Medications: Home Medications doxycycline hyclate 100 mg capsule 100 mg PO Q12H 09/29/24 [History Confirmed 09/29/24] insulin glargine 100 unit/mL subcutaneous solution (Lantus U-100 Insulin) 80 unit subcut QPM 09/29/24 [History Confirmed 09/29/24] metformin 1,000 mg tablet 1,000 mg PO DAILY 09/29/24 [History Confirmed 09/29/24] mupirocin 2 % topical ointment 1 applic topical TID 09/29/24 [History Confirmed 09/29/24] Transfer Discharge Sum: Hosp Hospital Course Hospital course: HPI per admitting provider on 09/29/24 49-year-old male with a past medical history of insulin-dependent diabetes mellitus, CHF, essential hypertension and prior lap band surgery who presented to the ER from home due to lower extremity edema, abdominal swelling and 30 lb weight gain in the last month. The patient reports that he keeps a close track of his weight since he had the gastric band procedure about 15 years ago. He reports that his weight usually runs around 215-220 lb. Over the last month despite in a changing his diet he has gained 30 lb. He reports that over the last week is subsequently noticed increasing lower extremity swelling. He reports that swelling a goes all the way up into his thighs and reports that his abdomen also feels bloated. He denies any shortness of breath or cough. He reports that he was diagnosed with CHF 11 years ago but he has not followed up with a divisional human resources director in many years. He is not on any diuretics. On review of the old electronic medical record system the patient's echocardiogram at that time demonstrated normal diastolic and systolic function but the patient's right ventricle was not well visualized. The patient does have diabetes that is poorly controlled. He only checks his blood sugar once in the morning. He reports that his glucoses range between 150 into the mid 200s. He does not know what his last A1c was. He denies any diagnosis of diabetic retinopathy neuropathy or nephropathy. However he does admit that he has been having foamy urine for quite some time he also has a distant history of heavy alcohol use but quit drinking alcohol when he became ill in 2013 with the last episode of ?CHF?. He reports that he does not drink at all now. He states that he did develop an area of ulcer infection on his right lower extremity a couple of weeks ago. It sounds like he may have developed the ulcer due to discomfort from his skin being tight and scratching at his legs. He denies any drainage from the area or increased warmth. He was prescribed doxycycline and Bactroban ointment as outpatient and just got them filled before coming to the ER. He had not taken a doses of the antibiotics. He denies any fevers or chills. He denies any nausea or vomiting. He denies known history of cirrhosis or liver disease. CT in the ER demonstrated changes that be consistent with hepatic steatosis. He does report some lower abdominal discomfort that he associates with just generalized so loading. He states that he usually has normally formed bowel movements but over the last few days has been having some harder stools that her ball like in nature. He denies any hematochezia or melena. Patient body habitus and posterior oropharynx leave him at risk for obstructive sleep apnea however he denies any history of snoring or daytime fatigue. Although it does sound like he does fall asleep in his recliner somewhat frequently. Chest x-ray in the ER demonstrated bilateral pleural effusions left greater than right and mild pulmonary vascular congestion. EKG demonstrated ST and T-wave abnormalities high lateral leads, inferior and anterior lateral infarct age indeterminate, incomplete left bundle-branch block with sinus tachycardia. Patient's initial troponin was elevated to 1.1 with repeat troponin profile flat. ECHo showed ef 40-45%, cardiology was consulted and patient underwnt Cardiac cath which showed triple vessel disease, thus he was transferred to higher level of care for CABG. WHile he was here he was on lasix 40mg bid IV. GI was also consulted for focal colonic wall thickening, evaluated and recommended outaptient follow up. Doxycycline was continued for lower extremities ulcer whcih was prescribed outpatient Patient was stable on transfer to higher level of care for CABG. Patient Condition: Stable Time Spent with Patient Time attestation: Total time spent providing and/or coordinating transfer services: DS: Data Data Completed and Pending Labs on day of discharge: Labs from last 24 hours 10/01/24 20:12 POC Capillary Glucose 106 H Preliminary micro results at discharge 09/29/24 16:09 - Preliminary Urine Clean Catch
== END 2024-10-01 20:50 | disposition short-term general hospital (02) | DRG 280 ==
LOC: ANHED 16:40 → ANHIMU 19:37
PROVIDERS: Internal Medicine; Internal Medicine Interventional Cardiology; Physician Assistant; Admitting Provider General Practice; Emergency Provider Student in an Organized Health Care Education/Training Program; PCP Family Medicine; Visit Provider Internal Medicine
PROC: 4A023N7 Measurement of Cardiac Sampling and Pressure, Left Heart, Percutaneous Approach (ICD-10-PCS; CPT 93452; principal; 2024-10-01 13:00)
DX: I21.4 Non-ST elevation (NSTEMI) myocardial infarction (principal); I50.23 Acute on chronic systolic (congestive) heart failure; I42.9 Cardiomyopathy, unspecified; L97.819 Non-pressure chronic ulcer of other part of right lower leg with unspecified severity; F84.0 Autistic disorder; I25.10 Atherosclerotic heart disease of native coronary artery without angina pectoris; I25.82 Chronic total occlusion of coronary artery; I11.0 Hypertensive heart disease with heart failure; E11.622 Type 2 diabetes mellitus with other skin ulcer; E11.9 Type 2 diabetes mellitus without complications; K59.00 Constipation, unspecified; K76.0 Fatty (change of) liver, not elsewhere classified; F10.21 Alcohol dependence, in remission; Z79.4 Long term (current) use of insulin; Z98.84 Bariatric surgery status
CPT/HCPCS: 36415; 71046; 74177; 80048; 80053; 80061; 81001; 82948; 83036; 83690; 83735; 83880; 84443; 84484; 85025; 85027; 85610; 85730; 87086; 93005; 93458; 96374; 96375; 99285; A9270; C1769; C1887; C1894; C8929; J1644; J1650; J1815; J1938; J2003; J2250; J2305; J3010; J3475; J3480; J7040; Q9957; Q9967

== ENCOUNTER 2025-01-29 14:00 | Outpatient (RCR) | payer OTHER, SELFPAY ==
--- NOTE | 2024-11-04 13:24 | OPREHPOC ---
Outpatient Therapy Plan of Care This is a Multidisciplinary Plan of Care that may contain components documented by all disciplines (PT, OT, and ST.) ST Problem 1 ST Problem #[address] Goal 1 Goal / Goal Update The patient will participate in home programming to improve carry over/generalization of skills to the home environment Target Visit [address] Problem #[address] Goal 1 Goal / Goal Update Cognition: 1. The patient will recall complex paragraph length information 90%. 2. The patient will complete complex thought organization activities for functional material with 85% and minimal cues 3. The patient will processing auditory sentence and paragraph length information with 7-10 seconds with 90% accuracy ST Goal 1 Goal / Goal Update Visual Inattention: 1. The patient will complete visual scanning for written information sentence and paragraph length with 90% 2. The patient will complete functional unstructured visual scanning for applications, ads , etc. with 90%
--- NOTE | 2024-11-04 13:24 | STOPEVAL1 ---
Assessment and note entered by Yaahira Hein, BIOMEDICAL ENGINEERING PROFESSOR Evaluation Information Assessment Status Evaluation Assessment Status Evaluation Diagnosis Right MCA Infarct Subjective Information The patient is a 49 year old male her recently suffered a Right MCA infarct. He received speech services while at the [facility]. he has been referred for outpatient speech therapy services to address remaining cognitive and visual inattention deficits. He is accompanied by is mother whom he lives. 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 Per his mother and his reports the greatest concerns or his left neglect, processing, and general ability to due daily activities. Reported Pain Level Pain Score 0: Self Report Pain Score 0: Self Report Assessment ST Clinical Summary The patient is a 49 year old male her recently suffered a Right MCA infarct. He received speech services while at the [facility]. he has been referred for outpatient speech therapy services to address remaining cognitive and visual inattention deficits. He is accompanied by is mother whom he lives. 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 Per his mother and his reports the greatest concerns or his left neglect, processing, and general ability to due daily activities. The patient was administered the RIPA (Ross Information Processing Assessment) and portions of the [facility] Cognitive Evaluation. Results were as follows for the RIPA subtests given: Immediate Memory (25) 83%, Temporal Orientation (30) 100%, Spatial Orientation (30) 100%, Problem Solving and Abstract Reasoning (30) 100%, Organization (27) 90%, Auditory Processing and Retention (30) 100% Results for the [facility] Cognitive Evaluation subtests are as follows: Complex Problem Solving 100% Thought Organization 100%, Functional Math 100% Reading 80 % simple information due to visual inattention. Results of the evaluation were reviewed with the patient and his mother. Recommending outpatient speech therapy services 2x a week x 12 visits to include Memory recall, Timeliness of auditory processing, complex thought organization, and visual inattention for lengthy written information and unstructured visual scanning. Plan of Care Interventions Treatment of Language,Treatment for Cognitive Function ST Services Indicated Yes Treatment Frequency and 2x a week x 12 visits. Duration These treatments will address the objective and functional deficits as defined above. The patient will be advanced safely and appropriately in order for the patient to progress towards his/her prior level of function. Additional exercises will be introduced and as well as a comprehensive home exercise program upon discharge, if needed, ?to ensure carryover of functional gains achieved in the clinic. This treatment plan has been reviewed and agreement upon by the patient.
--- NOTE | 2024-11-04 15:21 | OTOPEVAL1 ---
Assessment and note entered by Dilcia Mario OT Evaluation Information Assessment Status Evaluation Assessment Status Evaluation Diagnosis CVA ICD-10 Condition Codes (OT) Generalized muscle weakness M62.81 Onset 10/11 Subjective Information Pt. reports having had CVA on 10/11/24 after having CABG, affecting pt.'s L side. Pt. 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 Pt. now uses walker, continues to live with his parents, has a suite in the basement where there is a stairlift. Pt. has been living on main floor of house, since returning from rehab, but would like to return to living in basement and being able to carry items up and down the stairs. Pt. reports he has return to independence in most ADLs since return home, needs assistance for set up clothes due to balance. Pt. would like to return to IADLs including cooking, grocery shopping, and return to meet-ups which are social groups activities and outings. Pt. presents with mother who states that his visual deficits, L sided. Pt. reports he has level one Autism. Reported Pain Level Pain Score 0: Self Report Pain Score 0: Self Report Assessment OT Clinical Summary Pt. 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 Pt. went to acute inpatient rehab for 15 days, and returned home 3 days ago. Pt. presents with residual L sided weakness and limitations in coordination and fine motor dexterity, also complicated previous L hand injuries including chronic numbness in 1st and 2nd fingers due to frostbite injury. Pt. also reports L visual deficits, but demonstrated adequate ability to complete visual scanning techniques during screeners. Pt. will benefit from skilled OT services including therapeutic exercises, therapeutic activities, neuro re-education, activity modifications, and overall safety training and awareness to facilitate return to greatest level of function. Plan of Care Interventions Therapeutic Exercise,Neuro Re-education, Therapeutic Activities,Cognitive Function,Sensory Integrative Techniques,Self-Care/Home Management, Visual/Perceptual Retraining OT Services Indicated Yes Treatment Frequency and 3x week/ 12 visits Duration These treatments will address the objective and functional deficits as defined above. The patient will be advanced safely and appropriately in order for the patient to progress towards his/her prior level of function. Additional exercises will be introduced and as well as a comprehensive home exercise program upon discharge, if needed, ?to ensure carryover of functional gains achieved in the clinic. This treatment plan has been reviewed and agreement upon by the patient.
--- NOTE | 2024-11-04 15:22 | OPREHPOC ---
Outpatient Therapy Plan of Care This is a Multidisciplinary Plan of Care that may contain components documented by all disciplines (PT, OT, and ST.) OT Problem 1 OT Problem #1 Knowledge Deficit OT Goal 1 Goal / Goal Update Pt. will demonstrate independence in HEP Target Visit 12 OT Problem 2 OT Problem #2 Impaired Coordination OT Goal 1 Goal / Goal Update Pt. will demonstrate increased bilateral coordination as demonstrated by completing 9-hole peg test <45 seconds on R and < 90 seconds on L Target Visit 12 OT Problem 3 OT Problem #3 Impaired Balance OT Goal 1 Goal / Goal Update Pt. will demonstrate ability to perform 15 minutes of dynamic standing balance activities without rest to support increased ability to participate in IADLs including cooking, and community social outings Target Visit 12 OT Problem 4 OT Problem #4 Impaired Strength OT Goal 1 Goal / Goal Update Pt. will demonstrate increased gross L UE strength to 65 lbs Target Visit [address] Problem #[address] Goal 1 Goal / Goal Update The patient will participate in home programming to improve carry over/generalization of skills to the home environment Target Visit [address] Problem #[address] Goal 1 Goal / Goal Update Cognition: 1. The patient will recall complex paragraph length information 90%. 2. The patietn will complete complex thought organization activities for functional material with 855 and minimal cues 3. The patient will processing auditory sentence and paragraph length information with 7-10 seconds with 90% accuracy ST Goal 1 Goal / Goal Update Visual Inattention: 1. The patietn will complete visual scanning for written information sentence and paragraph length with 90% 2. The patietn will complete functional unstructured visual scanning for applications, ads , etc. with 90%
--- NOTE | 2024-11-19 16:37 | OPREHPOC ---
Outpatient Therapy Plan of Care This is a Multidisciplinary Plan of Care that may contain components documented by all disciplines (PT, OT, and ST.) PT Problem 1 PT Problem #1 Knowledge Deficit PT Goal 1 Goal / Goal Update *independent with HEP Target Visit 10 PT Problem 2 PT Problem #2 Impaired Strength PT Goal 1 Goal / Goal Update increase LE strength to improve mobility 1* gross strength of R and L LE 4+/5 single leg standing with good stability x 10 seconds 2* R 3* L 4* sit/stand without use of UE's x 5 reps Target Visit 10 PT Problem 3 PT Problem #3 Impaired Balance PT Goal 1 Goal / Goal Update improve balance and mobility skills, to return to prior level of independent functioning 1* laws balance score of 52/56 2* 2 minute walking test distance of 425' without walker 3* up/down 12 steps with 1 hand railing, independent 4* 5 reps sit/stand time of 16 seconds Target Visit 10 OT Problem 1 OT Problem #1 Knowledge Deficit OT Goal 1 Goal / Goal Update Pt. will demonstrate independence in HEP Target Visit 12 OT Problem 2 OT Problem #2 Impaired Coordination OT Goal 1 Goal / Goal Update Pt. will demonstrate increased bilateral coordination as demonstrated by completing 9-hole peg test <45 seconds on R and < 90 seconds on L Target Visit 12 OT Problem 3 OT Problem #3 Impaired Balance OT Goal 1 Goal / Goal Update Pt. will demonstrate ability to perform 15 minutes of dynamic standing balance activities without rest to support increased ability to participate in IADLs including cooking, and community social outings Target Visit 12 OT Problem 4 OT Problem #4 Impaired Strength OT Goal 1 Goal / Goal Update Pt. will demonstrate increased gross L UE strength to 65 lbs Target Visit [address] Problem #[address] Goal 1 Goal / Goal Update The patient will participate in home programming to improve carry over/generalization of skills to the home environment Target Visit [address] Problem #[address] Goal 1 Goal / Goal Update Cognition: 1. The patient will recall complex paragraph length information 90%. 2. The patietn will complete complex thought organization activities for functional material with 855 and minimal cues 3. The patient will processing auditory sentence and paragraph length information with 7-10 seconds with 90% accuracy ST Goal 1 Goal / Goal Update Visual Inattention: 1. The patietn will complete visual scanning for written information sentence and paragraph length with 90% 2. The patietn will complete functional unstructured visual scanning for applications, ads , etc. with 90%
--- NOTE | 2024-11-19 16:37 | PTOPEVAL1 ---
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 He has completed in pt rehab, using a wheeled walker for gait. Also has OT and Speech therapy services. Prior level of functioning- independent with mobility, working and lives at his parents' in a basement apartment. Precautions: vertigo, diabetes, sternal precautions: no lifting over 10# and no overhead reaching. is on the autism spectrum. With the evaluation: use of wheeled walker and cane for 2 minute walking test, both at 300' distance; Elliott balance score of 38/56; 5 reps sit/stand with use of 1 UE in 22 seconds; on 4 steps requires one hand railing and the cane. He is very motivated to return to work and increase his mobility. His Mom, Nimo is very supportive. 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 Plan of Care Interventions Gait Training,Neuro Re-education,Patient/Caregiver Education,Therapeutic Activities,Therapeutic Exercise PT Services Indicated Yes Treatment Frequency and 2x/wk for 10 visits Duration These treatments will address the objective and functional deficits as defined above. The patient will be advanced safely and appropriately in order for the patient to progress towards his/her prior level of function. Additional exercises will be introduced and as well as a comprehensive home exercise program upon discharge, if needed, ?to ensure carryover of functional gains achieved in the clinic. This treatment plan has been reviewed and agreement upon by the patient.
--- NOTE | 2024-12-15 16:13 | OTOPPROG ---
Assessment and note entered by Dilcia Mario OT Progress Information Assessment Status Progress Diagnosis CVA ICD-10 Condition Codes (OT) Generalized muscle weakness M62.81 Onset 10/11 Subjective Information Pt. reports he thinks his progress is going great!. Pt. reports he was able to go to an estate sale a couple of weeks ago, but it was difficult to get up stairs. Pt. reports he still doesn't use stairs if he doesn't have to, having previously lived in basement and was capable of carrying things up and down. Pt. reports she is now setting up his own clothing. Pt. reports he is participating in more outings including [employer], library and museum tours, restaurants, and shopping. Pt. state I even think taking showers, my balance is better and I don't have to hold on to the railing. Pt. reports he has been helping his parents with medication organization, including putting each pill into pill organizer. Assessment OT Clinical Summary Pt. 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 Pt. went to acute inpatient rehab for 15 days, and returned home 3 days ago. Pt. displays increasing L UE strength > 18 lbs and decreasing 9 hole peg test time by 75 seconds, while continuing to demonstrate some limitations in fine and gross motor coordination and fine motor dexterity, also complicated previous L hand injuries including chronic numbness in 1st and 2nd fingers due to frostbite injury, as well as instability in dynamic standing balance activities. Pt. also displays difficulty with L visual neglect during activities, but displays consistent follow through with visual scanning after cued, if not fatigued from prolonged activity. Pt. will benefit from skilled OT services including therapeutic exercises, therapeutic activities, neuro re- education, activity modifications, and overall safety training and awareness to facilitate return to greatest level of function. Plan of Care Interventions Therapeutic Exercise,Neuro Re-education, Therapeutic Activities,Cognitive Function,Sensory Integrative Techniques,Self-Care/Home Management, Visual/Perceptual Retraining OT Services Indicated Yes Treatment Frequency and 3x week/ 10 visits Duration These treatments will address the objective and functional deficits as defined above. The patient will be advanced safely and appropriately in order for the patient to progress towards his/her prior level of function. Additional exercises will be introduced and as well as a comprehensive home exercise program upon discharge, if needed, ?to ensure carryover of functional gains achieved in the clinic. This treatment plan has been reviewed and agreement upon by the patient.
--- NOTE | 2024-12-15 16:37 | OPREHPOC ---
Outpatient Therapy Plan of Care This is a Multidisciplinary Plan of Care that may contain components documented by all disciplines (PT, OT, and ST.) PT Problem 1 PT Problem #1 Knowledge Deficit PT Goal 1 Goal / Goal Update *independent with HEP Target Visit 10 PT Problem 2 PT Problem #2 Impaired Strength PT Goal 1 Goal / Goal Update increase LE strength to improve mobility 1* gross strength of R and L LE 4+/5 single leg standing with good stability x 10 seconds 2* R 3* L 4* sit/stand without use of UE's x 5 reps Target Visit 10 PT Problem 3 PT Problem #3 Impaired Balance PT Goal 1 Goal / Goal Update improve balance and mobility skills, to return to prior level of independent functioning 1* laws balance score of 52/56 2* 2 minute walking test distance of 425' without walker 3* up/down 12 steps with 1 hand railing, independent 4* 5 reps sit/stand time of 16 seconds Target Visit 10 OT Problem 1 OT Problem #1 Knowledge Deficit OT Goal 1 Goal / Goal Update Pt. will demonstrate independence in HEP Progress 12/15/24 1) partially met, continue Target Visit 22 Progress Partially Met OT Problem 2 OT Problem #2 Edema OT Goal 1 Goal / Goal Update Pt. will demonstrate increased bilateral coordination as demonstrated by completing 9-hole peg test <45 seconds on R and < 90 seconds on L Progress 12/15/24 1) goal met, update goal Update: Pt. will demonstrate increased bilateral coordination as demonstrated by completing 9-hole peg test <45 seconds on R and < 65 seconds on L , without dropping pegs during test Target Visit 22 Progress Met OT Problem 3 OT Problem #3 Impaired Balance OT Goal 1 Goal / Goal Update Pt. will demonstrate ability to perform 15 minutes of dynamic standing balance activities without rest to support increased ability to participate in IADLs including cooking, and community social outings Progress 12/15/24 1) partially met, continue goal; pt. reporting increased dynamic standing balance with functional activity outside of treatment, but often displays increasing fatigue and instability, using R side for compensation Target Visit 22 Progress Partially Met OT Problem 4 OT Problem #4 Impaired Strength OT Goal 1 Goal / Goal Update Pt. will demonstrate increased gross L UE strength to 65 lbs Progress 12/15/24 1) Goal met, pt. demonstrates >64 lbs of buffer chrome strength in L UE, update goal Updated Goal: Pt. will demonstrate increased gross L UE strength to 70 lbs and R UE to 85 Up Target Visit [address] Problem 1 ST Problem #[address] Goal 1 Goal / Goal Update The patient will participate in home programming to improve carry over/generalization of skills to the home environment Target Visit [address] Problem #[address] Goal 1 Goal / Goal Update Cognition: 1. The patient will recall complex paragraph length information 90%. 2. The patietn will complete complex thought organization activities for functional material with 855 and minimal cues 3. The patient will processing auditory sentence and paragraph length information with 7-10 seconds with 90% accuracy ST Goal 1 Goal / Goal Update Visual Inattention: 1. The patietn will complete visual scanning for written information sentence and paragraph length with 90% 2. The patietn will complete functional unstructured visual scanning for applications, ads , etc. with 90%
--- NOTE | 2024-12-22 13:49 | STOPEVAL1 ---
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 He received speech services while at the [facility]. he has been referred for outpatient speech therapy services to address remaining cognitive and visual inattention deficits. He is accompanied by is mother whom he lives. 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 Per his mother and his reports the greatest concerns or his left neglect, processing, and general ability to due daily activities. The patient was administered the RIPA (Ross Information Processing Assessment) and portions of the [facility] Cognitive Evaluation. Results were as follows for the RIPA subtests given: Immediate Memory (25) 83%, Temporal Orientation (30) 100%, Spatial Orientation (30) 100%, Problem Solving and Abstract Reasoning (30) 100%, Organization (27) 90%, Auditory Processing and Retention (30) 100% Results for the [facility] Cognitive Evaluation subtests are as follows: Complex Problem Solving 100% Thought Organization 100%, Functional Math 100% Reading 80 % simple information due to visual inattention. Results of the evaluation were reviewed with the patient and his mother. Recommending outpatient speech therapy services 2x a week x 12 visits to include Memory recall, Timeliness of auditory processing, complex thought organization, and visual inattention for lengthy written information and unstructured visual scanning. Re-Evaluation 12/22/24: The patient was re-administered the RIPA (Ross Information Processing Assessment) and portions of the [facility] Cognitive Evaluation. Results were as follows for the RIPA subtests given: Immediate Memory (25) 90%(improved from 83% ), Temporal Orientation (30) 100%, Spatial Orientation (30) 100%, Problem Solving and Abstract Reasoning (30) 100%, Organization (27) 100%(Improved from 90%), Auditory Processing and Retention (30) 100% Results for the [facility] Cognitive Evaluation subtests are as follows: Complex Problem Solving 100% Thought Organization 100%, Functional Math 100% Reading 80 % (95% simple information) due to visual inattention. Results indicating a noted improvement in immediate recall of moderately complex material, improved ability to attend to a structured task and process auditory information more timely. Improved visual scanning for written information in sentence and paragraph form as well as simple unstructured scanning items (such sales Ads). The patient has completed home activates with improved carry over of strategies. Recommend outpatient speech therapy services 1x a week for 4 visits to address divided attention, delayed memory recall, and complex unstructured visual scanning to include the left field. Plan of Care Interventions Treatment of Language ST Services Indicated Yes Treatment Frequency and 1x a week x 4 visits. Duration These treatments will address the objective and functional deficits as defined above. The patient will be advanced safely and appropriately in order for the patient to progress towards his/her prior level of function. Additional exercises will be introduced and as well as a comprehensive home exercise program upon discharge, if needed, ?to ensure carryover of functional gains achieved in the clinic. This treatment plan has been reviewed and agreement upon by the patient.
--- NOTE | 2024-12-22 13:54 | OPREHPOC ---
Outpatient Therapy Plan of Care This is a Multidisciplinary Plan of Care that may contain components documented by all disciplines (PT, OT, and ST.) PT Problem 1 PT Problem #1 Knowledge Deficit PT Goal 1 Goal / Goal Update *independent with HEP Target Visit 10 PT Problem 2 PT Problem #2 Impaired Strength PT Goal 1 Goal / Goal Update increase LE strength to improve mobility 1* gross strength of R and L LE 4+/5 single leg standing with good stability x 10 seconds 2* R 3* L 4* sit/stand without use of UE's x 5 reps Target Visit 10 PT Problem 3 PT Problem #3 Impaired Balance PT Goal 1 Goal / Goal Update improve balance and mobility skills, to return to prior level of independent functioning 1* laws balance score of 52/56 2* 2 minute walking test distance of 425' without walker 3* up/down 12 steps with 1 hand railing, independent 4* 5 reps sit/stand time of 16 seconds Target Visit 10 OT Problem 1 OT Problem #1 Knowledge Deficit OT Goal 1 Goal / Goal Update Pt. will demonstrate independence in HEP Progress 12/15/24 1) partially met, continue Target Visit 22 Progress Partially Met OT Problem 2 OT Problem #2 Edema OT Goal 1 Goal / Goal Update Pt. will demonstrate increased bilateral coordination as demonstrated by completing 9-hole peg test <45 seconds on R and < 90 seconds on L Progress 12/15/24 1) goal met, update goal Update: Pt. will demonstrate increased bilateral coordination as demonstrated by completing 9-hole peg test <45 seconds on R and < 65 seconds on L , without dropping pegs during test Target Visit 22 Progress Met OT Problem 3 OT Problem #3 Impaired Balance OT Goal 1 Goal / Goal Update Pt. will demonstrate ability to perform 15 minutes of dynamic standing balance activities without rest to support increased ability to participate in IADLs including cooking, and community social outings Progress 12/15/24 1) partially met, continue goal; pt. reporting increased dynamic standing balance with functional activity outside of treatment, but often displays increasing fatigue and instability, using R side for compensation Target Visit 22 Progress Partially Met OT Problem 4 OT Problem #4 Impaired Strength OT Goal 1 Goal / Goal Update Pt. will demonstrate increased gross L UE strength to 65 lbs Progress 12/15/24 1) Goal met, pt. demonstrates >64 lbs of oil driller strength in L UE, update goal Updated Goal: Pt. will demonstrate increased gross L UE strength to 70 lbs and R UE to 85 Up Target Visit [address] Problem 1 ST Problem #[address] Goal 1 Goal / Goal Update The patient will participate in home programming to improve carry over/generalization of skills to the home environment Update 12/22/24: MET: Completing HEP and carrying over strategies. Target Visit [address] Problem 2 ST Problem #[address] Goal 1 Goal / Goal Update Cognition: 1. The patient will recall complex paragraph length information 90% Update 12/22/14: MET: Recall paragraph length information, moderately complexity, 3 details, presented auditorily 90%. 2. The patient will complete complex thought organization activities for functional material with 85% and minimal cues Update 12/22/24: MET: Completing complex thought organization 90% no cues. 3. The patient will processing auditory sentence and paragraph length information with 7-10 seconds with 90% accuracy Update 12/22/24: MET: Completing auditory processing lengthy information within 7-10 seconds 90% accuracy. Target Visit [address] Goal 2 Goal / Goal Update Update Goals 12/22/24 1. The patient will recall complex paragraph length information presented in written form 90% accuracy and minimal cues. 2. The patient will complete divided attention tasks with 85% accuracy and minimal cues. Target Visit 4 ST Goal 1 Goal / Goal Update Visual Inattention: 1. The patient will complete visual scanning for written information sentence and paragraph length with 90% Update 12/22/24: MET: Able to canales written simple paragraph length information with 90% accuracy 2. The patient will complete functional unstructured visual scanning for applications, ads , etc. with 90% Update 12/22/24: Met the patient is completing simple scanning of short ads or applications 90% Target Visit [address] Goal 2 Goal / Goal Update Updated Goals 12/22/24 1. The patient will complete visual scanning for unstructured lengthy/complex functional written material (ADs, telephone book, TV guide, menus, etc.) with 90% Target Visit 4
--- NOTE | 2024-12-22 14:36 | OPREHPOC ---
Outpatient Therapy Plan of Care This is a Multidisciplinary Plan of Care that may contain components documented by all disciplines (PT, OT, and ST.) PT Problem 1 PT Problem #1 Knowledge Deficit PT Goal 1 Goal / Goal Update *independent with HEP 12-22-24 progress goal met continue to progress education and HEP Target Visit 18 PT Problem 2 PT Problem #2 Impaired Strength PT Goal 1 Goal / Goal Update increase LE strength to improve mobility 1* gross strength of R and L LE 4+/5 single leg standing with good stability x 10 seconds 2* R 3* L 4* sit/stand without use of UE's x 5 reps 12-22-24 progress goals not met; improved with #3 to 3 seconds continue towards goals Target Visit 18 PT Problem 3 PT Problem #3 Impaired Balance PT Goal 1 Goal / Goal Update improve balance and mobility skills, to return to prior level of independent functioning 1* laws balance score of 52/56 2* 2 minute walking test distance of 425' without walker 3* up/down 12 steps with 1 hand railing, independent 4* 5 reps sit/stand time of 16 seconds 12-22-24 progress goals not met; improved with #1 to 45/56; #2 to 320'; #4 to 21 seconds continue towards goals: ADD: work simulated tasks: without loss of balance , 3x: *5 walking 20' and carrying 10# in one hand *6 lifting with one hand 5# weight off floor *7 lifting with one hand 5# and placing it shoulder height Target Visit 18 OT Problem 1 OT Problem #1 Knowledge Deficit OT Goal 1 Goal / Goal Update Pt. will demonstrate independence in HEP Progress 12/15/24 1) partially met, continue Target Visit 22 Progress Partially Met OT Problem 2 OT Problem #2 Edema OT Goal 1 Goal / Goal Update Pt. will demonstrate increased bilateral coordination as demonstrated by completing 9-hole peg test <45 seconds on R and < 90 seconds on L Progress 12/15/24 1) goal met, update goal Update: Pt. will demonstrate increased bilateral coordination as demonstrated by completing 9-hole peg test <45 seconds on R and < 65 seconds on L , without dropping pegs during test Target Visit 22 Progress Met OT Problem 3 OT Problem #3 Impaired Balance OT Goal 1 Goal / Goal Update Pt. will demonstrate ability to perform 15 minutes of dynamic standing balance activities without rest to support increased ability to participate in IADLs including cooking, and community social outings Progress 12/15/24 1) partially met, continue goal; pt. reporting increased dynamic standing balance with functional activity outside of treatment, but often displays increasing fatigue and instability, using R side for compensation Target Visit 22 Progress Partially Met OT Problem 4 OT Problem #4 Impaired Strength OT Goal 1 Goal / Goal Update Pt. will demonstrate increased gross L UE strength to 65 lbs Progress 12/15/24 1) Goal met, pt. demonstrates >64 lbs of oven tender bagels strength in L UE, update goal Updated Goal: Pt. will demonstrate increased gross L UE strength to 70 lbs and R UE to 85 Up Target Visit [address] Problem 1 ST Problem #[address] Goal 1 Goal / Goal Update The patient will participate in home programming to improve carry over/generalization of skills to the home environment Update 12/22/24: MET: Completing HEP and carrying over strategies. Target Visit [address] Problem 2 ST Problem #[address] Goal 1 Goal / Goal Update Cognition: 1. The patient will recall complex paragraph length information 90% Update 12/22/14: MET: Recall paragraph length information, moderately complexity, 3 details, presented auditorily 90%. 2. The patient will complete complex thought organization activities for functional material with 85% and minimal cues Update 12/22/24: MET: Completing complex thought organization 90% no cues. 3. The patient will processing auditory sentence and paragraph length information with 7-10 seconds with 90% accuracy Update 12/22/24: MET: Completing auditory processing lengthy information within 7-10 seconds 90% accuracy. Target Visit [address] Goal 2 Goal / Goal Update Update Goals 12/22/24 1. The patient will recall complex paragraph length information presented in written form 90% accuracy and minimal cues. 2. The patient will complete divided attention tasks with 85% accuracy and minimal cues. Target Visit 4 ST Goal 1 Goal / Goal Update Visual Inattention: 1. The patient will complete visual scanning for written information sentence and paragraph length with 90% Update 12/22/24: MET: Able to canales written simple paragraph length information with 90% accuracy 2. The patient will complete functional unstructured visual scanning for applications, ads , etc. with 90% Update 12/22/24: Met the patient is completing simple scanning of short ads or applications 90% Target Visit [address] Goal 2 Goal / Goal Update Updated Goals 12/22/24 1. The patient will complete visual scanning for unstructured lengthy/complex functional written material (ADs, telephone book, TV guide, menus, etc.) with 90% Target Visit 4
--- NOTE | 2024-12-22 14:36 | PTOPPROG ---
Assessment and note entered by Lauren Moreno, PT Assessment Status Progress ICD-10 Condition Codes (PT) Difficulty Walking R26.2,Abnormalities of gait and mobility R26.9 Other ICD-10 Condition Codes ( CABG, CVA with L neglect PT) Onset 10-11-24 Subjective Information doing better, walking better; was able to get on/ off the ground to crawl behind the couch to get my phone that fell out of my pocket; in the house, do not always use the cane; have had 2 falls since starting therapy; is doing the exercises at home; want to get balance better to go back to work. Assessment PT Clinical Summary Dillon has received 10 PT visits. Since starting therapy, he has had 2 falls due to loss of balance with walking. With today's assessment: sit/stand transfer requires 1 UE use; 5 reps sit/stand time of 21 seconds; 2 minute walking test distance of 320' with cane; Elliott balance score of 45/56--issues with with eyes closed, single leg standing activities; on stairs, requires cane and one hand railing; at home, the basement has a chair lift; transfer sitting/floor with CGA for safety, using UE on mat to assist transfer. Education for HEP, gait training and safety with mobility. The goals were partially achieved. Continue PT to further improve standing balance and LE strength. Progression of HEP and balance activities. Plan of Care Interventions Gait Training,Neuro Re-education,Patient/Caregiver Education,Therapeutic Activities,Therapeutic Exercise PT Services Indicated Yes Treatment Frequency and 2x/wk for 8 visits Duration These treatments will address the objective and functional deficits as defined above. The patient will be advanced safely and appropriately in order for the patient to progress towards his/her prior level of function. Additional exercises will be introduced and as well as a comprehensive home exercise program upon discharge, if needed, ?to ensure carryover of functional gains achieved in the clinic. This treatment plan has been reviewed and agreement upon by the patient.
--- NOTE | 2025-01-23 11:53 | STOPDC ---
Assessment and note entered by Yahaira Hein, DELINQUENT NOTICE MACHINE OPERATOR Evaluation Information Assessment Status Discharge Reported Pain Level Pain Score 0: Self Report Assessment ST Clinical Summary Initial Evaluation: The patient is a 49 year old male her recently suffered a Right MCA infarct. He received speech services while at the [facility]. he has been referred for outpatient speech therapy services to address remaining cognitive and visual inattention deficits. He is accompanied by is mother whom he lives. 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 Per his mother and his reports the greatest concerns or his left neglect, processing, and general ability to due daily activities. The patient was administered the RIPA (Ross Information Processing Assessment) and portions of the [facility] Cognitive Evaluation. Results were as follows for the RIPA subtests given: Immediate Memory (25) 83%, Temporal Orientation (30) 100%, Spatial Orientation (30) 100%, Problem Solving and Abstract Reasoning (30) 100%, Organization (27) 90%, Auditory Processing and Retention (30) 100% Results for the [facility] Cognitive Evaluation subtests are as follows: Complex Problem Solving 100% Thought Organization 100%, Functional Math 100% Reading 80 % simple information due to visual inattention. Results of the evaluation were reviewed with the patient and his mother. Recommending outpatient speech therapy services 2x a week x 12 visits to include Memory recall, Timeliness of auditory processing, complex thought organization, and visual inattention for lengthy written information and unstructured visual scanning. Re-Evaluation 12/22/24: The patient was re-administered the RIPA (Ross Information Processing Assessment) and portions of the [facility] Cognitive Evaluation. Results were as follows for the RIPA subtests given: Immediate Memory (25) 90%(improved from 83% ), Temporal Orientation (30) 100%, Spatial Orientation (30) 100%, Problem Solving and Abstract Reasoning (30) 100%, Organization (27) 100%(Improved from 90%), Auditory Processing and Retention (30) 100% Results for the [facility] Cognitive Evaluation subtests are as follows: Complex Problem Solving 100% Thought Organization 100%, Functional Math 100% Reading 80 % (95% simple information) due to visual inattention. Results indicating a noted improvement in immediate recall of moderately complex material, improved ability to attend to a structured task and process auditory information more timely. Improved visual scanning for written information in sentence and paragraph form as well as simple unstructured scanning items (such sales Ads). The patietn has completed home activates with improved carry over of strategies. Recommend outpatient speech therapy services 1x a week for 4 visits to address divided attention, delayed memory recall, and complex unstructured visual scanning to include the left field. Discharge 01/23/25: The patient has achieved all goals and is completing visual attention, sustained attention, and memory and functional level. Discharged with a HEP to continue to maintain skills. Plan of Care ST Services Indicated No
--- NOTE | 2025-01-26 17:51 | OTOPPROG ---
Assessment and note entered by Dilcia Mario OT Progress Information Assessment Status Progress Diagnosis CVA ICD-10 Condition Codes (OT) Generalized muscle weakness M62.81 Onset 10/11 Subjective Information Pt. reports he is progressing using cane intermittently for mobility. Pt. reports he went to another estate sale and did not have as much trouble because there were no stairs and he has more space to navigate and not be concerned about bumping into other people. Pt. reports he now goes go downstairs, using stairlift, but has not returned to living in basement or taking the basement stairs. Pt. reports he is now participating in more ADLs and IADLs including carrying his own laundry, making and preparing food (reports he cut cheese off a block of cheese today while making a sandwich). Pt. reports he went to the eye doctor who is getting him prism lenses to address his remaining left neglect, but states that even his doctor was impressed by his visual scanning to left. Pt. reports he has not been using dumbbells for exercise for the last several days due to return of intermittent pectoral pain and tightness. Assessment OT Clinical Summary Pt. is 49 year old M, presenting for 19th occupational therapy treatment and progress note, after experiencing Right Middle Cerebral Artery stroke on 10/12/24, after CABG x3 on 10/08/24. Pt. went to acute inpatient rehab for 15 days. Pt. displays maintained L UE strength, yet increased time for 9 hole peg test time while continuing to demonstrate limitations in fine and gross motor coordination and fine motor dexterity, also complicated previous L hand injuries including chronic numbness in 1st and 2nd fingers due to frostbite injury. Pt. also displays improved L visual neglect, requiring fewer prompts to address during tasks. Pt. displays overall progress in return to prior level of function, but is inconsistent with coordination, dynamic standing balance, and overall tolerance for activity and will benefit from continued skilled OT services including therapeutic exercises, therapeutic activities, neuro re-education, activity modifications, and overall safety training and awareness to facilitate return to greatest level of function. Plan of Care Interventions Therapeutic Exercise,Neuro Re-education, Therapeutic Activities,Cognitive Function,Self- Care/Home Management,Visual/Perceptual Retraining OT Services Indicated Yes Treatment Frequency and 2x week for 8 weeks Duration These treatments will address the objective and functional deficits as defined above. The patient will be advanced safely and appropriately in order for the patient to progress towards his/her prior level of function. Additional exercises will be introduced and as well as a comprehensive home exercise program upon discharge, if needed, ?to ensure carryover of functional gains achieved in the clinic. This treatment plan has been reviewed and agreement upon by the patient.
--- NOTE | 2025-01-26 17:51 | OPREHPOC ---
Outpatient Therapy Plan of Care This is a Multidisciplinary Plan of Care that may contain components documented by all disciplines (PT, OT, and ST.) PT Problem 1 PT Problem #1 Knowledge Deficit PT Goal 1 Goal / Goal Update *independent with HEP 12-22-24 progress goal met continue to progress education and HEP Target Visit 18 PT Problem 2 PT Problem #2 Impaired Strength PT Goal 1 Goal / Goal Update increase LE strength to improve mobility 1* gross strength of R and L LE 4+/5 single leg standing with good stability x 10 seconds 2* R 3* L 4* sit/stand without use of UE's x 5 reps 12-22-24 progress goals not met; improved with #3 to 3 seconds continue towards goals Target Visit 18 PT Problem 3 PT Problem #3 Impaired Balance PT Goal 1 Goal / Goal Update improve balance and mobility skills, to return to prior level of independent functioning 1* laws balance score of 52/56 2* 2 minute walking test distance of 425' without walker 3* up/down 12 steps with 1 hand railing, independent 4* 5 reps sit/stand time of 16 seconds 12-22-24 progress goals not met; improved with #1 to 45/56; #2 to 320'; #4 to 21 seconds continue towards goals: ADD: work simulated tasks: without loss of balance , 3x: *5 walking 20' and carrying 10# in one hand *6 lifting with one hand 5# weight off floor *7 lifting with one hand 5# and placing it shoulder height Target Visit 18 OT Problem 1 OT Problem #1 Knowledge Deficit OT Goal 1 Goal / Goal Update Pt. will demonstrate independence in HEP Progress 12/15/24 1) partially met, continue Progress 01/26/25 1) partially met, continue Target Visit 30 Progress Partially Met OT Problem 2 OT Problem #2 Impaired Coordination OT Goal 1 Goal / Goal Update Pt. will demonstrate increased bilateral coordination as demonstrated by completing 9-hole peg test <45 seconds on R and < 90 seconds on L Progress 12/15/24 1) goal met, update goal Update: Pt. will demonstrate increased bilateral coordination as demonstrated by completing 9-hole peg test <45 seconds on R and < 65 seconds on L , without dropping pegs during test Progress 01/26/25 12 not met, continue Target Visit 30 Progress Partially Met OT Problem 3 OT Problem #3 Impaired Balance OT Goal 1 Goal / Goal Update Pt. will demonstrate ability to perform 15 minutes of dynamic standing balance activities without rest to support increased ability to participate in IADLs including cooking, and community social outings Progress 12/15/24 1) partially met, continue goal; pt. reporting increased dynamic standing balance with functional activity outside of treatment, but often displays increasing fatigue and instability, using R side for compensation Progress 01/26/25 1) partially met, continue for consistency Target Visit 30 Progress Partially Met OT Problem 4 OT Problem #4 Impaired Strength OT Goal 1 Goal / Goal Update Pt. will demonstrate increased gross L UE strength to 65 lbs Progress 12/15/24 1) Goal met, pt. demonstrates >64 lbs of systems qa analyst strength in L UE, update goal Updated Goal: Pt. will demonstrate increased gross L UE strength to 70 lbs and R UE to 85 Progress 01/26/25 1) not met, continue Target Visit [address] Problem 1 ST Problem #[address] Goal 1 Goal / Goal Update The patient will participate in home programming to improve carry over/generalization of skills to the home environment Update 12/22/24: MET: Completing HEP and carrying over strategies. Target Visit [address] Problem 2 ST Problem #[address] Goal 1 Goal / Goal Update Cognition: 1. The patient will recall complex paragraph length information 90% Update 12/22/14: MET: Recall paragraph length information, moderately complexity, 3 details, presented auditorily 90%. 2. The patient will complete complex thought organization activities for functional material with 85% and minimal cues Update 12/22/24: MET: Completing complex thought organization 90% no cues. 3. The patient will processing auditory sentence and paragraph length information with 7-10 seconds with 90% accuracy Update 12/22/24: MET: Completing auditory processing lengthy information within 7-10 seconds 90% accuracy. Target Visit [address] Goal 2 Goal / Goal Update Update Goals 12/22/24 1. The patient will recall complex paragraph length information presented in written form 90% accuracy and minimal cues. Updated 01/23/25: Met 100% Independent 2. The patient will complete divided attention tasks with 85% accuracy and minimal cues. Updated 01/23/25: Met 95% Independent. Target Visit [address] Goal 1 Goal / Goal Update Visual Inattention: 1. The patient will complete visual scanning for written information sentence and paragraph length with 90% Update 12/22/24: MET: Able to canales written simple paragraph length information with 90% accuracy 2. The patient will complete functional unstructured visual scanning for applications, ads , etc. with 90% Update 12/22/24: Met the patient is completing simple scanning of short ads or applications 90% Target Visit [address] Goal 2 Goal / Goal Update Updated Goals 12/22/24 1. The patient will complete visual scanning for unstructured lengthy/complex functional written material (ADs, telephone book, TV guide, menus, etc.) with 90% Target Visit 4
--- NOTE | 2025-01-29 15:01 | OPREHPOC ---
Outpatient Therapy Plan of Care This is a Multidisciplinary Plan of Care that may contain components documented by all disciplines (PT, OT, and ST.) PT Problem 1 PT Problem #1 Knowledge Deficit PT Goal 1 Goal / Goal Update *independent with HEP 12-22-24 progress goal met continue to progress education and HEP 01-29-25 progress goal met continue to progress education and HEP Target Visit 26 PT Problem 2 PT Problem #2 Impaired Strength PT Goal 1 Goal / Goal Update increase LE strength to improve mobility 1* gross strength of R and L LE 4+/5 single leg standing with good stability x 10 seconds 2* R 3* L 4* sit/stand without use of UE's x 5 reps 12-22-24 progress goals not met; improved with #3 to 3 seconds continue towards goals 01-29-25 progress goals not met; partially met # 4- able to stand to sit without UE use continue towards goals Target Visit 26 PT Problem 3 PT Problem #3 Impaired Balance PT Goal 1 Goal / Goal Update improve balance and mobility skills, to return to prior level of independent functioning 1* laws balance score of 52/56 2* 2 minute walking test distance of 425' without walker 3* up/down 12 steps with 1 hand railing, independent 4* 5 reps sit/stand time of 16 seconds 12-22-24 progress goals not met; improved with #1 to 45/56; #2 to 320'; #4 to 21 seconds continue towards goals: ADD: work simulated tasks: without loss of balance , 3x: *5 walking 20' and carrying 10# in one hand *6 lifting with one hand 5# weight off floor *7 lifting with one hand 5# and placing it shoulder height 01-29-25 progress goals 3,5,6,7 met Target Visit 18 Progress Partially Met PT Goal 2 Goal / Goal Update 01-29-25 progress NEW GOALS: 1* Laws balance score of 52/56 2* sit to stand without use of UE x 5 reps 3* pt report NOT using the cane for mobility 4* pt perform simulated job task x 5 minutes: standing, lifting 5# with R and L UE, from floor to/from waist height and turning to place items on table, without loss of balance Target Visit 26 OT Problem 1 OT Problem #1 Knowledge Deficit OT Goal 1 Goal / Goal Update Pt. will demonstrate independence in HEP Progress 12/15/24 1) partially met, continue Progress 01/26/25 1) partially met, continue Target Visit 30 Progress Partially Met OT Problem 2 OT Problem #2 Impaired Coordination OT Goal 1 Goal / Goal Update Pt. will demonstrate increased bilateral coordination as demonstrated by completing 9-hole peg test <45 seconds on R and < 90 seconds on L Progress 12/15/24 1) goal met, update goal Update: Pt. will demonstrate increased bilateral coordination as demonstrated by completing 9-hole peg test <45 seconds on R and < 65 seconds on L , without dropping pegs during test Progress 01/26/25 12 not met, continue Target Visit 30 Progress Partially Met OT Problem 3 OT Problem #3 Impaired Balance OT Goal 1 Goal / Goal Update Pt. will demonstrate ability to perform 15 minutes of dynamic standing balance activities without rest to support increased ability to participate in IADLs including cooking, and community social outings Progress 12/15/24 1) partially met, continue goal; pt. reporting increased dynamic standing balance with functional activity outside of treatment, but often displays increasing fatigue and instability, using R side for compensation Progress 01/26/25 1) partially met, continue for consistency Target Visit 30 Progress Partially Met OT Problem 4 OT Problem #4 Impaired Strength OT Goal 1 Goal / Goal Update Pt. will demonstrate increased gross L UE strength to 65 lbs Progress 12/15/24 1) Goal met, pt. demonstrates >64 lbs of airplane cover maker strength in L UE, update goal Updated Goal: Pt. will demonstrate increased gross L UE strength to 70 lbs and R UE to 85 Progress 01/26/25 1) not met, continue Target Visit [address] Problem 1 ST Problem #[address] Goal 1 Goal / Goal Update The patient will participate in home programming to improve carry over/generalization of skills to the home environment Update 12/22/24: MET: Completing HEP and carrying over strategies. Target Visit [address] Problem 2 ST Problem #[address] Goal 1 Goal / Goal Update Cognition: 1. The patient will recall complex paragraph length information 90% Update 12/22/14: MET: Recall paragraph length information, moderately complexity, 3 details, presented auditorily 90%. 2. The patient will complete complex thought organization activities for functional material with 85% and minimal cues Update 12/22/24: MET: Completing complex thought organization 90% no cues. 3. The patient will processing auditory sentence and paragraph length information with 7-10 seconds with 90% accuracy Update 12/22/24: MET: Completing auditory processing lengthy information within 7-10 seconds 90% accuracy. Target Visit [address] Goal 2 Goal / Goal Update Update Goals 12/22/24 1. The patient will recall complex paragraph length information presented in written form 90% accuracy and minimal cues. Updated 01/23/25: Met 100% Independent 2. The patient will complete divided attention tasks with 85% accuracy and minimal cues. Updated 01/23/25: Met 95% Independent. Target Visit [address] Goal 1 Goal / Goal Update Visual Inattention: 1. The patient will complete visual scanning for written information sentence and paragraph length with 90% Update 12/22/24: MET: Able to canales written simple paragraph length information with 90% accuracy 2. The patient will complete functional unstructured visual scanning for applications, ads , etc. with 90% Update 12/22/24: Met the patient is completing simple scanning of short ads or applications 90% Target Visit [address] Goal 2 Goal / Goal Update Updated Goals 12/22/24 1. The patient will complete visual scanning for unstructured lengthy/complex functional written material (ADs, telephone book, TV guide, menus, etc.) with 90% Target Visit 4
--- NOTE | 2025-01-29 15:02 | PTOPPROG ---
Assessment and note entered by Lauren Moreno, PT Progress report Assessment Status progress ICD-10 Condition Codes (PT) Difficulty Walking R26.2,Abnormalities of gait and mobility R26.9 Other ICD-10 Condition Codes ( CABG, CVA with L neglect PT) Onset 10-11-24 Subjective Information doing better, walking some without the cane ~ 50% of the day; doing better on the stairs at home, with one hand rail Assessment PT Clinical Summary Dillon has received a total of 18 PT sessions. With today's assessment: does not have any pain; has not had any falls; is walking with the cane or without a device ~ 50% of the time; single leg standing time R x 2 seconds and L x 4 seconds, unstable; sit to stand with use of 1 UE and stand to sit without UE use; 5 reps sit/stand time of 25 seconds; Elliott balance score of 48/56; on 12 steps with one hand railing and alternate step pattern--reports at home, has only gone to his basement 2x; 2 minute walking test distance without assistive device of 375'; simulated job tasks of walking 30' and single hand carrying 10# weight in R or L; lifting 5# weight, with one hand floor/shoulder height x 5 reps without loss of balance and good body mechanics; education to progress HEP and safety with mobility. 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 Also discussed return to work at shorter shift of 4 hours, with progression to full 8 hour shift. With the maintenance position, he will not be able to use the cane, but can lean on the counter top or use the cane with the cashier gambling position. The goals were partially met. Continue PT to further increase dynamic and static standing balance and simulated work tasks. Plan of Care Interventions Gait Training,Neuro Re-education,Patient/Caregiver Education,Therapeutic Activities,Therapeutic Exercise PT Services Indicated Yes Treatment Frequency and 1-2x/wk for 8 visits Duration These treatments will address the objective and functional deficits as defined above. The patient will be advanced safely and appropriately in order for the patient to progress towards his/her prior level of function. Additional exercises will be introduced and as well as a comprehensive home exercise program upon discharge, if needed, ?to ensure carryover of functional gains achieved in the clinic. This treatment plan has been reviewed and agreement upon by the patient.
== END 2025-02-02 23:59 | disposition home or self-care (01) ==
LOC: ANHPT 14:00
PROVIDERS: PCP Family Medicine
DX: Z95.1 Presence of aortocoronary bypass graft (principal); I63.9 Cerebral infarction, unspecified
CPT/HCPCS: 92507; 92523; 97110; 97112; 97161; 97166; 97530